=== PATIENT | female | born 1985 | race African-American/Black ===

== ENCOUNTER 2016-12-31 14:55 | Emergency (ER) | payer SELFPAY ==
[~2016-12-31] VITALS: Ht 160 cm; Wt 107.0 kg
[~2016-12-31 14:55] MED LIST: IBUP800T23 PO; LISI-360 PO; PREV30CA36 PO
[2016-12-31 15:00] VITALS: BP 132/95; PULSE 110; RESP 12; TEMP 98; O2SAT 100
[2016-12-31 15:06] VITALS: BP 132/95; PULSE 122; RESP 16; O2SAT 98
[2016-12-31] MEDS ORDERED: SODIUM CHLOR 0.9% 1000 ML INJ 1,000 ML IV ONE ×3 (15:07→17:30)
[2016-12-31] MEDS ORDERED: levETIRAcetam 1000 MG INJ 100 ML IV ONE (15:15)
[2016-12-31] MEDS ORDERED: LORazepam 2 MG/ML VIAL IVS ONE (15:15)
[2016-12-31] MEDS ORDERED: SODIUM CHLORIDE 0.9% FLUSH 5 ML FLUSH IVF PRN (15:15)
[2016-12-31 15:37] LABS: AUTOMATED NEUTROPHIL # 14.3 TH/MM3 (1.8-7.7); BASOPHIL # 0.1 TH/MM3 (0-0.2); BASOPHIL % 0.5 % (0.0-2.0); HEMATOCRIT 41.9 % (35.0-46.0); HEMO FLAGS DIFF FINAL; LYMPH % 8.9 % (9.0-44.0); LYMPHOCYTE # 1.5 TH/MM3 (1.0-4.8); MEAN CELL VOLUME 92.4 FL (80.0-100.0); MEAN CORPUSCULAR HEMOGLOBIN 31.4 PG (27.0-34.0); MONO % 4.7 % (0.0-8.0); NEUT % 85.9 % (16.0-70.0); PLATELET COUNT 320 TH/MM3 (150-450); RED BLOOD COUNT 4.54 MIL/MM3 (4.00-5.30); RED CELL DISTRIBUTION WIDTH 13.2 % (11.6-17.2); WHITE BLOOD COUNT 16.6 TH/MM3 (4.0-11.0)
--- NOTE | 2016-12-31 15:52 | PD ---
HPI Chief Complaint: Seizure Time Seen by Provider: 15:06 Travel History International Travel<30 days: No Contact w/Intl Traveler<30days: No Traveled to known affect area: No History of Present Illness HPI Patient is a 31-year-old female who presents to emergency room with her for evaluation and treatment of seizures. Patient presents to ER with ongoing seizure. As per pt's , patient reports that patient has history of seizures, reports that she is on Keppra for her seizures and has not been able to take her medications for the past 5 days. Reports that she is currently on her menstrual cycle - reports that every time she has her period - she has n/v/d. Patient's reports that for the past 5 days, she has not been able to keep down any foods, fluids, medications. Reports that she had a few seizures yesterday, no trauma to head or neck. Reports that she had a seizure today prior to coming to the emergency room. As per EMS, patient was postictal on route to the emergency room, patient began to have tonic-clonic seizure upon arrival to the emergency room. PFSH Past Medical History Diminished Hearing: No Gastrointestinal Disorders: Yes (GASTRITIS) GERD: Yes Hypertension: Yes Seizures: Yes Influenza Vaccination: No ?: Not LMP: 12/31/2016 Menopausal: No : 2 Para: 1 Miscarriage: 1 Past Surgical History Section: Yes Gynecologic Surgery: Yes ( X1) Other Surgery: Yes (STOMACH BIOPSY) Social History Alcohol Use: No Tobacco Use: No (QUIT SMOKING 2 WEEKS) Substance Use: Yes (MARIJUANA OCCASIONALLY) Allergies-Medications (Allergen,Severity, Reaction): Coded Allergies: No Known Allergies (Unverified , 07/19/14) Reported Meds & Prescriptions Reported Meds & Active Scripts Active Zofran Odt (Ondansetron Odt) 4 Mg Tab 4 Mg SL Q6HR PRN Reported Keppra (Levetiracetam) 500 Mg Tab 500 Mg PO QID Lisinopril 10 Mg Tab 10 Mg PO DAILY Review of Systems ROS Limitations: Altered Mental Status, Unresponsive, Other: (patient actively seizing - unable to provide HPI) Physical Exam Narrative GENERAL: severe distress, pt actively seizing on initial evaluation SKIN: Warm and dry. HEAD: Atraumatic. Normocephalic. EYES: Pupils equal and round. No scleral icterus. No injection or drainage. ENT: No nasal bleeding or discharge. Mucous membranes pink and moist. NECK: Trachea midline. No JVD. CARDIOVASCULAR: tachycardic. No murmur appreciated. RESPIRATORY: No accessory muscle use. Clear to auscultation. Breath sounds equal bilaterally. GASTROINTESTINAL: Abdomen soft, non-tender, nondistended. Hepatic and splenic margins not palpable. MUSCULOSKELETAL: No obvious deformities. No clubbing. No cyanosis. No edema. NEUROLOGICAL patient actively seizing on exam Data Data Last Documented VS Vital Signs Date Time Temp Pulse Resp B/P Pulse Ox O2 Delivery O2 Flow Rate FiO2 12/31/16 16:25 90 12 176/106 100 Nasal Cannula 2 12/31/16 15:00 98.0 Orders Complete Blood Count With Diff (12/31/16 15:07) Electrocardiogram (12/31/16 ) Blood Glucose (12/31/16 15:07) Ecg Monitoring (12/31/16 15:07) Iv Access Insert/Monitor (12/31/16 15:07) Oximetry (12/31/16 15:07) Comprehensive Metabolic Panel (12/31/16 15:07) Sodium Chlor 0.9% 1000 Ml Inj (Ns 1000 M (12/31/16 15:07) Sodium Chloride 0.9% Flush (Ns Flush) (12/31/16 15:15) Lorazepam Inj (Ativan Inj) (12/31/16 15:15) Ua Includes Microscopic (12/31/16 15:07) Levetiracetam 1000 Mg Inj (Keppra 1000 M (12/31/16 15:15) Sodium Chlor 0.9% 1000 Ml Inj (Ns 1000 M (12/31/16 15:15) Bedside Glucose ANETA.AC&HS (12/31/16 15:10) Ondansetron Inj (Zofran Inj) (12/31/16 16:15) Pantoprazole Inj (Protonix Inj) (12/31/16 16:15) Chest, Single Ap (12/31/16 ) Potassium Cl 40 Meq/30 Ml Liq (Kcl 40 Me (01/01/17 09:00) Sodium Chlor 0.9% 1000 Ml Inj (Ns 1000 M (12/31/16 17:30) Labs Laboratory Tests Test 12/31/16 15:18 White Blood Count 16.6 TH/MM3 Red Blood Count 4.54 MIL/MM3 Hemoglobin 14.3 GM/DL Hematocrit 41.9 % Mean Corpuscular Volume 92.4 FL Mean Corpuscular Hemoglobin 31.4 PG Mean Corpuscular Hemoglobin 34.0 % Concent Red Cell Distribution Width 13.2 % Platelet Count 320 TH/MM3 Mean Platelet Volume 8.3 FL Neutrophils (%) (Auto) 85.9 % Lymphocytes (%) (Auto) 8.9 % Monocytes (%) (Auto) 4.7 % Eosinophils (%) (Auto) 0.0 % Basophils (%) (Auto) 0.5 % Neutrophils # (Auto) 14.3 TH/MM3 Lymphocytes # (Auto) 1.5 TH/MM3 Monocytes # (Auto) 0.8 TH/MM3 Eosinophils # (Auto) 0.0 TH/MM3 Basophils # (Auto) 0.1 TH/MM3 CBC Comment DIFF FINAL Differential Comment Sodium Level 136 MEQ/L Potassium Level 3.2 MEQ/L Chloride Level 102 MEQ/L Carbon Dioxide Level 18.5 MEQ/L Anion Gap 16 MEQ/L Blood Urea Nitrogen 14 MG/DL Creatinine 1.11 MG/DL Estimat Glomerular Filtration 68 ML/MIN Rate Random Glucose 112 MG/DL Calcium Level 9.2 MG/DL Total Bilirubin 0.8 MG/DL Aspartate Amino Transf 10 U/L (AST/SGOT) Alanine Aminotransferase 23 U/L (ALT/SGPT) Alkaline Phosphatase 64 U/L Total Protein 8.4 GM/DL Albumin 4.2 GM/DL [facility] Medical Decision Making Medical Screen Exam Complete: Yes Emergency Medical Condition: Yes Interpretation(s) EKG at 1607: NSR at 82bpm, qt/qtc: 394/432, no acute st or t wave changes Vital Signs Date Time Temp Pulse Resp B/P Pulse Ox O2 Delivery O2 Flow Rate FiO2 12/31/16 15:06 122 16 132/95 98 Nasal Cannula 3 12/31/16 15:00 98.0 110 12 132/95 100 CBC & BMP Diagram 12/31/16 15:18 Last Impressions Chest X-Ray 12/31/16 0000 Signed Impressions: Service Date/Time: Saturday, December 31, 2016 17:14 - CONCLUSION: No acute disease. Jeramy Schuster MD Differential Diagnosis electrolyte abnormality, arrhythmia, recurrently seizures secondary to medication noncompliance, gastritis, gastroenteritis Narrative Course Patient is a 31-year-old female who presents to emergency room with her for evaluation of seizure. Patient has history of seizure and is currently on Keppra, reports that for the past 5 days, patient has been unable to take her medication secondary to intractable nausea and vomiting. reports that patient had a few seizures yesterday, patient had a seizure today prior to coming to emergency room. Patient was brought to the emergency room by [facility] - she was postictal during transport. Upon presentation to emergency room, patient began having a tonic-clonic seizure. 2 mg of Ativan was given to patient as well Keppra load. labs ordered , patient placed on monitor - will continue to monitor patient Patient re-evaluated, patient now awake and alert x 3, pt reports pain to epigastrium, reports that she has been feeling nauseous and has been vomiting for the past 5 days and has not been able to keep down any medications or foods or fluid at this time. Patient reevaluated, patient reports that she is feeling much better. Patient is not drinking fluids without any difficulty. Patient's abdomen is soft, nontender, nondistended, no peritoneal signs. CBC WBC 16.6 Hemoglobin 14.3 Hematocrit 41.9 Platelets 320 BMP Sodium 136 Chloride 102 Potassium 3.2 Carbon dioxide 18.5 BUN 14 Creatinine 1.11 AST 10 ALT 23 Alkaline phosphatase 64 Leukocytosis most likely from stress response from intractable nausea and vomiting for the past 5 days. I did offer patient admission to the hospital as she had 2 seizures today, like to be discharged home with her as she can tolerate oral fluids at this time. Signs and symptoms of when to return to the emergency room was reviewed with patient. Patient will follow-up with primary care doctor and return to ER as needed. Patient was able to drink a cup of water prior to discharge. Diagnosis Primary Impression: Seizure Additional Impressions: Hypokalemia Dehydration Patient Instructions: General Instructions Additional Instructions: Please provide patient with a copy of her labs discharge Please return to emergency room if symptoms return or worsen Please return to emergency room immediately if you have another seizure tonight Please drink plenty of fluids Please follow-up with a neurologist as soon as possible Med/Other Pt SpecificInfo: Prescription(s) given Scripts Ondansetron Odt (Zofran Odt)4 Mg Tab4 Mg SL Q6HR PRN (Nausea/Vomiting) #30 TAB Ref 0 Prov:Theresa Starr DO 12/31/16 Disposition: 01 DISCHARGE HOME Condition: Stable Theresa Starr DO Dec 31, 2016 15:52
[2016-12-31 15:56] LABS: ANION GAP 16 MEQ/L (5-15); AST (GOT) 10 U/L (15-37); BICARBONATE 18.5 MEQ/L (21.0-32.0); BLOOD UREA NITROGEN 14 MG/DL (7-18); CHLORIDE 102 MEQ/L (98-107); POTASSIUM 3.2 MEQ/L (3.5-5.1); SODIUM (NA) 136 MEQ/L (136-145)
[2016-12-31 16:01] LABS: ALKALINE PHOSPHATASE 64 U/L (45-117); ALT (GPT) 23 U/L (10-53); GLOMERULAR FILTRATION RATE 68 ML/MIN (>89); TOTAL BILIRUBIN ADULT 0.8 MG/DL (0.2-1.0)
[2016-12-31] MEDS ORDERED: PANTOPRAZOLE SODIUM 40 MG VIAL IVP ONE (16:15)
[2016-12-31] MEDS ORDERED: ONDANSETRON HCL 4 MG/2 ML VIAL IVP ONE (16:15)
[2016-12-31 16:25] VITALS: BP 176/106; PULSE 90; RESP 12; O2SAT 100
[2016-12-31] MEDS ORDERED: LEVE500 PO (16:37)
[2016-12-31] MEDS ORDERED: LISI10TA3 PO (16:37)
--- NOTE | 2016-12-31 17:42 | RADRPT ---
EXAM DATE/TIME: 12/31/2016 17:14 [facility] COMPARISON: No previous studies available for comparison. INDICATIONS : Vomiting MEDICAL HISTORY : Cardiovascular disease. SURGICAL HISTORY : None. ENCOUNTER: Initial ACUITY: 1 week PAIN SCORE: 8/10 LOCATION: Bilateral chest FINDINGS: A single view of the chest demonstrates the lungs to be symmetrically aerated without evidence of mas s, infiltrate or effusion. The cardiomediastinal contours are unremarkable. Osseous structures are intact. There is no evidence of free air in the upper abdomen. CONCLUSION: No acute disease. Jeramy Schuster MD on December 31, 2016 at 17:41 Board Certified Radiologist. This report was verified electronically.
[2016-12-31] MEDS ORDERED: ZOFR4TAB3 SL (17:48)
[2016-12-31 18:07] VITALS: BP 176/111; PULSE 90; RESP 16; O2SAT 100
[2016-12-31 19:02] VITALS: BP 176/99
[2016-12-31] MEDS ORDERED: POTASSIUM CL 40 MEQ/30 ML LIQ UDC PO ONE (19:15)
[2017-01-01] MEDS ORDERED: POTASSIUM CL 40 MEQ/30 ML LIQ UDC NG SCH (09:00)
--- NOTE | 2017-01-01 10:50 | EKG ---
Date Performed: 12/31/2016 Time Performed: 16:07:38 PTAGE: 31 years EKG: Sinus rhythm SLIGHT NONSPECIFIC INTRAVENTRICULAR CONDUCTION DELAY, MAY BE A NORMAL VARIANT. NORMAL ECG NO PREVIOUS TRACING DOCTOR: Jamie Cadet Interpretating Date/Time 01/01/2017 10:48:51
[2017-01-11] MEDS ORDERED: CARV3.12 PO ×2 (14:53→15:09)
[2017-01-11] MEDS ORDERED: AMLO10TA2 PO ×2 (14:53→15:09)
[2017-01-11] MEDS ORDERED: LISI40TA PO ×2 (14:53→15:09)
[2017-01-11] MEDS ORDERED: ZOFR4TAB3 SL (15:09)
[2017-01-11] MEDS ORDERED: KEPP10002 PO (15:09)
[2017-01-11] MEDS ORDERED: DILA100C PO (15:09)
== END 2016-12-31 19:25 | disposition home or self-care (01) ==
LOC: NEPC 14:55
DX: R56.9 Unspecified convulsions (principal); E87.6 Hypokalemia; E86.0 Dehydration; D72.829 Elevated white blood cell count, unspecified; R11.2 Nausea with vomiting, unspecified; I10 Essential (primary) hypertension; K21.9 Gastro-esophageal reflux disease without esophagitis; Z87.891 Personal history of nicotine dependence
CPT/HCPCS: 71010; 80053; 85025; 93005; 96361; 96365; 96374; 96375; 99284; C9113; J1953; J2060; J2405; J7030

== ENCOUNTER 2017-01-02 06:59 | Inpatient (IN) | payer SELFPAY ==
[2017-01-02] VITALS (9 sets, daily range): BP systolic 139–179; BP diastolic 63–115; PULSE 82–102; RESP 16–18; TEMP 96.7–98.8; O2SAT 97–100
[~2017-01-02] VITALS: Ht 172.7 cm; Wt 115.0 kg
[~2017-01-02 06:59] MED LIST changes: -IBUP800T23 PO; +LEVE500 PO; -LISI-360 PO; +LISI10TA3 PO; -PREV30CA36 PO; +ZOFR4TAB3 SL
[2017-01-02] MEDS: SODIUM CHLORIDE 0.9% FLUSH 5 ML FLUSH IVF PRN ×2 (07:00→07:38)
--- NOTE | 2017-01-02 07:26 | PD ---
HPI Chief Complaint: Seizure Time Seen by Provider: 07:24 Travel History International Travel<30 days: No Contact w/Intl Traveler<30days: No Traveled to known affect area: No History of Present Illness HPI 31-year-old female with history of seizures, gastritis, presents to the ER brought in by EMS because she had 10-12 seizures this morning according to family. She was seen in the ER several days ago for seizures, has been having problems with her gastritis so she is vomiting up her seizure medication. She is currently post ictal. They deny any other issues. Modifying Factors: None Associated Signs & Symptoms: Multiple seizures today Risk Factors: History of seizures PFSH Past Medical History Cardiovascular Problems: Yes (HBP) Diminished Hearing: No Gastrointestinal Disorders: Yes (GASTRITIS) GERD: Yes Hypertension: Yes Seizures: Yes Menopausal: No : 2 Para: 1 Miscarriage: 1 Past Surgical History Section: Yes Gynecologic Surgery: Yes ( X1) Other Surgery: Yes (STOMACH BIOPSY) Social History Alcohol Use: No Tobacco Use: No (QUIT SMOKING 2 WEEKS) Substance Use: Yes (MARIJUANA OCCASIONALLY) Allergies-Medications (Allergen,Severity, Reaction): Coded Allergies: No Known Allergies (Unverified , 01/02/17) Reported Meds & Prescriptions Reported Meds & Active Scripts Active Zofran Odt (Ondansetron Odt) 4 Mg Tab 4 Mg SL Q6HR PRN Reported Keppra (Levetiracetam) 500 Mg Tab 500 Mg PO QID Lisinopril 10 Mg Tab 10 Mg PO DAILY Review of Systems ROS Limitations: Altered Mental Status Physical Exam Narrative GENERAL: Well-nourished, well-developed young -[place] female patient who is currently awake, alert, but disoriented and not able to answer questions. SKIN: Warm and dry. HEAD: Normocephalic. EYES: No scleral icterus. No injection or drainage. NECK: Supple, trachea midline. CARDIOVASCULAR: Regular rate and rhythm without murmurs, gallops, or rubs. RESPIRATORY: Breath sounds equal bilaterally. No accessory muscle use. GASTROINTESTINAL: Abdomen soft, non-tender, nondistended. MUSCULOSKELETAL: No cyanosis, or edema. BACK: Nontender without obvious deformity. No CVA tenderness. Data Data Last Documented VS Vital Signs Date Time Temp Pulse Resp B/P Pulse Ox O2 Delivery O2 Flow Rate FiO2 01/02/17 09:00 84 17 175/91 100 Room Air 01/02/17 07:04 98.5 Orders Complete Blood Count With Diff (01/02/17 07:20) Electrocardiogram (01/02/17 ) Blood Glucose (01/02/17 07:20) Ecg Monitoring (01/02/17 07:20) Iv Access Insert/Monitor (01/02/17 07:20) Oximetry (01/02/17 07:20) Comprehensive Metabolic Panel (01/02/17 07:20) Sodium Chloride 0.9% Flush (Ns Flush) (01/02/17 07:30) Ondansetron Inj (Zofran Inj) (01/02/17 07:45) Labs Laboratory Tests Test 01/02/17 07:00 White Blood Count 14.5 TH/MM3 Red Blood Count 4.14 MIL/MM3 Hemoglobin 13.2 GM/DL Hematocrit 38.4 % Mean Corpuscular Volume 92.9 FL Mean Corpuscular Hemoglobin 31.9 PG Mean Corpuscular Hemoglobin 34.4 % Concent Red Cell Distribution Width 13.3 % Platelet Count 302 TH/MM3 Mean Platelet Volume 9.9 FL Neutrophils (%) (Auto) 81.3 % Lymphocytes (%) (Auto) 13.3 % Monocytes (%) (Auto) 4.7 % Eosinophils (%) (Auto) 0.1 % Basophils (%) (Auto) 0.6 % Neutrophils # (Auto) 11.8 TH/MM3 Lymphocytes # (Auto) 1.9 TH/MM3 Monocytes # (Auto) 0.7 TH/MM3 Eosinophils # (Auto) 0.0 TH/MM3 Basophils # (Auto) 0.1 TH/MM3 CBC Comment AUTO DIFF Differential Comment AUTO DIFF CONFIRMED Platelet Estimate NORMAL Platelet Morphology Comment NORMAL Sodium Level 138 MEQ/L Potassium Level 3.9 MEQ/L Chloride Level 104 MEQ/L Carbon Dioxide Level 23.9 MEQ/L Anion Gap 10 MEQ/L Blood Urea Nitrogen 12 MG/DL Creatinine 0.97 MG/DL Estimat Glomerular Filtration 80 ML/MIN Rate Random Glucose 99 MG/DL Calcium Level 8.7 MG/DL Total Bilirubin 0.9 MG/DL Aspartate Amino Transf 25 U/L (AST/SGOT) Alanine Aminotransferase 20 U/L (ALT/SGPT) Alkaline Phosphatase 56 U/L Total Protein 7.5 GM/DL Albumin 3.8 GM/DL MDM Medical Decision Making Medical Screen Exam Complete: Yes Emergency Medical Condition: Yes Medical Record Reviewed: Yes Interpretation(s) EKG shows NSR, no ST elevation or depression, and no arrhythmias. No significant T-wave inversions. Laboratory Tests Test 01/02/17 07:00 White Blood Count 14.5 TH/MM3 (4.0-11.0) Neutrophils (%) (Auto) 81.3 % (16.0-70.0) Neutrophils # (Auto) 11.8 TH/MM3 (1.8-7.7) Estimat Glomerular Filtration 80 ML/MIN (>89) Rate Differential Diagnosis Seizuresbreakthrough seizures versus metabolic issues Narrative Course Patient with known history of seizures, has been vomiting up her Keppra according to family and has had multiple seizures this morning. She arrived post ictal, still postictal in the ER. She has had no further episodes of seizure in the ER. At this point, my plan would be to medically admit her for further evaluation and treatment with neurology. Case was discussed with family practice resident service for admission. Lab work did not indicate any significant metabolic issues. Vital signs are stable. Diagnosis Primary Impression: Seizure Admitting Information Admitting Physician Requests: Admit Mason Olivares MD Jan 02, 2017 07:26
[2017-01-02] MEDS ORDERED: ONDANSETRON HCL 4 MG/2 ML VIAL IV PUSH ONE (07:45)
[2017-01-02 07:53] LABS: AUTOMATED NEUTROPHIL # 11.8 TH/MM3 (1.8-7.7); BASOPHIL # 0.1 TH/MM3 (0-0.2); BASOPHIL % 0.6 % (0.0-2.0); EOSINOPHIL % 0.1 % (0.0-4.0); HEMATOCRIT 38.4 % (35.0-46.0); LYMPH % 13.3 % (9.0-44.0); LYMPHOCYTE # 1.9 TH/MM3 (1.0-4.8); MEAN CELL VOLUME 92.9 FL (80.0-100.0); MEAN CORPUSCULAR HEMOGLOBIN 31.9 PG (27.0-34.0); MEAN CORPUSCULAR HGB CONC 34.4 % (32.0-36.0); MONO % 4.7 % (0.0-8.0); NEUT % 81.3 % (16.0-70.0); PLATELET COUNT 302 TH/MM3 (150-450); RED BLOOD COUNT 4.14 MIL/MM3 (4.00-5.30); RED CELL DISTRIBUTION WIDTH 13.3 % (11.6-17.2); WHITE BLOOD COUNT 14.5 TH/MM3 (4.0-11.0)
[2017-01-02 08:15] LABS: ALKALINE PHOSPHATASE 56 U/L (45-117); ALT (GPT) 20 U/L (10-53); ANION GAP 10 MEQ/L (5-15); AST (GOT) 25 U/L (15-37); BICARBONATE 23.9 MEQ/L (21.0-32.0); BLOOD UREA NITROGEN 12 MG/DL (7-18); CHLORIDE 104 MEQ/L (98-107); GLOMERULAR FILTRATION RATE 80 ML/MIN (>89); SODIUM (NA) 138 MEQ/L (136-145); TOTAL BILIRUBIN ADULT 0.9 MG/DL (0.2-1.0)
[2017-01-02 08:16] LABS: POTASSIUM 3.9 MEQ/L (3.5-5.1)
[2017-01-02 08:37] LABS: HEMO FLAGS AUTO DIFF
[2017-01-02 09:12] LABS: PLATELET ESTIMATE SMEAR NORMAL (NORMAL); PLATELET MORPHOLOGY NORMAL (NORMAL); SCAN/DIFF AUTO DIFF CONFIRMED
--- NOTE | 2017-01-02 09:41 | HHI.HP ---
HPI Service Family Medicine Primary Care Physician No Primary Care Physician Admission Diagnosis multiple seizures Diagnoses: Chief Complaint: seizures International Travel<30 Days: No Contact w/Intl Traveler<30days: No Known Affected Area: No History of Present Illness 31 y/o -[place] female with history of HTN and seizures, presents with multiple seizures at home. History obtained from , who was presents. Pt in post-ictal state. States she was in bathtub this morning and had several seizures. Per spouse, was shaking uncontrollably, foaming at mouth, and was biting on tongue. No loss of bowel/bladder function. Is on Keppra at home. Has history of gastritis and for the last 7 days, has been unable to keep any food down or her medications. She was seen in ED 2 days ago for seizures as well. Has no neurologist, due to no insurance. Has no PCP. Per , states pt has had seizures for at least 8 years, unsure of when she started having them. ( Zach Wynn MD R1) Review of Systems ROS Limitations: Clinical Condition (post-ictal) (Zach Wynn MD R1) Past Family Social History Past Medical History HTN Seizures Gastritis Hypokalemia Past Surgical History Stomach biopsy Reported Medications Reported Meds & Active Scripts Active Zofran Odt (Ondansetron Odt) 4 Mg Tab 4 Mg SL Q6HR PRN Reported Keppra (Levetiracetam) 500 Mg Tab 500 Mg PO QID Lisinopril 10 Mg Tab 10 Mg PO DAILY (Zach Wynn MD R1) Allergies: Coded Allergies: No Known Allergies (Unverified , 01/02/17) Active Ordered Medications Active Medications IV Flush (NS Flush) 2 ml UNSCH PRN IVF Last administered on 01/02/17 07:38; Admin Dose 2 ML; Start 01/02/17 at 07:30 Ondansetron HCl (Zofran Inj) 4 mg ONCE ONCE IV PUSH Last administered on 07:37; Admin Dose 4 MG; Start 01/02/17 at 07:45; Stop 01/02/17 at 07:46; Status DC Family History Dad & mom have hx of epilepsy Social History Trying to go to school Hx of marijuana, quit 3 weeks ago No tobacco use No alcohol use (Zach Wynn MD R1) Physical Exam Vital Signs Vital Signs Date Time Temp Pulse Resp B/P Pulse Ox O2 Delivery O2 Flow Rate FiO2 01/02/17 09:00 84 17 175/91 100 Room Air 01/02/17 07:25 18 100 Room Air 01/02/17 07:05 86 18 100 Room Air 01/02/17 07:04 98.5 83 18 145/97 100 Physical Exam GENERAL: This is a well-nourished, well-developed patient. Awake, alert, unable to answer questions SKIN: Acanthosis nigrans on neck. Cool and dry. HEAD: Atraumatic. Normocephalic. No temporal or scalp tenderness. EYES: Pupils equal round and reactive. Extraocular motions intact. No scleral icterus. No injection or drainage. NECK: Trachea midline. No JVD or lymphadenopathy. Supple, nontender CARDIOVASCULAR: Regular rate and rhythm without murmurs, gallops, or rubs. RESPIRATORY: Clear to auscultation. Breath sounds equal bilaterally. No wheezes , rales, or rhonchi. GASTROINTESTINAL: Abdomen soft, non-tender, nondistended. No hepato-splenomegaly , or palpable masses. No guarding. MUSCULOSKELETAL: Extremities without clubbing, cyanosis, or edema. No joint tenderness, effusion, or edema noted. No calf tenderness. NEUROLOGICAL: Awake and alert. Not oriented, unable to answer questions. Laboratory Laboratory Tests Test 01/02/17 07:00 White Blood Count 14.5 Red Blood Count 4.14 Hemoglobin 13.2 Hematocrit 38.4 Mean Corpuscular Volume 92.9 Mean Corpuscular Hemoglobin 31.9 Mean Corpuscular Hemoglobin 34.4 Concent Red Cell Distribution Width 13.3 Platelet Count 302 Mean Platelet Volume 9.9 Neutrophils (%) (Auto) 81.3 Lymphocytes (%) (Auto) 13.3 Monocytes (%) (Auto) 4.7 Eosinophils (%) (Auto) 0.1 Basophils (%) (Auto) 0.6 Neutrophils # (Auto) 11.8 Lymphocytes # (Auto) 1.9 Monocytes # (Auto) 0.7 Eosinophils # (Auto) 0.0 Basophils # (Auto) 0.1 CBC Comment AUTO DIFF Differential Comment AUTO DIFF CONFIRMED Platelet Estimate NORMAL Platelet Morphology Comment NORMAL Sodium Level 138 Potassium Level 3.9 Chloride Level 104 Carbon Dioxide Level 23.9 Anion Gap 10 Blood Urea Nitrogen 12 Creatinine 0.97 Estimat Glomerular Filtration 80 Rate Random Glucose 99 Calcium Level 8.7 Total Bilirubin 0.9 Aspartate Amino Transf 25 (AST/SGOT) Alanine Aminotransferase 20 (ALT/SGPT) Alkaline Phosphatase 56 Total Protein 7.5 Albumin 3.8 (Zach Wynn MD R1) Result Diagram: 01/02/17 0700 01/02/17 0700 Assessment and Plan Assessment and Plan 31 y/o female with history of seizures and HTN presents with uncontrolled seizures after unable to keep anti-seizure medications down. Will admit for seizure management. Code Status Full Discussed Condition With Dr. Doss (Zach Wynn MD R1) Attending Attestation Patient seen and examined. Case reviewed and discussed with the resident team. Agree with plan of care as discussed with me and documented in the resident note. (Montserrat Villeda MD) Problem List: (1) Seizure Status: Acute Plan: History of seizures, on Keppra at home Witnessed several seizures at home by No neurologist -Consult neurology,appreciate recs -Start Keppra 1000mg IV, followed by Keppra 500mg PO q12H -Dilantin 1000mg IV, then Dilantin 100mg IV q8H -Ativan PRN seizures -Seizure precautions -UDS -Neuro checks q4H -Consult CM (2) HTN (hypertension) Status: Acute Plan: 145/97 on admission. History of HTN Per spouse, on several blood pressure meds, but only lisinopril listed on EMR -Continue lisinopril 10mg daily -Spouse will bring in other BP meds -Hydralazine 10mg PRN SBP>180, DBP>100 (3) Nausea & vomiting Status: Acute Plan: Hx of gastritis -Zofran PRN nausea -Protonix 40mg IV daily (4) FEN Status: Acute Plan: Fluids: none Electrolytes: wnl, continue to monitor Nutrition: NPO DVT ppx: SCDs (Zach Wynn MD R1) Physician Certification 2 Midnight Certification Type: Admission for Inpatient Services Order for Inpatient Services The services are ordered in accordance with Medicare regulations or non- Medicare payer requirements, as applicable. In the case of services not specified as inpatient-only, they are appropriately provided as inpatient services in accordance with the 2-midnight benchmark. Estimated LOS (days): 3 days is the estimated time the patient will need to remain in the hospital, assuming treatment plan goals are met and no additional complications. Post-Hospital Plan: Home (Zach Wynn MD R1) Problem Qualifiers (1) HTN (hypertension): Qualified Code: I10 - Essential hypertension (2) Nausea & vomiting: Qualified Code: R11.2 - Nausea and vomiting, intractability of vomiting not specified, unspecified vomiting type Zach Wynn MD R1 Jan 02, 2017 09:41 Montserrat Villeda MD Jan 02, 2017 14:29
[2017-01-02] MEDS ORDERED: levETIRAcetam 1000 MG INJ 100 ML IV ONE (09:45)
[2017-01-02] MEDS ORDERED: hydrALAZINE HCL 20 MG/ML VIAL IV PRN (09:45)
[2017-01-02] MEDS ORDERED: IBUPROFEN 600 MG TAB PO PRN (09:45)
[2017-01-02] MEDS ORDERED: ACETAMINOPHEN 325 MG TAB PO PRN (09:45)
[2017-01-02] MEDS ORDERED: SODIUM CHLORIDE 0.9% FLUSH 5 ML FLUSH IVF PRN (09:45)
--- NOTE | 2017-01-02 10:03 | HHI.FPPN ---
Subjective Remarks Pt. seen, examined and discussed with Drs. Doss and Tianna. This is a 31 yo AA female with known seizure history who was observed by family this a.m. to have 10-12 seizures at home. apparently has been experiencing nausea and vomiting and has been unable to keep her Keppra down. She arrived in ED in a post-ictal state. Pt. was seen in ED 12-31-16 with history of several days of n/v/d which she often experienced while on her menses. She had had several seizures prior to the ED visit. Information obtained from the spouse; apparently has had seizure disorder as long as they have been together ( 8 years) and ? long before that. PMH: hypertension and seizures and GERD See H&P for this admission for additional past, family and social history. Pt. is post-ictal. Has been hospitalized at [facility] in past for her seizures. Objective Vitals Vital Signs Date Time Temp Pulse Resp B/P Pulse Ox O2 Delivery O2 Flow Rate FiO2 01/02/17 09:00 84 17 175/91 100 Room Air 01/02/17 07:25 18 100 Room Air 01/02/17 07:05 86 18 100 Room Air 01/02/17 07:04 98.5 83 18 145/97 100 Result Diagram: 01/02/17 0700 01/02/17 0700 Objective Remarks O. CONSTITUTIONAL/GEN: normally nourished, somnolent/ post-ictal. EYES: conjunctiva normal ENT: Mouth closed; has been vomiting while in ED NECK: acanthosis nigricans LUNGS: clear A-P, respiratory effort is normal. CARDIOVASCULAR: RR without murmur or gallop. No significant edema. GI/ABD: soft without masses, without organomegaly. BS + NEURO: Pt is post-ictal and nonverbal SKIN: color normal, no rashes noted, acanthosis nigricans HEME/LYMPH: no bruising, petechia or significant adenopathy MUSC: Extremities are normal in appearance. PSYCH/MENTAL STATUS: Barely arousable, opens eyes at times, nonverbal at this time A/P Assessment and Plan 31 yo AA female with known seizure disorder on Keppra with exacerbation of her GERD and n/v/d which she experiences when menstruating. Has been unable to keep her seizure medication down. Admit to inpatient, EEG, monitor for seizures. Attending Attestation Patient seen and examined. Case reviewed and discussed with the resident team. Agree with plan of care as discussed with me and documented in the resident note. Montserrat Villeda MD Jan 02, 2017 10:03
[2017-01-02] MEDS: PANTOPRAZOLE SODIUM 40 MG VIAL IV PUSH SCH (10:07)
[2017-01-02] MEDS ORDERED: LORazepam 2 MG/ML VIAL IV PRN (10:45)
[2017-01-02] MEDS ORDERED: PHENYTOIN INJ 1,000 MG in SODIUM CHLORIDE 0.9% INJ 100 ML IV ONE (11:00)
--- NOTE | 2017-01-02 11:56 | MB ---
cc: ALICIA RUSSO M.D. DATE OF CONSULTATION: 01/02/2017 REASON FOR CONSULTATION A 31-year-old woman seen in consultation because of multiple seizures today. HISTORY OF PRESENT ILLNESS She apparently had multiple seizures at home. She had been vomiting her Keppra. There were no seizures in the emergency room. She has been given Keppra one gram IV and now also receiving one gram of Dilantin at the time of my visit to the patient in the emergency room. The patient reportedly takes Keppra 500 mg four times a day and lisinopril 10 mg daily. It is reported that she does not see doctors outpatient because of no insurance. NEUROLOGICAL EXAMINATION The neurological exam showed the patient to be lethargic but partially aroused. An EEG was in progress. She was following commands, moving all four extremities, but she would not count fingers. She looked lethargic for the exam. Reflexes were 2+ at the knees and ankles, 1+ at the elbows, and plantar response flexor. LABORATORY Blood work includes white count 14.5, hemoglobin 13.2, platelets 302. Chemistry essentially normal. Toxicology: Alcohol less than 3. IMAGING No imaging studies of the brain encountered on the lifetime summary here. ASSESSMENT Status epilepticus, no additional seizures after arriving in the ER. She has been treated with Keppra IV and Dilantin IV. An EEG was in progress showing no overt epileptiform discharges. RECOMMENDATIONS Continue Keppra and dose should be one gram twice a day, and also continue Dilantin 100 mg three times a day. Will request an MRI of the brain as well. Thank you for asking us to assist in her care. MD SAUL Serrano/BT /11:18 AM /11:49 AM
--- NOTE | 2017-01-02 12:48 | MG ---
cc: MARCIO VALENTIN M.D. Lab No: [id number] Date: 01/02/2017 Age: Sex: F Race: TECHNIQUE 17-channel EEG. DESCRIPTION: The background rhythm reveals mild slowing in the theta range at roughly 5-6 Hz. There is occasional muscle artifact present. There is some beta activity as well which is probably medication effect. No lateralizing features are seen. No epileptiform discharges are present. INTERPRETATION Mildly abnormal study on the basis of mild slowing, consistent with either drowsy state or mild encephalopathy. No epileptiform features are seen. MD ROLAND Trevino/KINGS /12:38 PM /12:46 PM
[2017-01-02] MEDS ORDERED: GADODIAMIDE PF 287 MG/ML 5 ML VIAL (for RAD MRI) IV ONE (13:25)
--- NOTE | 2017-01-02 13:46 | RADRPT ---
EXAM DATE/TIME: 01/02/2017 13:03 [facility] COMPARISON: No previous studies available for comparison. INDICATIONS : Seizures. CONTRAST: 23 cc Omniscan (gadodiamide) IV MEDICAL HISTORY : Seizures. Hypertension. SURGICAL HISTORY : section. ENCOUNTER: Initial ACUITY: 1 day PAIN SCORE: Nonresponsive. LOCATION: Head TECHNIQUE: Multiplanar, multisequence MRI of the brain was performed both prior to and following the administrat ion of paramagnetic contrast. FINDINGS: CEREBRUM: The ventricles are normal for age. No evidence of midline shift, mass lesion, hemorrhage or acute in farction. No extraaxial fluid collections are seen. The pituitary gland and suprasellar cistern are normal in configuration. WHITE MATTER: No significant signal abnormalities are seen in the white matter. POSTERIOR FOSSA: The cerebellum and brainstem are intact. The 4th ventricle is midline. The cerebellopontine angle is unremarkable. The cerebellar tonsils are normal in position. DIFFUSION IMAGING: No focal areas of restricted diffusion are seen. No evidence of acute infarction. EXTRACRANIAL: The visualized portions of the orbits and paranasal sinuses are unremarkable. POST-CONTRAST: No abnormal areas of parenchymal or dural enhancement. No evidence of blood-brain barrier breakdown. CONCLUSION: Unremarkable exam. Jeramy Schuster MD on January 02, 2017 at 13:39 Board Certified Radiologist. This report was verified electronically.
[2017-01-02] MEDS: PHENYTOIN INJ 100 MG/2 ML VIAL IVS SCH (17:56)
[2017-01-02] MEDS: levETIRAcetam 500 MG TAB PO SCH ×2 (17:58→20:41)
[2017-01-02] MEDS: ONDANSETRON HCL 4 MG/2 ML VIAL IV PUSH PRN ×2 (17:58→23:30)
[2017-01-02] MEDS: SODIUM CHLORIDE 0.9% FLUSH 5 ML FLUSH IVF SCH (20:41)
[2017-01-02] MEDS: DOCUSATE SODIUM 50 MG/SENNA 8.6 MG TAB PO SCH (20:41)
--- NOTE | 2017-01-02 22:45 | EKG ---
Date Performed: 01/02/2017 Time Performed: 07:42:08 PTAGE: 31 years EKG: Sinus rhythm WITH SHORT SD INTERVAL BORDERLINE ECG PREVIOUS TRACING : 12/31/2016 16.07 DOCTOR: Genia Ramirez Interpretating Date/Time 01/02/2017 22:43:45
[2017-01-03] VITALS (7 sets, daily range): BP systolic 129–170; BP diastolic 78–106; PULSE 79–105; RESP 16–20; TEMP 98.1–99.3; O2SAT 96–99
[2017-01-03] MEDS: PHENYTOIN INJ 100 MG/2 ML VIAL IVS SCH ×2 (01:56→09:28)
[2017-01-03 07:17] LABS: AUTOMATED NEUTROPHIL # 10.4 TH/MM3 (1.8-7.7); BASOPHIL % 0.4 % (0.0-2.0); EOSINOPHIL % 0.1 % (0.0-4.0); HEMO FLAGS DIFF FINAL; LYMPHOCYTE # 1.5 TH/MM3 (1.0-4.8); MEAN CELL VOLUME 93.8 FL (80.0-100.0); MEAN CORPUSCULAR HEMOGLOBIN 32.1 PG (27.0-34.0); MEAN CORPUSCULAR HGB CONC 34.2 % (32.0-36.0); MONO % 6.7 % (0.0-8.0); NEUT % 80.8 % (16.0-70.0); PLATELET COUNT 287 TH/MM3 (150-450); RED BLOOD COUNT 4.27 MIL/MM3 (4.00-5.30); RED CELL DISTRIBUTION WIDTH 13.5 % (11.6-17.2); WHITE BLOOD COUNT 12.9 TH/MM3 (4.0-11.0)
[2017-01-03] MEDS ORDERED: levETIRAcetam 500 MG TAB PO SCH (09:00)
[2017-01-03] MEDS: DOCUSATE SODIUM 50 MG/SENNA 8.6 MG TAB PO SCH ×2 (09:00→21:13)
[2017-01-03] MEDS: levETIRAcetam 500 MG TAB PO SCH (09:26)
[2017-01-03] MEDS: LISINOPRIL 10 MG TAB PO SCH (09:26)
[2017-01-03] MEDS: PANTOPRAZOLE SODIUM 40 MG VIAL IV PUSH SCH (09:29)
[2017-01-03] MEDS: SODIUM CHLORIDE 0.9% FLUSH 5 ML FLUSH IVF SCH ×2 (09:45→23:20)
--- NOTE | 2017-01-03 11:34 | HHI.FPPN ---
Subjective Remarks No acute events overnight. Vital signs remained stable. She has not had any recurrence of seizures. She denies any chest pain, shortness of breath, abdominal pain, nausea, vomiting, or new concerns at this time. She feels as though she is ready to start eating a bowl like to begin on a liquid diet and advance as tolerated. (Casey Lopez MD R3) Objective Vitals Vital Signs Date Time Temp Pulse Resp B/P Pulse Ox O2 Delivery O2 Flow Rate FiO2 01/03/17 08:00 98.1 82 20 136/91 97 01/03/17 04:53 98.7 79 16 157/106 96 01/02/17 23:42 98.8 82 18 179/115 100 01/02/17 19:30 98.8 91 16 165/115 99 01/02/17 17:40 96.7 93 16 156/107 100 01/02/17 14:00 97.8 96 18 158/82 100 Room Air 01/02/17 11:43 98.0 102 18 139/63 100 Room Air (Casey Lopez MD R3) Result Diagram: 01/03/17 0614 01/02/17 0700 Objective Remarks GEN: well nourished, alert, conversive EYES: conjunctiva normal, no icterus or injection NECK: acanthosis nigricans LUNGS: clear A-P, respiratory effort is normal. CARDIOVASCULAR: RR without murmur or gallop. No significant edema. GI/ABD: soft without masses, without organomegaly. BS + NEURO: Alert, oriented, CN II-XII intact SKIN: color normal, no rashes noted, acanthosis nigricans MUSC: MAEWD. No LE swelling or TTP. PSYCH: judgment/insight intact. Normal speech. (Casey Lopez MD R3) A/P Assessment and Plan 31 yo AA female with known seizure disorder on Keppra who presents with seizure following nausea/vomiting and inability to tolerate PO intake. Discharge Planning Pending clearance by neurology and tolerating PO. Anticipate discharge to home as early as tomorrow. (Casey Lopez MD R3) Attending Attestation Patient seen and examined. Case reviewed and discussed with the resident team. Agree with plan of care as discussed with me and documented in the resident note. (Montserrat Villeda MD) Problem List: (1) Seizure Status: Acute Plan: History of seizures, on Keppra at home, initially presented with several witnessed seizures at home by . Does not currently have a neurologist. Currently well controlled without recurrence since admission. -Neurology following, Dr. Beltran-- thank you for recs -Continue Keppra 1000mg PO q12H -Continue Dilantin 100mg PO q8H -Ativan PRN seizures -Seizure precautions -UDS -Neuro checks q4H -Consult CM -MRI brain: no acute findings (2) HTN (hypertension) Status: Acute Plan: Currently 129/78. Per spouse, on several blood pressure meds, but only lisinopril listed on EMR -Continue BARLEY STEEPER lisinopril 10mg daily -Spouse will bring in other BP meds -Clonidine 0.1mg q6hrs prn BP >160/90 (3) Nausea & vomiting Status: Acute Plan: Improving. Hx of gastritis, could also be due to viral gastroenteritis. -Zofran PRN nausea -Protonix 40mg IV daily -Supportive care -ADAT (4) FEN Status: Acute Plan: Fluids: PO Electrolytes: wnl, continue to monitor Nutrition: ADAT DVT ppx: SCDs (Casey Lopze MD R3) Problem Qualifiers (1) HTN (hypertension): Qualified Code: I10 - Essential hypertension (2) Nausea & vomiting: Qualified Code: R11.2 - Nausea and vomiting, intractability of vomiting not specified, unspecified vomiting type Casey Lopez MD R3 Jan 03, 2017 11:34 Montserrat Villeda MD Jan 03, 2017 15:13
[2017-01-03] MEDS: ONDANSETRON HCL 4 MG/2 ML VIAL IV PUSH PRN (14:57)
[2017-01-03] MEDS ORDERED: cloNIDine HCL 0.1 MG TAB PO PRN (15:00)
[2017-01-03] MEDS ORDERED: PHENYTOIN SODIUM 100 MG CAP PO SCH (17:30)
[2017-01-03] MEDS: PHENYTOIN INJ 100 MG/2 ML VIAL IV SCH (18:12)
--- NOTE | 2017-01-03 18:17 | HHI.PR ---
Review/Management Daily Summary 01/03 vomiting eeg not epileptiform dilantin level low at 6.9 but no further seizures change to dilantin and keppra iv Subjective Subjective Comments No acute events reported No seizures today Active Medications Current Medications Medications (Trade) Dose Ordered Sig/Marla Route Start Time Stop Time Status Last Admin (NS Flush) 2 ml UNSCH PRN IVF 01/02/17 09:45 (NS Flush) 2 ml BID IVF 01/02/17 21:00 01/03/17 09:45 (Tylenol) 650 mg Q4H PRN PO 01/02/17 09:45 (Motrin) 600 mg Q8H PRN PO 01/02/17 09:45 (Protonix Inj) 40 mg DAILY IV PUSH 01/02/17 09:45 01/03/17 09:29 (Zofran Inj) 4 mg Q8HR PRN IV PUSH 01/02/17 09:45 01/03/17 14:57 (Roxanne-Colace) 2 tab BID PO 01/02/17 21:00 (Prinivil) 10 mg DAILY PO 01/03/17 09:00 01/03/17 09:26 (Ativan Inj) 2 mg Q10M PRN IV 01/02/17 10:45 01/03/17 16:27 (Norvasc) 10 mg DAILY PO 01/03/17 09:00 01/03/17 09:24 (Catapres) 0.1 mg Q6H PRN PO 01/03/17 15:00 Phenytoin Sodium 100 mg 100 mg Q8H IV 01/03/17 18:00 (Keppra 1000 Mg Inj) 100 ml @ 400 mls/hr Q12HR IV 01/03/17 21:00 Allergies Allergies Coded Allergies No Known Allergies (Unverified01/02/17) Exam I&O / VS Vital Signs Date Time Temp Pulse Resp B/P Pulse Ox O2 Delivery O2 Flow Rate FiO2 01/03/17 16:00 98.1 82 20 157/104 98 01/03/17 12:00 98.7 93 20 129/78 98 01/03/17 08:00 98.1 82 20 136/91 97 01/03/17 04:53 98.7 79 16 157/106 96 01/02/17 23:42 98.8 82 18 179/115 100 01/02/17 19:30 98.8 91 16 165/115 99 Objective Radiology Results Last 48 hours Impressions Brain MRI 01/02/17 0000 Signed Impressions: Service Date/Time: Monday, January 02, 2017 13:03 - CONCLUSION: Unremarkable exam. Jeramy Schuster MD Micro and Labs Laboratory Tests Test 01/03/17 06:14 White Blood Count 12.9 Red Blood Count 4.27 Hemoglobin 13.7 Hematocrit 40.0 Mean Corpuscular Volume 93.8 Mean Corpuscular Hemoglobin 32.1 Mean Corpuscular Hemoglobin 34.2 Concent Red Cell Distribution Width 13.5 Platelet Count 287 Mean Platelet Volume 8.0 Neutrophils (%) (Auto) 80.8 Lymphocytes (%) (Auto) 12.0 Monocytes (%) (Auto) 6.7 Eosinophils (%) (Auto) 0.1 Basophils (%) (Auto) 0.4 Neutrophils # (Auto) 10.4 Lymphocytes # (Auto) 1.5 Monocytes # (Auto) 0.9 Eosinophils # (Auto) 0.0 Basophils # (Auto) 0.0 CBC Comment DIFF FINAL Differential Comment Phenytoin (Dilantin) Level 6.9 Valproic Acid (Depakene) Level 6 Maria G Beltran MD Jan 03, 2017 18:17
--- NOTE | 2017-01-03 22:17 | HHI.PR ---
Addendum to Inpatient Note Addendum Reason: Additional Documentation Additional Information Subjective Responded to call about patient after having seizure at 2119. Per report she had some thrashing of right extremities (upper and lower). Ativan was given at 2124. She then was confused and staring off into space, not really responding to commands. at bedside, states she is typically like this after a seizure. Objective VS: Reviewed and wnl Gen: WDWN obese black female lying in bed drowsy and not verbally responsive but in NAD Resp: Lungs clear anteriorly CV: NRRR, normal S1/S2, no MRG Neuro: Awakens to voice, stares off. Will try to nod or say yes in response to simple questions. Assessment and Plan 31 yo black female with seizure disorder now having repeat seizure while on anti -epileptic medications * Continue neuro checks and VS monitoring * NS @ 125 cc/hr (she had been on clear liquids only; if dehydrated this may have lowered seizure threshold) Fabian Ash Dr., MD R1 Jan 03, 2017 22:17
[2017-01-03] MEDS: SODIUM CHLOR 0.9% 1000 ML INJ 1,000 ML IV SCH (23:15)
[2017-01-03] MEDS: levETIRAcetam 1000 MG INJ 100 ML IV SCH (23:20)
[2017-01-04] VITALS (8 sets, daily range): BP systolic 109–169; BP diastolic 62–107; PULSE 69–100; RESP 17–23; TEMP 96.4–99; O2SAT 96–100
[2017-01-04] MEDS: PHENYTOIN INJ 100 MG/2 ML VIAL IV SCH ×3 (02:00→20:53)
--- NOTE | 2017-01-04 07:29 | HHI.PR ---
Review/Management Daily Summary 01/03 vomiting eeg not epileptiform dilantin level low at 6.9 but no further seizures change to dilantin and keppra iv 01/04 had seizures last night, ativan given seems ok this am, quiet and does not participate much on exam spoke with rn will run dilaantin level and adjust dose keep keppra 1000 bid iv Subjective Active Medications Current Medications Medications (Trade) Dose Ordered Sig/Marla Route Start Time Stop Time Status Last Admin (NS Flush) 2 ml UNSCH PRN IVF 01/02/17 09:45 (NS Flush) 2 ml BID IVF 01/02/17 21:00 01/03/17 23:20 (Tylenol) 650 mg Q4H PRN PO 01/02/17 09:45 (Motrin) 600 mg Q8H PRN PO 01/02/17 09:45 (Protonix Inj) 40 mg DAILY IV PUSH 01/02/17 09:45 01/03/17 09:29 (Zofran Inj) 4 mg Q8HR PRN IV PUSH 01/02/17 09:45 01/03/17 14:57 (Roxanne-Colace) 2 tab BID PO 01/02/17 21:00 01/03/17 21:13 (Prinivil) 10 mg DAILY PO 01/03/17 09:00 01/03/17 09:26 (Ativan Inj) 2 mg Q10M PRN IV 01/02/17 10:45 01/03/17 16:27 (Norvasc) 10 mg DAILY PO 01/03/17 09:00 01/03/17 09:24 (Catapres) 0.1 mg Q6H PRN PO 01/03/17 15:00 Phenytoin Sodium 100 mg 100 mg Q8H IV 01/03/17 18:00 01/04/17 02:00 Levetriacetam 100 ml @ 400 mls/hr Q12HR IV 01/03/17 21:00 01/03/17 23:20 (NS 1000 ml Inj) 1,000 ml @ 125 mls/hr Q8H IV 01/03/17 22:15 01/03/17 23:15 Allergies Allergies Coded Allergies No Known Allergies (Unverified01/02/17) Exam I&O / VS 01/03/17 01/03/17 01/04/17 15:00 23:00 07:00 Intake Total 0 ml 0 ml Balance 0 ml 0 ml Intake Oral 0 ml 0 ml # Voids 2 0 1 # Bowel Movements 0 0 0 Vital Signs Date Time Temp Pulse Resp B/P Pulse Ox O2 Delivery O2 Flow Rate FiO2 01/04/17 04:30 98.9 100 18 138/97 98 01/04/17 00:30 99.0 85 19 142/97 97 01/03/17 21:50 98.1 105 19 138/96 99 01/03/17 21:25 98.1 104 18 130/93 99 01/03/17 20:30 99.3 97 19 170/90 99 01/03/17 16:00 98.1 82 20 157/104 98 01/03/17 12:00 98.7 93 20 129/78 98 01/03/17 08:00 98.1 82 20 136/91 97 Maria G Beltran MD Jan 04, 2017 07:29
[2017-01-04 08:41] LABS: BICARBONATE 22.4 MEQ/L (21.0-32.0); POTASSIUM 3.9 MEQ/L (3.5-5.1)
[2017-01-04] MEDS: PANTOPRAZOLE SODIUM 40 MG VIAL IV PUSH SCH (08:52)
[2017-01-04] MEDS: levETIRAcetam 1000 MG INJ 100 ML IV SCH ×2 (08:52→20:49)
[2017-01-04] MEDS: DOCUSATE SODIUM 50 MG/SENNA 8.6 MG TAB PO SCH ×2 (08:52→20:51)
[2017-01-04] MEDS: LISINOPRIL 10 MG TAB PO SCH (08:53)
[2017-01-04] MEDS: SODIUM CHLORIDE 0.9% FLUSH 5 ML FLUSH IVF SCH ×2 (08:53→20:51)
[2017-01-04] MEDS: SODIUM CHLOR 0.9% 1000 ML INJ 1,000 ML IV SCH ×2 (08:58→20:10)
[2017-01-04 09:17] LABS: AUTOMATED NEUTROPHIL # 9.3 TH/MM3 (1.8-7.7); BASOPHIL # 0.1 TH/MM3 (0-0.2); BASOPHIL % 0.4 % (0.0-2.0); EOSINOPHIL % 0.2 % (0.0-4.0); HEMATOCRIT 38.9 % (35.0-46.0); HEMO FLAGS DIFF FINAL; LYMPH % 15.8 % (9.0-44.0); LYMPHOCYTE # 1.9 TH/MM3 (1.0-4.8); MEAN CELL VOLUME 93.4 FL (80.0-100.0); MEAN CORPUSCULAR HEMOGLOBIN 31.2 PG (27.0-34.0); MEAN CORPUSCULAR HGB CONC 33.3 % (32.0-36.0); MONO % 7.8 % (0.0-8.0); NEUT % 75.8 % (16.0-70.0); PLATELET COUNT 269 TH/MM3 (150-450); RED BLOOD COUNT 4.16 MIL/MM3 (4.00-5.30); RED CELL DISTRIBUTION WIDTH 13.4 % (11.6-17.2); WHITE BLOOD COUNT 12.3 TH/MM3 (4.0-11.0)
[2017-01-04] MEDS ORDERED: BISACODYL 10 MG SUPP RECTAL ONE (10:00)
--- NOTE | 2017-01-04 10:09 | RADRPT ---
EXAM DATE/TIME: 01/04/2017 09:50 [facility] COMPARISON: No previous studies available for comparison. INDICATIONS : Nausea. MEDICAL HISTORY : Gastroesophageal reflux disease. Seizures. Hypertension. SURGICAL HISTORY : section. ENCOUNTER: Initial ACUITY: 4 - 6 days PAIN SCORE: 0/10 LOCATION: Bilateral Abdomen. FINDINGS: 2 AP supine views of the abdomen and pelvis were performed. The abdominal bowel gas pattern is marcela l. No abnormal masses, calcifications, or organomegaly is seen. The osseous structures are unremark able. CONCLUSION: Unremarkable bowel gas pattern. Jeramy Schuster MD on January 04, 2017 at 10:06 Board Certified Radiologist. This report was verified electronically.
--- NOTE | 2017-01-04 12:22 | HHI.FPPN ---
Subjective Remarks Pt seen and examined overnight. Pt did have another seizure episode last night and ativan given. Pt was started on IV fluids and Keppra 1000mg BID IV. Pt drowsy this morning. States she doesn't feel like drinking/eating anything. Says sometimes pills get stuck in her throat when swallowing. No bowel movement since admission. (Zach Wynn MD R1) Objective Vitals Vital Signs Date Time Temp Pulse Resp B/P Pulse Ox O2 Delivery O2 Flow Rate FiO2 01/04/17 08:00 97.6 88 19 169/107 99 01/04/17 04:30 98.9 100 18 138/97 98 01/04/17 00:30 99.0 85 19 142/97 97 01/03/17 21:50 98.1 105 19 138/96 99 01/03/17 21:25 98.1 104 18 130/93 99 01/03/17 20:30 99.3 97 19 170/90 99 01/03/17 16:00 98.1 82 20 157/104 98 I/O 01/03/17 01/03/17 01/03/17 01/04/17 01/04/17 01/04/17 07:00 15:00 23:00 07:00 15:00 23:00 Intake Total 0 ml 0 ml Balance 0 ml 0 ml Intake Oral 0 ml 0 ml # Voids 1 2 0 1 # Bowel Movements 0 0 0 0 (Zach Wynn MD R1) Result Diagram: 01/04/17 0729 01/04/17 0729 Imaging Last Impressions Abdomen X-Ray 01/04/17 0000 Signed Impressions: Service Date/Time: Wednesday, January 04, 2017 09:50 - CONCLUSION: Unremarkable bowel gas pattern. Jeramy Schuster MD Brain MRI 01/02/17 0000 Signed Impressions: Service Date/Time: Monday, January 02, 2017 13:03 - CONCLUSION: Unremarkable exam. Jeramy Schuster MD Objective Remarks GEN: well nourished, alert, conversive EYES: conjunctiva normal, no icterus or injection NECK: acanthosis nigricans LUNGS: clear A-P, respiratory effort is normal. CARDIOVASCULAR: RR without murmur or gallop. No significant edema. GI/ABD: soft without masses, without organomegaly. No bowel sounds present NEURO: Alert, oriented, CN II-XII intact SKIN: color normal, no rashes noted, acanthosis nigricans MUSC: MAEWD. No LE swelling or TTP. PSYCH: judgment/insight intact. Normal speech. (Zach Wynn MD R1) A/P Assessment and Plan 31 yo AA female with known seizure disorder on Keppra who presents with seizure following nausea/vomiting and inability to tolerate PO intake. Discharge Planning Pending clearance by neurology and tolerating PO. Anticipate discharge to home as early as tomorrow. (Zach Wynn MD R1) Attending Attestation Patient seen and examined. Case reviewed and discussed with the resident team. Agree with plan of care as discussed with me and documented in the resident note. (Montserrat Villeda MD) Problem List: (1) Seizure Status: Acute Plan: History of seizures, on Keppra at home, initially presented with several witnessed seizures at home by . Does not currently have a neurologist. Currently well controlled without recurrence since admission. -Neurology following, Dr. Beltran-- thank you for recs -Continue Keppra 1000mg IV q12H -Ativan PRN seizures -Seizure precautions -Neuro checks q4H (2) Nausea & vomiting Status: Acute Plan: Hx of gastritis, could also be due to viral gastroenteritis. No bowel sounds on exam this morning. No bowel movement since admission. KUB negative for obstruction -Duloclax suppository x1 -Zofran PRN nausea -Protonix 40mg IV daily -Supportive care -ADAT (3) HTN (hypertension) Status: Acute Plan: Stable. 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
[2017-01-04] MEDS ORDERED: PHENYTOIN INJ 100 MG/2 ML VIAL IV ONE (14:00)
[2017-01-04] MEDS ORDERED: PHENYTOIN INJ 500 MG in SODIUM CHLORIDE 0.9% INJ 100 ML IV ONE (15:00)
[2017-01-05 00:30] VITALS: BP 118/67; PULSE 66; RESP 18; TEMP 97.9; O2SAT 99
[2017-01-05 01:28] VITALS: O2SAT 98
[2017-01-05 04:45] VITALS: BP 120/68; PULSE 67; RESP 19; TEMP 97.7; O2SAT 100
[2017-01-05] MEDS: SODIUM CHLOR 0.9% 1000 ML INJ 1,000 ML IV SCH (06:15)
[2017-01-05 07:05] LABS: BICARBONATE 22.4 MEQ/L (21.0-32.0); POTASSIUM 3.8 MEQ/L (3.5-5.1)
[2017-01-05 07:24] LABS: AUTOMATED NEUTROPHIL # 6.4 TH/MM3 (1.8-7.7); BASOPHIL % 0.5 % (0.0-2.0); EOSINOPHIL # 0.1 TH/MM3 (0-0.4); EOSINOPHIL % 0.7 % (0.0-4.0); HEMATOCRIT 33.3 % (35.0-46.0); HEMO FLAGS DIFF FINAL; LYMPH % 24.9 % (9.0-44.0); LYMPHOCYTE # 2.4 TH/MM3 (1.0-4.8); MEAN CELL VOLUME 94.4 FL (80.0-100.0); MEAN CORPUSCULAR HEMOGLOBIN 32.2 PG (27.0-34.0); MEAN CORPUSCULAR HGB CONC 34.1 % (32.0-36.0); MONO % 6.5 % (0.0-8.0); NEUT % 67.4 % (16.0-70.0); PLATELET COUNT 235 TH/MM3 (150-450); RED BLOOD COUNT 3.53 MIL/MM3 (4.00-5.30); RED CELL DISTRIBUTION WIDTH 13.4 % (11.6-17.2); WHITE BLOOD COUNT 9.5 TH/MM3 (4.0-11.0)
[2017-01-05 08:00] VITALS: BP 125/88; PULSE 74; RESP 16; TEMP 97.2; O2SAT 100
[2017-01-05] MEDS: DOCUSATE SODIUM 50 MG/SENNA 8.6 MG TAB PO SCH (08:17)
[2017-01-05] MEDS: LISINOPRIL 10 MG TAB PO SCH (08:17)
[2017-01-05] MEDS: levETIRAcetam 1000 MG INJ 100 ML IV SCH (08:17)
[2017-01-05] MEDS: PANTOPRAZOLE SODIUM 40 MG VIAL IV PUSH SCH (08:18)
[2017-01-05] MEDS: PHENYTOIN INJ 100 MG/2 ML VIAL IV SCH (08:18)
[2017-01-05] MEDS: SODIUM CHLORIDE 0.9% FLUSH 5 ML FLUSH IVF SCH (08:20)
[2017-01-05 09:01] VITALS: O2SAT 98
--- NOTE | 2017-01-05 09:07 | HHI.FPPN ---
Subjective Remarks Patient seen and examined this morning. Afebrile vital signs stable. No seizures overnight. Patient reports that she is hungry and would like to try regular diet today. She denies any feelings of nausea or vomiting. Her main question is will she need to antiseizure medications when she goes home, informed her that is likely. She understands the plan is to await further neurology recommendations. Endorses: None Denies: Fever, chills, nausea, vomiting, shortness of breath, chest pain, headache, abdominal pain, calf pain Objective Vitals Vital Signs Date Time Temp Pulse Resp B/P Pulse Ox O2 Delivery O2 Flow Rate FiO2 01/05/17 04:45 97.7 67 19 120/68 100 01/05/17 01:28 98 01/05/17 00:30 97.9 66 18 118/67 99 01/04/17 20:45 97.7 69 17 117/69 99 01/04/17 18:26 82 01/04/17 16:00 96.4 75 22 109/62 100 01/04/17 12:20 97 Nasal Cannula 21 01/04/17 12:00 96.8 88 23 131/70 96 I/O 01/04/17 01/04/17 01/04/17 01/05/17 01/05/17 01/05/17 07:00 15:00 23:00 07:00 15:00 23:00 Intake Total 0 ml 800 ml 975 ml Balance 0 ml 800 ml 975 ml Intake Oral 0 ml 800 ml 975 ml # Voids 1 2 2 4 # Bowel Movements 0 0 3 1 Result Diagram: 01/05/17 0532 01/05/17 0532 Imaging Last Impressions Abdomen X-Ray 01/04/17 0000 Signed Impressions: Service Date/Time: Wednesday, January 04, 2017 09:50 - CONCLUSION: Unremarkable bowel gas pattern. Jeramy Schuster MD Brain MRI 01/02/17 0000 Signed Impressions: Service Date/Time: Monday, January 02, 2017 13:03 - CONCLUSION: Unremarkable exam. Jeramy Schuster MD Objective Remarks GEN: well nourished, alert, conversive EYES: conjunctiva normal, no icterus or injection NECK: acanthosis nigricans LUNGS: clear A-P, respiratory effort is normal. CARDIOVASCULAR: RR without murmur or gallop. No significant edema. GI/ABD: soft without masses, without organomegaly. No bowel sounds present NEURO: Alert, oriented, CN II-XII intact SKIN: color normal, no rashes noted, acanthosis nigricans MUSC: MAEWD. No LE swelling or TTP. PSYCH: judgment/insight intact. Normal speech. Medications and IVs Current Medications Medications (Trade) Dose Ordered Sig/Marla Route Start Time Stop Time Status Last Admin (NS Flush) 2 ml UNSCH PRN IVF 01/02/17 09:45 (NS Flush) 2 ml BID IVF 01/02/17 21:00 01/04/17 20:51 (Tylenol) 650 mg Q4H PRN PO 01/02/17 09:45 (Motrin) 600 mg Q8H PRN PO 01/02/17 09:45 (Protonix Inj) 40 mg DAILY IV PUSH 01/02/17 09:45 01/05/17 08:18 (Zofran Inj) 4 mg Q8HR PRN IV PUSH 01/02/17 09:45 01/03/17 14:57 (Roxanne-Colace) 2 tab BID PO 01/02/17 21:00 01/04/17 08:52 (Prinivil) 10 mg DAILY PO 01/03/17 09:00 01/05/17 08:17 (Ativan Inj) 2 mg Q10M PRN IV 01/02/17 10:45 01/03/17 16:27 (Norvasc) 10 mg DAILY PO 01/03/17 09:00 01/05/17 08:17 Clonidine 0.1 mg 0.1 mg Q6H PRN PO 01/03/17 15:00 01/04/17 10:16 Levetriacetam 100 ml @ 400 mls/hr Q12HR IV 01/03/17 21:00 01/05/17 08:17 (NS 1000 ml Inj) 1,000 ml @ 125 mls/hr Q8H IV 01/03/17 22:15 01/05/17 06:15 (Dilantin Inj) 200 mg Q12HR IV 01/04/17 21:00 01/05/17 08:18 A/P Assessment and Plan 31 yo AA female with known seizure disorder on Keppra who presents with seizure following nausea/vomiting and inability to tolerate PO intake. Discharge Planning Patient is cleared from medicine standpoint for discharge home today. Will follow-up as an outpatient with neurology. Problem List: (1) Seizure Status: Acute Plan: History of seizures, on Keppra at home, initially presented with several witnessed seizures at home by . Does not currently have a neurologist. Currently well controlled without recurrence since admission. -Neurology following, Dr. Beltran-- thank you for recs -Continue Keppra 1000mg IV q12H, will convert to PO for DC -Continue Dilantin 200 mg IV every 12 hours, will convert to PO for DC -Seizure precautions -Neuro checks q4H (2) Nausea & vomiting Status: Acute Plan: Hx of gastritis, could also be due to viral gastroenteritis. No bowel sounds on exam this morning. No bowel movement since admission. KUB negative for obstruction -Duloclax suppository x1 -Zofran PRN nausea -Protonix 40mg IV daily -Supportive care (3) HTN (hypertension) Status: Acute Plan: Stable. 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
--- NOTE | 2017-01-05 10:36 | HHI.DCPOC ---
Discharge Care Plan Diagnosis: (1) Seizure (2) Hypokalemia (3) Dehydration (4) HTN (hypertension) (5) Nausea & vomiting Goals to Promote Your Health * To prevent worsening of your condition and complications * To maintain your health at the optimal level Taking antiseizure medication as prescribed Follow-up with neurologist, and PCP Directions to Meet Your Goals Take your medications as prescribed Follow your dietary instruction Follow activity as directed Keep your appointments as scheduled Take your immunizations and boosters as scheduled If your symptoms worsen call your PCP, if no PCP go to Urgent Care Center or Emergency Room Smoking is Dangerous to Your Health. Avoid second hand smoke Call the 24-hour hour crisis hotline for domestic abuse at Rufino Doss MD R2 Jan 05, 2017 10:36
[2017-01-05] MEDS ORDERED: KEPP10002 PO (11:08)
[2017-01-05] MEDS ORDERED: SENN1TAB PO (11:08)
[2017-01-05] MEDS ORDERED: DILA100C PO (11:08)
--- NOTE | 2017-01-05 17:28 | HHI.DS ---
Discharge Summary Admission Date Jan 02, 2017 at 09:31 Discharge Date: Jan 05, 2017 Admitting Diagnosis multiple seizures (1) Seizure Diagnosis: Principal Plan: History of seizures, on Keppra at home, initially presented with several witnessed seizures at home by . Does not currently have a neurologist. Currently well controlled without recurrence since admission. -Neurology following, Dr. Beltran-- thank you for recs -Continue Keppra 1000mg IV q12H, will convert to PO for DC -Continue Dilantin 200 mg IV every 12 hours, will convert to PO for DC -Seizure precautions -Neuro checks q4H (2) Nausea & vomiting Diagnosis: Principal Plan: Hx of gastritis, could also be due to viral gastroenteritis. No bowel sounds on exam this morning. No bowel movement since admission. KUB negative for obstruction -Duloclax suppository x1 -Zofran PRN nausea -Protonix 40mg IV daily -Supportive care (3) HTN (hypertension) Diagnosis: Secondary Plan: Stable. Per spouse, on several blood pressure meds, but only lisinopril listed on EMR -Continue HAND SPRAYER lisinopril 10mg daily -Amlodipine 10mg daily -Clonidine 0.1mg q6hrs prn BP >160/90 (4) FEN Diagnosis: Secondary Plan: Patient will start a regular diet today monitor for nausea and vomiting Fluids: Hep lock IV, monitor for good oral intake Consultants Neurology Brief History 31 y/o -[place] female with history of HTN and seizures, presents with multiple seizures at home. History obtained from , who was presents. Pt in post-ictal state. States she was in bathtub this morning and had several seizures. Per spouse, was shaking uncontrollably, foaming at mouth, and was biting on tongue. No loss of bowel/bladder function. Is on Keppra at home. Has history of gastritis and for the last 7 days, has been unable to keep any food down or her medications. She was seen in ED 2 days ago for seizures as well. Has no neurologist, due to no insurance. Has no PCP. Per , states pt has had seizures for at least 8 years, unsure of when she started having them. CBC/BMP: 01/05/17 0532 01/05/17 0532 Significant Findings Laboratory Tests Test 01/03/17 01/04/17 01/05/17 06:14 07:29 05:32 White Blood Count 12.9 TH/MM3 12.3 TH/MM3 (4.0-11.0) (4.0-11.0) Neutrophils (%) (Auto) 80.8 % 75.8 % (16.0-70.0) (16.0-70.0) Neutrophils # (Auto) 10.4 TH/MM3 9.3 TH/MM3 (1.8-7.7) (1.8-7.7) Phenytoin (Dilantin) Level 6.9 MCG/ML 7.3 MCG/ML (10.0-20.0) (10.0-20.0) Valproic Acid (Depakene) Level 6 MCG/ML (50-100) Monocytes # (Auto) 1.0 TH/MM3 (0-0.9) Calcium Level 8.4 MG/DL 8.2 MG/DL (8.5-10.1) (8.5-10.1) Red Blood Count 3.53 MIL/MM3 (4.00-5.30) Hemoglobin 11.4 GM/DL (11.6-15.3) Hematocrit 33.3 % (35.0-46.0) Chloride Level 109 MEQ/L (98-107) Random Glucose 72 MG/DL (74-106) Imaging Last Impressions Abdomen X-Ray 01/04/17 0000 Signed Impressions: Service Date/Time: Wednesday, January 04, 2017 09:50 - CONCLUSION: Unremarkable bowel gas pattern. Jeramy Schuster MD Brain MRI 01/02/17 0000 Signed Impressions: Service Date/Time: Monday, January 02, 2017 13:03 - CONCLUSION: Unremarkable exam. Jeramy Schuster MD PE at Discharge GEN: well nourished, alert, conversive EYES: conjunctiva normal, no icterus or injection NECK: acanthosis nigricans LUNGS: clear A-P, respiratory effort is normal. CARDIOVASCULAR: RR without murmur or gallop. No significant edema. GI/ABD: soft without masses, without organomegaly. No bowel sounds present NEURO: Alert, oriented, CN II-XII intact SKIN: color normal, no rashes noted, acanthosis nigricans MUSC: MAEWD. No LE swelling or TTP. PSYCH: judgment/insight intact. Normal speech. Hospital Course 31 y/o female with history of gastritis, HTN and seizures presents with recurrent seizures. Pt had nausea and vomiting for a week and was unable to keep her anti-seizure medications down. Pt was started on IV keppra and dilantin and then transitioned to oral medication. Neurology was consulted and EEG was performed, which did not show any epileptiform activity. Patient slowly progressed diet and had another seizure episode and was switched back to IV keppra. Pt was then able to tolerate PO medication and restarted on keppra and dilantin. She was discharged in stable condition with follow-up with neurology. Pt Condition on Discharge: Stable Discharge Disposition: Discharge Home Discharge Instructions DIET: Follow Instructions for: As Tolerated, No Restrictions Activities you can perform: Regular-No Restrictions Follow up Referrals: Neurology - 1 Week with Maria G Beltran MD Physician - 1 Week with pcp New Medications: Levetiracetam (Keppra) 1,000 Mg Tab 1000 MG PO BID Control Seizures #60 Ref 0 TAB Phenytoin Extended (Dilantin) 100 Mg Cap 200 MG PO BID Control Seizures #120 Ref 0 CAP Sennosides-Docusate Sodium (Senna Plus 8.6-50 mg) 1 Tab Tab 2 TAB PO BID #15 TAB Continued Medications: Lisinopril (Lisinopril) 10 Mg Tab 10 MG PO DAILY #30 Ref 0 TAB Ondansetron Odt (Zofran Odt) 4 Mg Tab 4 MG SL Q6HR PRN Nausea/Vomiting #30 Ref 0 TAB Discontinued Medications: Levetiracetam (Keppra) 500 Mg Tab 500 MG PO QID Control Seizures #60 Ref 0 TAB Zach Wynn MD R1 Jan 05, 2017 17:28
[2017-01-11] MEDS ORDERED: AMLO10TA2 PO ×2 (14:53→15:09)
[2017-01-11] MEDS ORDERED: CARV3.12 PO ×2 (14:53→15:09)
[2017-01-11] MEDS ORDERED: LISI40TA PO ×2 (14:53→15:09)
[2017-01-11] MEDS ORDERED: DILA100C PO (15:09)
[2017-01-11] MEDS ORDERED: KEPP10002 PO (15:09)
[2017-01-11] MEDS ORDERED: ZOFR4TAB3 SL (15:09)
== END 2017-01-05 13:46 | disposition home or self-care (01) | DRG 101 ==
LOC: NEPC 06:59 → NEDA 09:31 → N05B 15:49
PROVIDERS: ADMIT Family Medicine; ATTEND Family Medicine
DX: G40.901 Epilepsy, unspecified, not intractable, with status epilepticus (principal); I10 Essential (primary) hypertension; K21.9 Gastro-esophageal reflux disease without esophagitis; A08.4 Viral intestinal infection, unspecified; K29.70 Gastritis, unspecified, without bleeding; Z87.891 Personal history of nicotine dependence
CPT/HCPCS: 70553; 74000; 80048; 80053; 80164; 80185; 80320; 85025; 93005; 94150; 95819; 96374; A9579; C9113; J0360; J1165; J1953; J2060; J2405; J7030

== ENCOUNTER 2017-03-05 20:29 | Inpatient (IN) | payer OTHER ==
[~2017-03-05] VITALS: Ht 165.1 cm; Wt 100.0 kg
[~2017-03-05 20:29] MED LIST changes: +AMLO10TA2 PO; +CARV3.12 PO; +DILA100C PO; +KEPP10002 PO; -LEVE500 PO; -LISI10TA3 PO; +LISI40TA PO; +SENN1TAB PO
[2017-03-05 20:34] VITALS: PULSE 71; RESP 23; TEMP 98.9; O2SAT 100
[2017-03-05 20:37] VITALS: PULSE 83; RESP 20; TEMP 98.9; O2SAT 100
--- NOTE | 2017-03-05 20:40 | PD ---
HPI Chief Complaint: seizure Time Seen by Provider: 20:31 Travel History International Travel<30 days: No Contact w/Intl Traveler<30days: No Traveled to known affect area: No History of Present Illness HPI 31-year-old female was brought by EMS for seizure. Patient was reportedly having multiple seizure episodes at home today. Patient has history of seizure. Patient was given Ativan 2 mg IV per EMS. Patient was brought into ED for evaluation. Patient postictal state. Patient's Unable to provide information. Patient has intermittent vomiting episodes on the way to the ED. In reviewing the old record, patient was on Keppra 1000 mg twice a day and Dilantin 200 mg twice a day. Patient woke up later on and states that she has not been taking her Keppra and Dilantin for the past 3 days because of nausea vomiting. PFSH Past Medical History Heart Rhythm Problems: Yes Cancer: No Cardiovascular Problems: Yes Diminished Hearing: No Endocrine: No Gastrointestinal Disorders: Yes (GASTRITIS) GERD: Yes Genitourinary: No Hypertension: Yes Immune Disorder: No Musculoskeletal: No Neurologic: Yes Psychiatric: No Reproductive: No Respiratory: No Seizures: Yes Menopausal: No : 2 Para: 1 Miscarriage: 1 Past Surgical History Section: Yes Gynecologic Surgery: Yes ( X1) Other Surgery: Yes (STOMACH BIOPSY) Social History Alcohol Use: No Tobacco Use: No (QUIT SMOKING 2 WEEKS) Substance Use: Yes (marijuaina - quit 3-4 weeks ago) Allergies-Medications (Allergen,Severity, Reaction): Coded Allergies: No Known Allergies (Unverified , 01/11/17) Reported Meds & Prescriptions Reported Meds & Active Scripts Active Carvedilol 3.125 Mg Tab 3.125 Mg PO BID Lisinopril 40 Mg Tab 40 Mg PO DAILY Amlodipine (Amlodipine Besylate) 10 Mg Tab 10 Mg PO DAILY Dilantin (Phenytoin Extended) 100 Mg Cap 200 Mg PO BID Keppra (Levetiracetam) 1,000 Mg Tab 1,000 Mg PO BID Zofran Odt (Ondansetron Odt) 4 Mg Tab 4 Mg SL Q6HR PRN Senna Plus 8.6-50 mg (Sennosides-Docusate Sodium) 1 Tab Tab 2 Tab PO BID Review of Systems ROS Limitations: Altered Mental Status General / Constitutional: No: Fever Eyes: No: Visual changes HENT: No: Headaches Cardiovascular: No: Chest Pain or Discomfort Respiratory: No: Shortness of Breath Gastrointestinal: Positive: Vomiting, No: Abdominal Pain Genitourinary: No: Dysuria Musculoskeletal: No: Pain Skin: No Rash Neurologic: No: Weakness Psychiatric: No: Depression Endocrine: No: Polydipsia Hematologic/Lymphatic: No: Easy Bruising Physical Exam Narrative GENERAL: Well-nourished, well-developed patient. SKIN: Focused skin assessment warm/dry. HEAD: Normocephalic. EYES: No scleral icterus. No injection or drainage. Pupils 3 mm equal reactive. NECK: Supple, trachea midline. No JVD or lymphadenopathy. CARDIOVASCULAR: Regular rate and rhythm without murmurs, gallops, or rubs. RESPIRATORY: Breath sounds equal bilaterally. No accessory muscle use. GASTROINTESTINAL: Abdomen soft, non-tender, nondistended. MUSCULOSKELETAL: No cyanosis, or edema. BACK: Nontender without obvious deformity. No CVA tenderness. Neurologic exam: Patient is in postictal state. Data Data Last Documented VS Vital Signs Date Time Temp Pulse Resp B/P Pulse Ox O2 Delivery O2 Flow Rate FiO2 03/05/17 20:53 80 20 194/117 100 Room Air 03/05/17 20:37 98.9 Orders Complete Blood Count With Diff (03/05/17 20:32) Comprehensive Metabolic Panel (03/05/17 20:32) Prothrombin Time / Inr (Pt) (03/05/17 20:32) Act Partial Throm Time (Ptt) (03/05/17 20:32) Magnesium (Mg) (03/05/17 20:32) Phenytoin (Dilantin) (03/05/17 20:32) Thyroid Stimulating Hormone (03/05/17 20:32) Phosphorus (Po4) (03/05/17 20:32) Iv Access Insert/Monitor (03/05/17 20:32) Ecg Monitoring (03/05/17 20:32) Oximetry (03/05/17 20:32) Ondansetron Inj (Zofran Inj) (03/05/17 20:45) Hydralazine Inj (Apresoline Inj) (03/05/17 20:59) Lorazepam Inj (Ativan Inj) (03/05/17 21:30) Levetiracetam Inj (Keppra Inj) (03/05/17 21:30) Hydralazine Inj (Apresoline Inj) (03/05/17 21:45) Fosphenytoin Inj (Cerebyx Inj) (03/05/17 22:45) Hydralazine Inj (Apresoline Inj) (03/05/17 22:45) Labs Laboratory Tests Test 03/05/17 20:45 White Blood Count 7.9 TH/MM3 Red Blood Count 4.02 MIL/MM3 Hemoglobin 13.0 GM/DL Hematocrit 37.9 % Mean Corpuscular Volume 94.2 FL Mean Corpuscular Hemoglobin 32.2 PG Mean Corpuscular Hemoglobin 34.2 % Concent Red Cell Distribution Width 14.3 % Platelet Count 234 TH/MM3 Mean Platelet Volume 7.7 FL Neutrophils (%) (Auto) 78.4 % Lymphocytes (%) (Auto) 15.8 % Monocytes (%) (Auto) 4.7 % Eosinophils (%) (Auto) 0.5 % Basophils (%) (Auto) 0.6 % Neutrophils # (Auto) 6.2 TH/MM3 Lymphocytes # (Auto) 1.3 TH/MM3 Monocytes # (Auto) 0.4 TH/MM3 Eosinophils # (Auto) 0.0 TH/MM3 Basophils # (Auto) 0.0 TH/MM3 CBC Comment DIFF FINAL Differential Comment Prothrombin Time 11.3 SEC Prothromb Time International 1.0 RATIO Ratio Activated Partial 21.1 SEC Thromboplast Time Sodium Level 144 MEQ/L Potassium Level 5.3 MEQ/L Chloride Level 109 MEQ/L Carbon Dioxide Level 25.8 MEQ/L Anion Gap 9 MEQ/L Blood Urea Nitrogen 7 MG/DL Creatinine 0.86 MG/DL Estimat Glomerular Filtration 92 ML/MIN Rate Random Glucose 113 MG/DL Calcium Level 8.5 MG/DL Phosphorus Level 3.2 MG/DL Magnesium Level 2.1 MG/DL Total Bilirubin 0.3 MG/DL Aspartate Amino Transf 32 U/L (AST/SGOT) Alanine Aminotransferase 49 U/L (ALT/SGPT) Alkaline Phosphatase 73 U/L Total Protein 7.4 GM/DL Albumin 3.7 GM/DL Thyroid Stimulating Hormone 2.650 uIU/ML 3rd Gen Phenytoin (Dilantin) Level 0.8 MCG/ML MDM Medical Decision Making Medical Screen Exam Complete: Yes Emergency Medical Condition: Yes Medical Record Reviewed: Yes Interpretation(s) 22:15 PM. CBC within normal limit. Potassium 5.3. Phenytoin 0.8 Differential Diagnosis Differential diagnosis including breakthrough seizures, electrolyte abnormality , subtherapeutic level of medication. Narrative Course 31-year-old female was brought in by EMS for seizure. History of seizure. Past medical records shows patient was on Dilantin and Keppra. Patient has been noncompliant with medications for the past 3 days. Patient started having seizure in the ED. Ativan to make them IV given. Zofran 4 mg IV given. Normal saline solution 1 25 cc an hour. Cerebyx 500 MG PE given. Keppra 500 mg IV given. Blood pressure elevated. Apresoline 10 mg IV given. Repeated Apresoline 10 mg IV. Diagnosis Primary Impression: Seizure Additional Impressions: Uncontrolled hypertension Noncompliance Admitting Information Admitting Physician Requests: Observation Rl Martins MD Mar 05, 2017 20:40
[2017-03-05] MEDS ORDERED: ONDANSETRON HCL 4 MG/2 ML VIAL IV PUSH ONE (20:45)
[2017-03-05 20:53] VITALS: BP 194/117; PULSE 80; RESP 20; O2SAT 100
[2017-03-05] MEDS ORDERED: hydrALAZINE HCL 20 MG/ML VIAL ONE (20:59)
[2017-03-05 21:10] LABS: AUTOMATED NEUTROPHIL # 6.2 TH/MM3 (1.8-7.7); BASOPHIL % 0.6 % (0.0-2.0); EOSINOPHIL % 0.5 % (0.0-4.0); HEMATOCRIT 37.9 % (35.0-46.0); HEMO FLAGS DIFF FINAL; LYMPH % 15.8 % (9.0-44.0); LYMPHOCYTE # 1.3 TH/MM3 (1.0-4.8); MEAN CELL VOLUME 94.2 FL (80.0-100.0); MEAN CORPUSCULAR HEMOGLOBIN 32.2 PG (27.0-34.0); MEAN CORPUSCULAR HGB CONC 34.2 % (32.0-36.0); MONO % 4.7 % (0.0-8.0); NEUT % 78.4 % (16.0-70.0); PLATELET COUNT 234 TH/MM3 (150-450); RED BLOOD COUNT 4.02 MIL/MM3 (4.00-5.30); RED CELL DISTRIBUTION WIDTH 14.3 % (11.6-17.2); WHITE BLOOD COUNT 7.9 TH/MM3 (4.0-11.0)
[2017-03-05 21:24] LABS: ANION GAP 9 MEQ/L (5-15); AST (GOT) 32 U/L (15-37); BICARBONATE 25.8 MEQ/L (21.0-32.0); BLOOD UREA NITROGEN 7 MG/DL (7-18); CHLORIDE 109 MEQ/L (98-107); GLOMERULAR FILTRATION RATE 92 ML/MIN (>89); MAGNESIUM 2.1 MG/DL (1.5-2.5); POTASSIUM 5.3 MEQ/L (3.5-5.1); SODIUM (NA) 144 MEQ/L (136-145)
[2017-03-05] MEDS ORDERED: LORazepam 2 MG/ML VIAL IV PUSH ONE (21:30)
[2017-03-05] MEDS ORDERED: FOSPHENYTOIN SODIUM 500 MG PE/10 ML VIAL IV ONE (21:30)
[2017-03-05] MEDS ORDERED: levETIRAcetam INJ 500 MG in SODIUM CHLORIDE 0.9% INJ 100 ML IV ONE (21:30)
[2017-03-05 21:33] LABS: ALKALINE PHOSPHATASE 73 U/L (45-117); ALT (GPT) 49 U/L (10-53); TOTAL BILIRUBIN ADULT 0.3 MG/DL (0.2-1.0)
[2017-03-05 21:34] LABS: APTT (PATIENT) 21.1 SEC (24.3-30.1); PROTHROMBIN TIME - PATIENT 11.3 SEC (9.8-11.6)
[2017-03-05] MEDS ORDERED: hydrALAZINE HCL 20 MG/ML VIAL IV PUSH ONE ×2 (21:45→22:45)
[2017-03-05] MEDS ORDERED: FOSPHENYTOIN INJ 500 MGPE in SODIUM CHLORIDE 0.9% INJ 50 ML IV ONE (22:45)
[2017-03-05] MEDS ORDERED: SODIUM CHLORIDE 0.9% FLUSH 10 ML FLUSH IV FLUSH PRN (23:00)
[2017-03-05] MEDS ORDERED: NALOXONE HCL 0.4 MG/ML AMP IV PRN (23:00)
[2017-03-06] VITALS (12 sets, daily range): BP systolic 101–173; BP diastolic 63–114; PULSE 80–99; RESP 18–20; TEMP 97.9–98.4; O2SAT 98–100
[2017-03-06 04:46] LABS: BASOPHIL % 0.3 % (0.0-2.0); HEMATOCRIT 38.7 % (35.0-46.0); HEMO FLAGS DIFF FINAL; LYMPH % 6.3 % (9.0-44.0); MEAN CELL VOLUME 94.2 FL (80.0-100.0); MEAN CORPUSCULAR HEMOGLOBIN 31.5 PG (27.0-34.0); MEAN CORPUSCULAR HGB CONC 33.4 % (32.0-36.0); MONO % 4.6 % (0.0-8.0); NEUT % 88.8 % (16.0-70.0); PLATELET COUNT 287 TH/MM3 (150-450); RED BLOOD COUNT 4.11 MIL/MM3 (4.00-5.30); RED CELL DISTRIBUTION WIDTH 14.3 % (11.6-17.2); WHITE BLOOD COUNT 15.7 TH/MM3 (4.0-11.0)
[2017-03-06] MEDS ORDERED: LORazepam 2 MG/ML VIAL IV PUSH PRN (05:00)
[2017-03-06] MEDS ORDERED: LORazepam 2 MG/ML VIAL IV PUSH ONE (05:00)
[2017-03-06] MEDS ORDERED: hydrALAZINE HCL 20 MG/ML VIAL IV PUSH ONE (05:00)
[2017-03-06 05:07] LABS: POTASSIUM 3.8 MEQ/L (3.5-5.1)
[2017-03-06] MEDS ORDERED: PHENYTOIN INJ 100 MG/2 ML VIAL IV SCH (06:00)
--- NOTE | 2017-03-06 07:38 | HHI.HP ---
[facility] No Primary Care Physician Admission Diagnosis seizure. Uncontrolled hypertension. Noncompliance. Diagnoses: Travel History International Travel<30 Days: No Contact w/Intl Traveler <30 Da: No Traveled to Known Affected Are: No History of Present Illness History of patient, her at the bedside, ER physician to medication, and review of medical records. Patient is somewhat postictal and not able to give proper history. She however would answer yes or no questions. Her at the bedside provided most of the history. Family reported that patient was having multiple episodes of seizures at home. She stated that patient has been off her medications for the past few days. Patient is going to school and was busy with her life and did not like her seizure medications because it really keep her drowsy and sleepy and she was not able to study well. She is also having nausea and vomiting for the past few days. Reports that she did have diarrhea as well. Reports each of them were about 6 times a day. However stated that these were normal whenever the patient has episodes of gastritis. However she likely meant gastroparesis. She takes Zofran sublingual at home. reported that whenever she has these episodes, she usually would have breakthrough seizures as well. However denies fever. Denies any recent chest pain/palpitations/urinary burning/pain on urination. Denies any syncope. Denies any blood in stool or urine. Denies any blood in her emesis as well. The emesis was at the bedside and was pretty clear bilious color. confirms that patient is no longer driving. In the emergency room, patient had 1 episode of witnessed seizure. She was then loaded with Dilantin 500 mg IV and Keppra 500 mg IV in ER. Upon her arrival to medical floors, patient then had another episode of witnessed seizure. She was given Ativan 2 mg IV at that time. Review of Systems Except as stated in HPI: all other systems reviewed are Neg Most of the review of system was given by at the bedside. Patient is only answering yes or no whenever she wakes up. Mostly from Ativan versus postictal state. Past Family Social History Past Medical History Hypertension Seizure disorder Gastritis versus gastroparesis Past Surgical History Reported Medications Medications list on EMRreviewed. This was not updated yet. Allergies: Coded Allergies: No Known Allergies (Unverified , 01/11/17) Family History Reports family history of breast cancer in the mother and colon cancer in the father. Father is also diabetic. Social History Denies smoking/alcohol abuse/drug abuse. Occasional marijuana use. Denies K2. Physical Exam Vital Signs Vital Signs Date Time Temp Pulse Resp B/P Pulse Ox O2 Delivery O2 Flow Rate FiO2 03/06/17 06:00 92 18 160/76 100 03/06/17 05:05 90 18 160/83 100 03/06/17 04:20 98.2 86 18 173/114 100 03/06/17 00:07 98.4 89 20 163/80 100 03/05/17 20:53 80 20 194/117 100 Room Air 03/05/17 20:37 100 Room Air 03/05/17 20:37 98.9 83 20 100 Room Air 03/05/17 20:34 98.9 71 23 100 Physical Exam GENERAL: This is a well-nourished, well-developed patient, in no apparent distress. Somewhat sleepy. Not fully participate in the interview. SKIN: No rashes, ecchymoses or lesions. Cool and dry. HEAD: Atraumatic. Normocephalic. No temporal or scalp tenderness. EYES: No scleral icterus. No injection or drainage. ENT: Nose without bleeding, purulent drainage or septal hematoma Airway patent. NECK: Trachea midline. No JVDSupple, nontender, no meningeal signs. CARDIOVASCULAR: Regular rate and rhythm without murmurs, gallops, or rubs. RESPIRATORY: Clear to auscultation. Breath sounds equal bilaterally. No wheezes , rales, or rhonchi. GASTROINTESTINAL: Abdomen soft, non-tender, nondistended. No guarding. MUSCULOSKELETAL: Extremities without clubbing, cyanosis, or edema. No calf tenderness. NEUROLOGICAL: Mostly sleepy. Not communicative verbally. Moving all 4 extremities. No gross deficits. Laboratory Laboratory Tests Test 03/05/17 03/06/17 20:45 04:26 White Blood Count 7.9 15.7 Red Blood Count 4.02 4.11 Hemoglobin 13.0 12.9 Hematocrit 37.9 38.7 Mean Corpuscular Volume 94.2 94.2 Mean Corpuscular Hemoglobin 32.2 31.5 Mean Corpuscular Hemoglobin 34.2 33.4 Concent Red Cell Distribution Width 14.3 14.3 Platelet Count 234 287 Mean Platelet Volume 7.7 7.3 Neutrophils (%) (Auto) 78.4 88.8 Lymphocytes (%) (Auto) 15.8 6.3 Monocytes (%) (Auto) 4.7 4.6 Eosinophils (%) (Auto) 0.5 0.0 Basophils (%) (Auto) 0.6 0.3 Neutrophils # (Auto) 6.2 14.0 Lymphocytes # (Auto) 1.3 1.0 Monocytes # (Auto) 0.4 0.7 Eosinophils # (Auto) 0.0 0.0 Basophils # (Auto) 0.0 0.0 CBC Comment DIFF FINAL DIFF FINAL Differential Comment Prothrombin Time 11.3 Prothromb Time International 1.0 Ratio Activated Partial 21.1 Thromboplast Time Sodium Level 144 140 Potassium Level 5.3 3.8 Chloride Level 109 108 Carbon Dioxide Level 25.8 22.0 Anion Gap 9 10 Blood Urea Nitrogen 7 6 Creatinine 0.86 0.75 Estimat Glomerular Filtration 92 108 Rate Random Glucose 113 130 Calcium Level 8.5 9.0 Phosphorus Level 3.2 Magnesium Level 2.1 Total Bilirubin 0.3 Aspartate Amino Transf 32 (AST/SGOT) Alanine Aminotransferase 49 (ALT/SGPT) Alkaline Phosphatase 73 Total Protein 7.4 Albumin 3.7 Thyroid Stimulating Hormone 2.650 3rd Gen Phenytoin (Dilantin) Level 0.8 Result Diagram: 03/06/1742503/06/17425 Assessment and Plan Problem List: (1) Seizure ICD Code: R56.9 Status: Acute (2) Uncontrolled hypertension ICD Code: I10 Status: Acute (3) Noncompliance ICD Code: Z91.19 Status: Acute (4) Nausea & vomiting ICD Code: R11.2 Status: Acute Assessment and Plan Impression: Breakthrough seizures Nausea/vomiting/possible gastroparesis. However was complaining of diarrhea. will need to rule out colitis/enteritis Subtherapeutic Dilantin Medications noncompliance Uncontrolled hypertensionalso due to medications noncompliance Plan: Ativan 1 mg IV every 15 minutes when necessary for seizures. Seizure precautions. EEG. For now, would continue Dilantin 100 mg IV every 8 hours. Continue Keppra thousand milligrams IV every 12 hours. Supposedly she is on 1000 mg by mouth every 12 at home. Neurology consult. May need adjustment of her medications as patient is complaining of sleepiness and drowsiness mainly secondary to her seizure meds which leads her to be noncompliance. Abdominal KUB. GI consult. Nausea control. GI prophylaxis with pantoprazole. DVT prophylaxis with Lovenox. Discussed Condition With patient, ER Provider, Patient's Physician Certification 2 Midnight Certification Type: Admission for Inpatient Services Order for Inpatient Services The services are ordered in accordance with Medicare regulations or non- Medicare payer requirements, as applicable. In the case of services not specified as inpatient-only, they are appropriately provided as inpatient services in accordance with the 2-midnight benchmark. Estimated LOS (days): 2 days is the estimated time the patient will need to remain in the hospital, assuming treatment plan goals are met and no additional complications. Post-Hospital Plan: Home Adi Godoy MD Mar 06, 2017 07:38
[2017-03-06] MEDS ORDERED: ENALAPRILAT 2.5 MG/2 ML VIAL IV PUSH PRN (08:30)
[2017-03-06] MEDS ORDERED: SODIUM CHLORIDE 0.9% FLUSH 10 ML FLUSH IV FLUSH SCH (09:00)
[2017-03-06] MEDS ORDERED: ONDANSETRON HCL 4 MG/2 ML VIAL IV PUSH PRN (09:00)
[2017-03-06] MEDS ORDERED: levETIRAcetam 1000 MG INJ 100 ML IV SCH (09:00)
--- NOTE | 2017-03-06 09:11 | MB ---
cc: HARIS NICK DATE OF CONSULTATION 03/06/2017 REASON FOR CONSULTATION A 31-year-old right-handed woman I am asked to see for seizures. Her tells me that she has had seizures, over 100 in the last year, that she was not taking her medicines for the last two days because they make her feel groggy and she was going to school. She had over 20 seizures yesterday. She has a history of recurrent episodes of gastritis but has never been on any medications for gastritis. She was seen by GI before. She goes to school at [employer]. She was seen by Dr. Beltran in December of this year. She was evidently vomiting her Keppra. She has been taken 1000 mg twice a day of Keppra at home. She takes Dilantin level, although her is not sure exactly how much. She was given IV Keppra and Dilantin at that time. The patient's tells me that the patient has been scoped here before for gastritis but I do not see any records from GI and she has had recurring gastritis about three times a year where she vomits. She was at one time seeing a neurologist down in [place]. She was given Protonix IV in the hospital. Her said she was never sent home with any medications for her gastritis. She was sent home on Dilantin 200 mg b.i.d. and Keppra 1000 b.i.d. along with lisinopril and p.r.n. Zofran on her last admission. She is admitted now with intermittent vomiting and multiple seizures. She was given 2 mg of Ativan in the ER. She was vomiting on the way to the ER. MEDICATIONS Her outpatient medications are listed as - 1. Carvedilol. 2. Lisinopril. 3. Amlodipine. 4. Dilantin 200 b.i.d. 5. Keppra 1000 b.i.d. 6. Zofran. 7. Senna. Her EEG in the past was negative. Had some seizures in the hospital. REVIEW OF SYSTEMS There is a history of hypertension. She has had seizures for least four years according to her . No history of diabetes, hypercholesterolemia, heart attack,, stent, angioplasty, A-fib, Coumadin, renal, hepatic, pulmonary disease, thyroid disease lupus, cancer, or stroke. SOCIAL HISTORY Not a smoker or drinker. Lives with her . FAMILY HISTORY Positive for cancer, positive seizures in some cousins. Negative for stroke. PHYSICAL EXAMINATION VITAL SIGNS: On exam afebrile, 92, 18, 160/76 to 194/117. That is a bit higher than what she usually is, although in December she was up to 179/115. NECK: There were no carotid bruits. HEART: Regular rhythm. I do not detect a murmur. ABDOMEN: She is moderately obese. NEUROLOGICAL EXAMINATION: She awakens and tells me her name and follows some commands, holds her arms up but she appears either postictal or somewhat lethargic from the medication she has been given. Her pupils are equal. There were no carotid bruits. HEART: Regular rhythm. I do not detect a murmur. She moves all of her extremities well. Toes are downgoing bilaterally. LABORATORY DATA White count 15,000, otherwise CBC is normal. Dilantin level was 0.8. Coags are normal. Basic metabolic profile was normal. LFTs normal. TSH normal. IMAGING STUDIES She had an MRI of her brain done last admission, was unremarkable with and without contrast. She did have abdominal x-ray, negative. EEG Done in December with some slowing. CURRENT MEDICATIONS 1. She is on Keppra 1000 b.i.d. 2. Dilantin 100 q.8 hour. 3. Ativan p.r.n. She got 2 mg of Ativan last night. She had a loading dose of Dilantin. She also got an extra two so a total of 4 mg of Ativan last night. IMPRESSION 1. Breakthrough seizures. 2. History of gastritis with nausea and vomiting. RECOMMENDATIONS I would recommend having GI see the patient. She needs to be on something chronically for gastritis to prevent these recurrent symptoms and possibly scoped. It is unclear to me if she has ever been scoped. Her says that she has been scoped before, but I do not see any notes in the chart here saying she was ever scoped or that GI has ever seen her. She also needs to take her medication regularly. I discussed with her that they all need to do a better job caring for her and she needs to take her medications regularly as she has had over 100 seizures in the last year, according to her and that we need to make sure she takes them as scheduled, get her some medications so she can afford her meds and also make sure she is on something for GI, that she does not keep having gastritis which makes her throw up her meds and have seizures. MD DEBRA Whitten/SSB /8:18 AM /8:47 AM
[2017-03-06 11:00] LABS: HDL CHOLESTEROL 84.8 MG/DL (40.0-60.0); LDL CHOLESTEROL 88 MG/DL (0-99)
--- NOTE | 2017-03-06 11:06 | RADRPT ---
EXAM DATE/TIME: 03/06/2017 10:26 [facility] COMPARISON: ABDOMEN KUB ONLY, January 04, 2017, 9:50. INDICATIONS : Nausea. Vomiting. MEDICAL HISTORY : Gastroesophageal reflux disease. Hypertension Seizures. SURGICAL HISTORY : section. ENCOUNTER: Subsequent ACUITY: 1 week PAIN SCORE: 0/10 LOCATION: Bilateral abdomen FINDINGS: Supine view of the abdomen was performed with mosaic acquisition. There is large body habitus. The abdominal bowel gas pattern is normal. No abnormal masses, calcifications, or organomegaly is seen. The osseous structures are unremarkable. The visualized lower lungs are clear. CONCLUSION: No acute findings. No dilated loops of small or large bowel. Amauri Yancey MD on March 06, 2017 at 11:03 Board Certified Radiologist. This report was verified electronically.
[2017-03-06] MEDS: SODIUM CHLOR 0.9% 1000 ML INJ 1,000 ML IV SCH ×2 (12:14→20:40)
--- NOTE | 2017-03-06 12:14 | PD.CONS ---
HPI History of Present Illness This is a 31 year old female who is currently hospitalized for seizure activity and nausea/vomiting/abdominal pain. She reports that she has a long hx of intermittent "stomach issues." She states that she started having problems at age 11. She has been told that she has gastritis and gastroparesis in the past , but is not currently on any medications for this. She last had an EGD about 8 months ago and was told that she had gastritis and was given Prevacid, but she no longer takes this. She typically has flares of her nausea/vomiting about every 3 months. Sometimes, her flares seem to be related to her menstrual cycle, but sometimes she will have these out of nowhere. She does have frequent heartburn/reflux, but typically just takes Zofran as needed at home. She also has some epigastric discomfort, described as an ache and cannot identify any aggravating or alleviating factors. When she has her nausea and vomiting, she will vomit yellow bilious material, but no hematemesis. She denies any hematochezia or melena. She will usually having about 4-5 liquid stools when the N/V starts, but states after she has these, she will not move her bowels for another 4-5 days. She takes the zofran at home and when that does not seem to help, she will usually go to the ER for IV hydration. She does have a hx of seizure disorder, but her reports that she has not been taking these as prescribed because they make her drowsy and she had a hard time studying for school. She has been having multiple episodes of seizures at home and therefore she came to the ER for further evaluation. ( Niharika Bowman) [facility] Past Medical History Hypertension Seizure disorder Gastritis (not on meds) Gastroparesis (diagnosed in [place]- takes Zofran prn) Past Surgical History EGD (Niharika Bowman) Coded Allergies: No Known Allergies (Unverified , 01/11/17) Medications Allergies Coded Allergies Type Severity Reaction Last Updated Verified No Known Allergies 01/11/17 No Active Scripts Medications Dose Route/Sig Days Date Category Carvedilol 3.125 Mg Tab 3.125 Mg PO BID 01/11/17 Rx Lisinopril 40 Mg Tab 40 Mg PO DAILY 01/11/17 Rx Amlodipine (Amlodipine Besylate) 10 Mg Tab 10 Mg PO DAILY 01/11/17 Rx Dilantin (Phenytoin Extended) 100 Mg Cap 200 Mg PO BID 01/11/17 Rx Keppra (Levetiracetam) 1,000 Mg Tab 1,000 Mg PO BID 01/11/17 Rx Zofran Odt (Ondansetron Odt) 4 Mg Tab 4 Mg SL Q6HR PRN 01/11/17 Rx Senna Plus 8.6-50 mg (Sennosides-Docusate Sodium) 1 Tab Tab 2 Tab PO BID 01/05/17 Rx Family History Reports family history of breast cancer in the mother and colon cancer in the father Social History Denies smoking/alcohol abuse/drug abuse. Occasional marijuana use. (Niharika Bowman) Review of Systems Constitutional: COMPLAINS OF: Fatigue, DENIES: Fever, Chills, Change in appetite Respiratory: DENIES: Cough Cardiovascular: DENIES: Chest pain Gastrointestinal: COMPLAINS OF: Abdominal pain, Constipation, Diarrhea, Nausea , Vomiting, Heartburn, DENIES: Black stools, Bloody stools, Swelling of Abdomen , Hematemesis Musculoskeletal: COMPLAINS OF: Back pain Psychiatric: DENIES: Confusion ROS seizures (Niharika Bowman) GI Exam Vitals I&O Vital Signs Date Time Temp Pulse Resp B/P Pulse Ox O2 Delivery O2 Flow Rate FiO2 03/06/17 08:00 99 03/06/17 08:00 97.9 87 20 150/86 99 03/06/17 06:00 92 18 160/76 100 03/06/17 05:05 90 18 160/83 100 03/06/17 04:20 98.2 86 18 173/114 100 03/06/17 00:07 98.4 89 20 163/80 100 03/05/17 20:53 80 20 194/117 100 Room Air 03/05/17 20:37 100 Room Air 03/05/17 20:37 98.9 83 20 100 Room Air 03/05/17 20:34 98.9 71 23 100 I/O 03/05/17 03/05/17 03/05/17 03/06/17 03/06/17 03/06/17 07:00 15:00 23:00 07:00 15:00 23:00 Intake Total 0 ml Balance 0 ml Intake Oral 0 ml # Voids 1 Imaging Last Impressions Abdomen X-Ray 03/06/17 0000 Signed Impressions: Service Date/Time: Monday, March 06, 2017 10:26 - CONCLUSION: No acute findings. No dilated loops of small or large bowel. Amauri Yancey MD Laboratory Test 03/05/17 03/06/17 03/06/17 20:45 04:26 09:58 White Blood Count 7.9 TH/MM3 15.7 TH/MM3 Red Blood Count 4.02 MIL/MM3 4.11 MIL/MM3 Hemoglobin 13.0 GM/DL 12.9 GM/DL Hematocrit 37.9 % 38.7 % Mean Corpuscular Volume 94.2 FL 94.2 FL Mean Corpuscular Hemoglobin 32.2 PG 31.5 PG Mean Corpuscular Hemoglobin 34.2 % 33.4 % Concent Red Cell Distribution Width 14.3 % 14.3 % Platelet Count 234 TH/MM3 287 TH/MM3 Mean Platelet Volume 7.7 FL 7.3 FL Neutrophils (%) (Auto) 78.4 % 88.8 % Lymphocytes (%) (Auto) 15.8 % 6.3 % Monocytes (%) (Auto) 4.7 % 4.6 % Eosinophils (%) (Auto) 0.5 % 0.0 % Basophils (%) (Auto) 0.6 % 0.3 % Neutrophils # (Auto) 6.2 TH/MM3 14.0 TH/MM3 Lymphocytes # (Auto) 1.3 TH/MM3 1.0 TH/MM3 Monocytes # (Auto) 0.4 TH/MM3 0.7 TH/MM3 Eosinophils # (Auto) 0.0 TH/MM3 0.0 TH/MM3 Basophils # (Auto) 0.0 TH/MM3 0.0 TH/MM3 CBC Comment DIFF FINAL DIFF FINAL Differential Comment Prothrombin Time 11.3 SEC Prothromb Time International 1.0 RATIO Ratio Activated Partial 21.1 SEC Thromboplast Time Sodium Level 144 MEQ/L 140 MEQ/L Potassium Level 5.3 MEQ/L 3.8 MEQ/L Chloride Level 109 MEQ/L 108 MEQ/L Carbon Dioxide Level 25.8 MEQ/L 22.0 MEQ/L Anion Gap 9 MEQ/L 10 MEQ/L Blood Urea Nitrogen 7 MG/DL 6 MG/DL Creatinine 0.86 MG/DL 0.75 MG/DL Estimat Glomerular Filtration 92 ML/MIN 108 ML/MIN Rate Random Glucose 113 MG/DL 130 MG/DL Calcium Level 8.5 MG/DL 9.0 MG/DL Phosphorus Level 3.2 MG/DL Magnesium Level 2.1 MG/DL Total Bilirubin 0.3 MG/DL Aspartate Amino Transf 32 U/L (AST/SGOT) Alanine Aminotransferase 49 U/L (ALT/SGPT) Alkaline Phosphatase 73 U/L Total Protein 7.4 GM/DL Albumin 3.7 GM/DL Thyroid Stimulating Hormone 2.650 uIU/ML 3rd Gen Phenytoin (Dilantin) Level 0.8 MCG/ML 7.2 MCG/ML Erythrocyte Sedimentation Rate 1 mm/hr Troponin I LESS THAN 0.02 NG/ML Triglycerides Level 62 MG/DL Cholesterol Level 185 MG/DL LDL Cholesterol 88 MG/DL HDL Cholesterol 84.8 MG/DL Cholesterol/HDL Ratio 2.18 RATIO Vitamin B12 Level 475 PG/ML Physical Examination HEENT: Normocephalic; atraumatic; no jaundice. CHEST: CTA CARDIAC: RRR ABDOMEN: Soft, nondistended, nontender; no hepatosplenomegaly; bowel sounds are present in all four quadrants. EXTREMITIES: No clubbing, cyanosis, or edema. SKIN: Normal; no rash; no jaundice. [employer]: No focal deficits; Lethargic and oriented times three. (Niharika Bowman) Assessment and Plan Plan ASSESSMENT: - Nausea/Vomiting/Abdominal pain. Pt has dx of gastritis and gastroparesis and takes Zofran at home. She reports that she had GES that revealed delayed gastric emptying back in [facility] (when she was residing there). She denies ever being given any medication for this other than zofran. She also reports that she has gastritis and last had EGD about 8-9 months ago- given Prevacid, but no longer on. Pt cannot state who did this. It was not done at our facility. She has "flares" about q3 months with n/v (yellow bilious material), 5-6 liquid stools followed by constipation, and abdominal discomfort. Sometimes aggravated by menstrual cycle. Sometimes Zofran helps at home, but sometimes she requires IV hydration in ER. Abdomen X-Ray (03/06/17)---> No acute findings. No dilated loops of small or large bowel. Mild leukocytosis 15.7. LFT normal, Lipase pending. Protonix. - Seizure, pt has been off of medications at home. Dilantin. Neurology following. - Leukocytosis, possibly reactive. Will monitor. - HTN per primary PLAN: - Plan for EGD in am - Obtain consents - NPO after MN - Protonix 40mg IV BID - Consider adding EES - Avoid reglan given her sz hx - Supportive care - Further recommendations to follow based on results of above - PT seen and examined by Dr. Monaco and myself and this note is written on her behalf (Niharika Bowman) Physician Comments seen, examined agree with above being transferred to a different center for visual monitoring of seizures ( Azeb Monaco MD) Niharika Bowman Mar 06, 2017 12:14 Azeb Monaco MD Mar 06, 2017 18:36
[2017-03-06] MEDS: PANTOPRAZOLE SODIUM 40 MG VIAL IV PUSH SCH ×2 (12:15→20:40)
[2017-03-06] MEDS ORDERED: FOSPHENYTOIN INJ 400 MGPE in SODIUM CHLORIDE 0.9% INJ 50 ML IV ONE (15:30)
[2017-03-06] MEDS ORDERED: levETIRAcetam 500 MG/NS 100 ML IV ONE ×2 (15:30)
[2017-03-06] MEDS ORDERED: GADODIAMIDE PF 287 MG/ML 20 ML VIAL (for RAD MRI) IV ONE (17:23)
--- NOTE | 2017-03-06 17:37 | MG ---
cc: ALICIA BELTRAN M.D., TWETHIDA MD Lab No: Date: 03/06/17 Age: 31 Sex: F Race: REQUESTING PHYSICIAN Dr. Godoy. HISTORY An EEG was obtained on this 31-year-old patient being evaluated for seizures and postictal state. The patient is very sleepy during the EEG. MEDICATIONS 1. Keppra. 2. Ativan. 3. Hydralazine. DESCRIPTION The EEG shows predominantly sleep features. Noted at last there is awake type of recording as well. There are low amplitude alpha rhythms, low amplitude beta activity. There is some artifact. During sleep there is sleepy spindles and extensive beta rhythms diffusely. Photic stimulation disclosed no significant change. The patient awakens briefly. Hyperventilation was not performed. INTERPRETATION Normal predominantly asleep EEG. Alicia Beltran MD OFC/BJF /5:13 PM /5:16 PM
--- NOTE | 2017-03-06 18:06 | RADRPT ---
EXAM DATE/TIME: 03/06/2017 17:04 [facility] COMPARISON: MRI BRAIN W & W/O CONTRAST, January 02, 2017, 13:03. INDICATIONS : Seizures. CONTRAST: 20 cc Omniscan (gadodiamide) IV MEDICAL HISTORY : Hypertension. SURGICAL HISTORY : None. ENCOUNTER: Subsequent ACUITY: 1 day PAIN SCORE: 0/10 LOCATION: head. TECHNIQUE: Multiplanar, multisequence MRI of the brain was performed both prior to and following the administrat ion of paramagnetic contrast. FINDINGS: There is a prominent field distortion artifact obscuring portions of the temporal regions due to bila teral metallic earrings which could not be removed. CEREBRUM: The ventricles are normal for age. No evidence of midline shift, mass lesion, hemorrhage or acute in farction. No extraaxial fluid collections are seen. The pituitary gland and suprasellar cistern are normal in configuration. The temporal lobes are symmetric in appearance. WHITE MATTER: No significant signal abnormalities are seen in the white matter. POSTERIOR FOSSA: The cerebellum and brainstem are intact. The 4th ventricle is midline. The cerebellopontine angle is unremarkable. The cerebellar tonsils are normal in position. DIFFUSION IMAGING: No focal areas of restricted diffusion are seen. No evidence of acute infarction. EXTRACRANIAL: The visualized portions of the orbits and paranasal sinuses are unremarkable. POST-CONTRAST: No abnormal areas of parenchymal or dural enhancement. No evidence of blood-brain barrier breakdown. CONCLUSION: Negative MRI of the brain with and without contrast. Amauri Yancey MD on March 06, 2017 at 18:00 Board Certified Radiologist. This report was verified electronically.
--- NOTE | 2017-03-06 19:24 | HHI.PR ---
Subjective Remarks 2 gtc or appeared to be today got 1 mg ativan each did not seem to help acc to nurse tongue out but no bite no incont nurse last pm saw gen shaking and urinary incontinence she is awake now and says when sz comes on feels mm tightening i reviewed [facility] records from 07/03 and 08/[address] easton and artemio suspected pseudosz the former of which observed actual spell eeg neg in past and two neg here so far mri nl dil this am 7 so i gave 400 more and inc keppra to 1500 bid iv and will recheck level now shands and bob will take her when next bed opens up for video eeg call me if any new sz stomach soft now but a lot of hiccup and co stomach pain egd mild erythema curve of stomach 08/03 and small hiatal hernia Objective Vital Signs Date Time Temp Pulse Resp B/P Pulse Ox O2 Delivery O2 Flow Rate FiO2 03/06/17 14:20 99 21 03/06/17 12:00 80 18 109/63 98 03/06/17 08:00 99 03/06/17 08:00 97.9 87 20 150/86 99 03/06/17 06:00 92 18 160/76 100 03/06/17 05:05 90 18 160/83 100 03/06/17 04:20 98.2 86 18 173/114 100 03/06/17 00:07 98.4 89 20 163/80 100 03/05/17 20:53 80 20 194/117 100 Room Air 03/05/17 20:37 100 Room Air 03/05/17 20:37 98.9 83 20 100 Room Air 03/05/17 20:34 98.9 71 23 100 I/O 03/05/17 03/05/17 03/05/17 03/06/17 03/06/17 03/06/17 07:00 15:00 23:00 07:00 15:00 23:00 Intake Total 0 ml Balance 0 ml Intake Oral 0 ml # Voids 1 Result Diagram: 03/06/17 0426 03/06/17 0426 Objective Remarks awake follows commands knows in hospital Shailesh Workman MD Mar 06, 2017 19:24
[2017-03-06] MEDS ORDERED: levETIRAcetam INJ 1,500 MG in SODIUM CHLORIDE 0.9% INJ 100 ML IV SCH (21:00)
[2017-03-06] MEDS ORDERED: FOSPHENYTOIN SODIUM 100 MG PE/2 ML VIAL IV ONE (22:00)
[2017-03-06] MEDS ORDERED: FOSPHENYTOIN SODIUM 100 MG PE/2 ML VIAL IV SCH (22:00)
[2017-03-07] MEDS ORDERED: FOSPHENYTOIN SODIUM 100 MG PE/2 ML VIAL IV SCH (06:00)
--- NOTE | 2017-03-07 17:39 | MG ---
cc: ALICIA RUSSO M.D. Lab No: Date: 03/07/2017 Age: 31 Sex: F Race: HISTORY: This is a continuous EEG on this patient being evaluated for possible seizures. The patient is 31-year-old. DESCRIPTION OF THE RECORDING: The EEG today represents several hours of recording, approximately 6 hours and 37 minutes of time had elapsed between the beginning and the end of the recording. The recording shows low amplitude beta activity diffusely continuously. The F7 electrode is artifactual. The findings suggest a sleep type of background. There are some intermixed theta rhythms. There is no epileptiform activity. INTERPRETATION: Continuous EEG monitoring for several hours throughout the day today suggesting no epileptiform activity. The study is of low amplitude suggesting continuous sleep activity. MD SAUL Serrano/FRANCISCO /4:55 PM /5:34 PM
== END 2017-03-06 23:30 | disposition short-term general hospital (02) | DRG 101 ==
LOC: NEPC 20:29 → NEDA 22:59 → HCIS 03-06 04:13
PROVIDERS: ADMIT Internal Medicine; ATTEND Internal Medicine
DX: G40.909 Epilepsy, unspecified, not intractable, without status epilepticus (principal); I10 Essential (primary) hypertension; F12.90 Cannabis use, unspecified, uncomplicated; Z91.14 Patient's other noncompliance with medication regimen; Z87.891 Personal history of nicotine dependence; E66.9 Obesity, unspecified; Z68.36 Body mass index [BMI] 36.0-36.9, adult; K29.70 Gastritis, unspecified, without bleeding
CPT/HCPCS: 70553; 74000; 76937; 80048; 80053; 80061; 80185; 82607; 83735; 83921; 84100; 84207; 84425; 84443; 84484; 85025; 85610; 85652; 85730; 86038; 95819; 96374; 96375; 96376; A9579; C9113; J0360; J1165; J1953; J2060; J2405; J7030; Q2009

== ENCOUNTER 2017-06-10 18:08 | Emergency (ER) | payer OTHER ==
[~2017-06-10] VITALS: Ht 162.6 cm; Wt 97.0 kg
[2017-06-10 18:12] VITALS: BP 153/98; PULSE 107; RESP 20; TEMP 99.4; O2SAT 97
[2017-06-10] MEDS ORDERED: LIDOCAINE HCL 1% 50 ML VIAL INFIL ONE (18:45)
[2017-06-10] MEDS ORDERED: TETANUS/DIPHTHERIA TOXOID ADULT 0.5 ML VIAL IM ONE (18:45)
--- NOTE | 2017-06-10 19:07 | RADRPT ---
EXAM DATE/TIME: 06/10/2017 18:57 [facility] COMPARISON: No previous studies available for comparison. INDICATIONS : Right hand and wrist laceration. MEDICAL HISTORY : Hypertension. SURGICAL HISTORY : section. ENCOUNTER: Initial ACUITY: 1 day PAIN SCORE: 4/10 LOCATION: Right hand FINDINGS: Three view examination of the right hand demonstrates no soft tissue swelling, dislocation, or fractu re. The carpal bones appear intact. The interphalangeal and metacarpophalangeal joints are intact. Bony mineralization is normal. CONCLUSION: No fracture or foreign body. Papa Brambila MD on June 10, 2017 at 19:05 Board Certified Radiologist. This report was verified electronically.
[2017-06-10] MEDS ORDERED: DICL75TA PO (19:11)
[2017-06-10] MEDS ORDERED: BACT800T5 PO (19:11)
--- NOTE | 2017-06-10 19:21 | PD ---
HPI Chief Complaint: Laceration/Skin Injury Time Seen by Provider: 19:13 Travel History International Travel<30 days: No Contact w/Intl Traveler<30days: No Traveled to known affect area: No History of Present Illness HPI 32-year-old female that presents to the ED for evaluation of laceration to her right hand. Per patient is happened an hour before coming. Per patient she was helping a friend move a glass TV station and she lost her rn testing and he caught her. Per patient some of cough that she denies any foreign body sensation. Per patient is able to move all fingers but she has some difficulty with the first digit secondary to pain. She denies any numbness, tilling, weakness. Laceration is to the palmar aspect of the right hand. Less than 2 cm in length. Tender to touch. She denies any other injury. No allergies to medication. Pain per patient is 8 out of 10 especially with movement. PFSH Past Medical History Asthma: Yes Heart Rhythm Problems: Yes Cancer: No Cardiovascular Problems: Yes Diminished Hearing: No Endocrine: No Gastrointestinal Disorders: Yes (GASTRITIS) GERD: Yes Genitourinary: No Hypertension: Yes Immune Disorder: No Musculoskeletal: No Neurologic: Yes Psychiatric: No Reproductive: No Respiratory: Yes (ASTHMA) Seizures: Yes Tetanus Vaccination: Unknown Influenza Vaccination: No ?: Not LMP: on it now Menopausal: No : 2 Para: 1 Miscarriage: 1 Past Surgical History Section: Yes Gynecologic Surgery: Yes ( X1) Other Surgery: Yes (STOMACH BIOPSY) Social History Alcohol Use: No Tobacco Use: No Substance Use: No Allergies-Medications (Allergen,Severity, Reaction): Coded Allergies: No Known Allergies (Unverified , 06/10/17) Reported Meds & Prescriptions Reported Meds & Active Scripts Active Bactrim DS (Sulfamethoxazole-Trimethoprim) 800-160 Mg Tab 1 Tab PO BID [address] (Diclofenac Sodium) 75 Mg Tabdr 75 Mg PO BID PRN Carvedilol 3.125 Mg Tab 3.125 Mg PO BID Lisinopril 40 Mg Tab 40 Mg PO DAILY Amlodipine (Amlodipine Besylate) 10 Mg Tab 10 Mg PO DAILY Keppra (Levetiracetam) 1,000 Mg Tab 1,000 Mg PO BID Zofran Odt (Ondansetron Odt) 4 Mg Tab 4 Mg SL Q6HR PRN Review of Systems Except as stated in HPI: all other systems reviewed are Neg Physical Exam Narrative GENERAL: SKIN: Warm and dry. HEAD: Atraumatic. Normocephalic. EYES: Pupils equal and round. No scleral icterus. No injection or drainage. ENT: No nasal bleeding or discharge. Mucous membranes pink and moist. Tongue is midline. No uvula deviation. NECK: Trachea midline. No JVD. CARDIOVASCULAR: Regular rate and rhythm. No murmurs, S3, S4. RESPIRATORY: No accessory muscle use. Clear to auscultation. Breath sounds equal bilaterally. GASTROINTESTINAL: Abdomen soft, non-tender, nondistended. Hepatic and splenic margins not palpable. MUSCULOSKELETAL: Extremities without clubbing, cyanosis, or edema. No obvious deformities. Full range of motion of all fingers of the right hand. Patient does have some difficulty with abduction of the right first digit secondary to pain. Good capillary of all fingers. 2+ pulses on the radial and ulnar artery. Patient does have a superficial 2 cm laceration on the thenar aspect of the right hand. No obvious foreign body noted. No obvious tendon, vessel, nerve damage noted. NEUROLOGICAL: Awake and alert. No obvious cranial nerve deficits. Motor grossly within normal limits. Five out of 5 muscle strength in the arms and legs. Normal speech. PSYCHIATRIC: Appropriate mood and affect; insight and judgment normal. Data Data Last Documented VS Vital Signs Date Time Temp Pulse Resp B/P Pulse Ox O2 Delivery O2 Flow Rate FiO2 06/10/17 18:12 99.4 107 20 153/98 97 Room Air Orders Wound Care (06/10/17 18:32) Tetanus/Diphtheria Tox Adult (Tetanus/Di (06/10/17 18:45) Lidocaine 1% Inj (50 Ml) (Xylocaine 1% I (06/10/17 18:45) Hand, Complete ([id number]) (06/10/17 ) [facility] Medical Decision Making Medical Screen Exam Complete: Yes Emergency Medical Condition: Yes Medical Record Reviewed: Yes Interpretation(s) Last Impressions Hand X-Ray 06/10/17 0000 Signed Impressions: Service Date/Time: Saturday, June 10, 2017 18:57 - CONCLUSION: No fracture or foreign body. Papa Brambila MD Differential Diagnosis Laceration versus abrasion versus skin tear Narrative Course 32-year-old female that presents to the ED for evaluation of a laceration to the right hand. Patient was properly examined and was found to have signs and symptoms consistent with superficial laceration to the right hand. No sign of tendon, vessel, nerve damage noted. After explained procedure to the patient and she agreed to it laceration was repaired as stated in procedure note. After anesthetizing the wound patient was unable to fully abduct the right first digit with good strength. Patient was told to get sutures removed in 10 days. Follow with PCP. See ED worsening symptoms. Patient will be given a prescription for Bactrim and diclofenac sodium. Told to apply ice or warm compresses. Wound care was endorsed. Procedures Procedure Narrative LACERATION LOCATION: right hand LENGTH: 2 cm NUMBER OF STITCHES/MANDA: 2 sutures REPAIR: The area of the laceration was prepped with Betadine and sterilely draped. The laceration was infiltrated with 1% Xylocaine. The wound was copiously irrigated and explored without evidence of foreign body, tendon injury or neurovascular injury. The wound was closed using 4-0 Ethilone. This was a 1 layer repair. A sterile dressing was applied. The patient was advised to keep the dressing clean and dry. Patient tolerated the procedure well. Diagnosis Primary Impression: Laceration of hand Qualified Code: S61.411A - Laceration of right hand without foreign body, initial encounter Patient Instructions: General Instructions Additional Instructions: Wound care daily with soap and water. You can apply bandaid if needed. Neosporyn or OTC antibiotic ointment to area as needed twice a day for at least 2 weeks to help with scarring and prevent infection. Meoderma OTC for scarring if needed. Avoid sun exposure for 2 months as the sun could make scar darker and more noticeable. Get sutures removed in 10-14 days. See ED if worst. Med/Other Pt SpecificInfo: Prescription(s) given, Wound Care Scripts Sulfamethoxazole-Trimethoprim (Bactrim DS)800-160 Mg Tab1 Tab PO BID 7 Days Ref 0 Prov:Rl Martins MD 06/10/[address] 75 Mg Tabdr75 Mg PO BID PRN (PAIN SCALE 1 TO 10) #20 TAB Prov:Rl Martins MD 06/10/17 Disposition: 01 DISCHARGE HOME Condition: Stable Reji Morrell Jun 10, 2017 19:21
== END 2017-06-10 19:33 | disposition home or self-care (01) ==
LOC: NEPD 18:08
DX: S61.411A Laceration without foreign body of right hand, initial encounter (principal); R05 Cough; J45.909 Unspecified asthma, uncomplicated; K21.9 Gastro-esophageal reflux disease without esophagitis; I10 Essential (primary) hypertension; R56.9 Unspecified convulsions; W22.8XXA Striking against or struck by other objects, initial encounter; Z23 Encounter for immunization; Z79.899 Other long term (current) drug therapy
CPT/HCPCS: 12001; 73130; 90471; 90714

== ENCOUNTER 2017-11-03 10:16 | Emergency (ER) | payer OTHER ==
[~2017-11-03] VITALS: Ht 160 cm; Wt 97.5 kg
[~2017-11-03 10:16] MED LIST changes: +BACT800T5 PO; +DICL75TA PO; -DILA100C PO; -SENN1TAB PO
[2017-11-03 10:17] VITALS: BP 129/98; PULSE 85; RESP 16; TEMP 98.7; O2SAT 100
--- NOTE | 2017-11-03 11:02 | PD ---
HPI Chief Complaint: Injury Time Seen by Provider: 10:58 Travel History International Travel<30 days: No Contact w/Intl Traveler<30days: No Traveled to known affect area: No History of Present Illness HPI 32-year-old hand dominant female presents to the ED for evaluation of 3 day history of left third and fourth finger pain. Onset after she jammed the fingers all playing basketball. Patient dorsal is limited range of motion secondary to pain and swelling. She denies numbness, tingling of the extremity. She's never injured it before. No treatment attempted at home. She denies risk of . PFSH Past Medical History Asthma: Yes Heart Rhythm Problems: Yes Cancer: No Cardiovascular Problems: Yes Diminished Hearing: No Endocrine: No Gastrointestinal Disorders: Yes (GASTRITIS) GERD: Yes Genitourinary: No Hypertension: Yes Immune Disorder: No Musculoskeletal: No Neurologic: Yes Psychiatric: No Reproductive: No Respiratory: Yes (ASTHMA) Seizures: Yes ?: Not LMP: 10/23/17 Menopausal: No : 2 Para: 1 Miscarriage: 1 Past Surgical History Section: Yes Gynecologic Surgery: Yes ( X1) Other Surgery: Yes (STOMACH BIOPSY) Social History Alcohol Use: No Tobacco Use: No Substance Use: No Allergies-Medications (Allergen,Severity, Reaction): Coded Allergies: No Known Allergies (Unverified Adverse Reaction, Unknown, 11/03/17) Reported Meds & Prescriptions Reported Meds & Active Scripts Active Ibuprofen 800 Mg Tab 800 Mg PO Q8H PRN Carvedilol 3.125 Mg Tab 3.125 Mg PO BID Lisinopril 40 Mg Tab 40 Mg PO DAILY Amlodipine (Amlodipine Besylate) 10 Mg Tab 10 Mg PO DAILY Keppra (Levetiracetam) 1,000 Mg Tab 1,000 Mg PO BID Zofran Odt (Ondansetron Odt) 4 Mg Tab 4 Mg SL Q6HR PRN Review of Systems Except as stated in HPI: all other systems reviewed are Neg Physical Exam Narrative GENERAL: Well-nourished, well-developed female in no acute distress SKIN: Focused skin assessment warm/dry. HEAD: Normocephalic. EYES: No scleral icterus. No injection or drainage. NECK: Supple, trachea midline. No JVD or lymphadenopathy. CARDIOVASCULAR: Regular rate and rhythm without murmurs, gallops, or rubs. RESPIRATORY: Breath sounds equal bilaterally. No accessory muscle use. GASTROINTESTINAL: Abdomen soft, non-tender, nondistended. MUSCULOSKELETAL: No cyanosis, or edema. FOCUSED LEFT UPPER EXTREMITY EXAM: 2+ radial pulse. The fourth digit are edematous, ecchymotic and tender. She is able to flex at the MP joints. Patient is resistant to further range of motion testing secondary to pain. Cap refill less than 2 seconds. Sensation intact to light touch distally. BACK: Nontender without obvious deformity. No CVA tenderness. Data Data Last Documented VS Vital Signs Date Time Temp Pulse Resp B/P (MAP) Pulse Ox O2 Delivery O2 Flow Rate FiO2 11/03/17 10:17 98.7 85 16 129/98 (108) 100 Orders Orders Hand, Complete ([id number]) (11/03/17 10:49) Ibuprofen (Motrin) (11/03/17 11:15) Support Splint (11/03/17 11:30) Ed Discharge Order (11/03/17 11:35) MDM Medical Decision Making Medical Screen Exam Complete: Yes Emergency Medical Condition: Yes Differential Diagnosis Jammed finger versus fracture versus dislocation versus other Narrative Course 32-year-old right-hand dominant female since the ED for left third and fourth finger pain after jamming her hand with a basketball a few days ago. X-rays reveal fracture of the distal phalanx of the middle finger. He was splinted in full extension. Patient's prescribed ibuprofen 800 mg 3 times a day when necessary pain, first dose administered in the ED. She is instructed to keep the splint on until evaluated by the hand surgeon. She is provided with Dr. Whitley's information. She is stable and discharged home. Diagnosis Primary Impression: Phalanx, distal fracture of finger Qualified Codes: S62.663A - Nondisplaced fracture of distal phalanx of left middle finger, initial encounter for closed fracture Referrals: Ariel Serra MD Patient Instructions: Finger Fracture (ED), General Instructions Additional Instructions: Rest, ice, elevate the extremity. Elevation of the extremity will help reduce throbbing pain. Apply ice no longer than 10-15 minutes per hour a few times a day. 800 mg ibuprofen up to 3 times a day as needed for pain. Keep the splint on until evaluated by the hand surgeon. Follow-up with Dr. Soliz as discussed. Return to the ED for any urgent or emergent medical condition. Med/Other Pt SpecificInfo: Prescription(s) given Scripts Ibuprofen (Ibuprofen) 800 Mg Tab 800 MG PO Q8H Y for Pain/Inflammation, #15 TAB 0 Refills Prov: Rl Martins MD 11/03/17 Disposition: 01 DISCHARGE HOME Condition: Stable Shanel Mims Nov 03, 2017 11:02
[2017-11-03] MEDS ORDERED: IBUPROFEN 800 MG TAB PO ONE (11:15)
--- NOTE | 2017-11-03 11:17 | RADRPT ---
EXAM DATE/TIME: 11/03/2017 11:02 [facility] COMPARISON: No previous studies available for comparison. INDICATIONS : Left hand 3rd and 4th finger pain, jammed playing basketball MEDICAL HISTORY : None. SURGICAL HISTORY : None. ENCOUNTER: Initial ACUITY: 2 days PAIN SCORE: 8/10 LOCATION: Left Hand FINDINGS: There is a nondisplaced oblique fracture involving the midshaft of the left third middle phalanx. CONCLUSION: Nondisplaced oblique fracture involving the midshaft of the left third middle phalanx. Asad Marcelo MD on November 03, 2017 at 11:14 Board Certified Radiologist. This report was verified electronically.
[2017-11-03] MEDS ORDERED: IBUP1TAB7 PO (11:36)
== END 2017-11-03 11:48 | disposition home or self-care (01) ==
LOC: NEPD 10:16
DX: S62.653A Nondisplaced fracture of middle phalanx of left middle finger, initial encounter for closed fracture (principal); J45.909 Unspecified asthma, uncomplicated; K21.9 Gastro-esophageal reflux disease without esophagitis; I10 Essential (primary) hypertension; R56.9 Unspecified convulsions; W21.05XA Struck by basketball, initial encounter; Y93.67 Activity, basketball; Z79.899 Other long term (current) drug therapy
CPT/HCPCS: 73130; 99283

== ENCOUNTER 2017-12-16 19:51 | Emergency (ER) | payer OTHER ==
[~2017-12-16] VITALS: Ht 165.1 cm; Wt 98.0 kg
[~2017-12-16 19:51] MED LIST changes: -BACT800T5 PO; -DICL75TA PO; +IBUP1TAB7 PO
[2017-12-16 19:59] VITALS: BP 170/120; PULSE 100; RESP 20; TEMP 98; O2SAT 98
[2017-12-16 20:02] VITALS: BP 156/94; PULSE 97; RESP 20; TEMP 98; O2SAT 100
[2017-12-16 20:18] VITALS: RESP 20
[2017-12-16 20:19] VITALS: BP 152/99; PULSE 99; RESP 20; O2SAT 100
--- NOTE | 2017-12-16 20:28 | PD ---
HPI Chief Complaint: Seizure Time Seen by Provider: 20:13 Travel History International Travel<30 days: No Contact w/Intl Traveler<30days: No Traveled to known affect area: No History of Present Illness HPI The patient is a 32 year old female who presents to the [facility] emergency department with a history of seizure activity that reportedly occurred prior to arrival. The seizure activity was reportedly witnessed by her significant other. The seizure activity lasted for approximately 30 seconds. The patient reports that she's had a recent recurrence of midepigastric abdominal pain associated with nausea and has not been tolerating taking her blood pressure medication and seizure medication as prescribed. The patient reports that she has been taking Zofran for nausea without relief. Otherwise on review of systems, the patient denies having any known recent fevers, cough, congestion, neck pain, chest pain, shortness of breath, diarrhea , urinary symptoms, or other neurologic symptoms. [facility] Past Medical History Narrative Medical the patient's past medical history is significant for seizure disorder, hypertension, gastritis Asthma: Yes Heart Rhythm Problems: Yes Cancer: No Cardiovascular Problems: Yes Diminished Hearing: No Endocrine: No Gastrointestinal Disorders: Yes (GASTRITIS) GERD: Yes Genitourinary: No Hypertension: Yes Immune Disorder: No Musculoskeletal: No Neurologic: Yes Psychiatric: No Reproductive: No Respiratory: Yes (ASTHMA) Immunizations Current: Yes Seizures: Yes Tetanus Vaccination: < 5 Years Influenza Vaccination: No ?: Not LMP: 12/09/17 Menopausal: No : 2 Para: 1 Miscarriage: 1 Past Surgical History Narrative Surgical The patient's past surgical history is significant for . Section: Yes Gynecologic Surgery: Yes ( X1) Other Surgery: Yes (STOMACH BIOPSY) Social History Alcohol Use: No Tobacco Use: No Substance Use: No Allergies-Medications (Allergen,Severity, Reaction): Coded Allergies: No Known Allergies (Unverified Adverse Reaction, Unknown, 12/16/17) Reported Meds & Prescriptions Reported Meds & Active Scripts Active Phenergan Supp (Promethazine HCl) 25 Mg Supp 25 Mg RECTAL Q8HR PRN Famotidine 20 Mg Tab 20 Mg PO BID Carvedilol 3.125 Mg Tab 3.125 Mg PO BID Lisinopril 40 Mg Tab 40 Mg PO DAILY Amlodipine (Amlodipine Besylate) 10 Mg Tab 10 Mg PO DAILY Keppra (Levetiracetam) 1,000 Mg Tab 1,000 Mg PO BID Reported Zofran (Ondansetron HCl) 4 Mg Tab 4 Mg PO Q6HR PRN Review of Systems Except as stated in HPI: all other systems reviewed are Neg General / Constitutional: No: Fever Eyes: No: Visual changes HENT: No: Headaches Cardiovascular: No: Chest Pain or Discomfort Respiratory: No: Shortness of Breath Gastrointestinal: Positive: Nausea, Vomiting, Abdominal Pain, Indigestion, Loss of Appetite Genitourinary: No: Dysuria Musculoskeletal: No: Pain Skin: No Rash Neurologic: Positive: Change in Mentation, Seizures, No: Weakness, Focal Abnormalities, Slurred Speech, Sensory Disturbance Psychiatric: No: Depression Endocrine: No: Polydipsia Hematologic/Lymphatic: No: Easy Bruising Physical Exam Narrative General: The patient is a well-developed well-nourished female in no acute distress. Head and Neck exam: Head is normocephalic atraumatic. Eyes: EOMI, pupils are equal round and reactive to light. Nose: Midline septum with pink mucous membranes Mouth: Dentition unremarkable. Moist mucus membranes. Posterior oropharynx is not erythematous. No tonsillar hypertrophy. Uvula midline. Airway patent. No evidence of trauma to her tongue. Neck: No palpable lymphadenopathy. No nuchal rigidity. No thyromegaly. Cardiovascular: Sinus tachycardia in the low 100 without murmurs, gallops, or rubs. No pulse deficit to the extremities on simultaneous auscultation and palpation of her radial artery. Lungs: Clear to auscultation bilaterally. No wheezes, rhonchi, or rales. Abdomen: Soft, without tenderness to palpation in all 4 quadrants of the abdomen. No guarding, rebound, or rigidity. Normal bowel sounds are audible. No tenderness on palpation of McBurney's point. Negative Richard's sign. Extremities: No clubbing, cyanosis, or edema. 2+ pulses in all 4 extremities. No calf tenderness on palpation. Back: No costovertebral angle tenderness to palpation. Neurologic Exam: Grossly nonfocal. Skin Exam: No rash noted. Intact skin that is warm and dry. Data Data Last Documented VS Vital Signs Date Time Temp Pulse Resp B/P (MAP) Pulse Ox O2 Delivery O2 Flow Rate FiO2 12/16/17 22:59 95 20 166/82 (110) 100 Nasal Cannula 2.00 12/16/17 20:02 98.0 Orders Orders Electrocardiogram (12/16/17 20:15) Complete Blood Count With Diff (12/16/17 20:15) Comprehensive Metabolic Panel (12/16/17 20:15) Lipase (12/16/17 20:15) Urinalysis - C+S If Indicated (12/16/17 20:15) Phenytoin (Dilantin) (12/16/17 20:15) Iv Access Insert/Monitor (12/16/17 20:15) Ecg Monitoring (12/16/17 20:15) Oximetry (12/16/17 20:15) Ed Urine Pregnancytest Poc (12/16/17 20:15) Drug Screen, Random Urine (12/16/17 20:15) Alcohol (Ethanol) (12/16/17 20:15) Levetiracetam (12/16/17 20:25) Fosphenytoin Inj (Cerebyx Inj) (12/16/17 22:00) Sodium Chlor 0.9% 1000 Ml Inj (Ns 1000 M (12/16/17 22:00) Ondansetron Inj (Zofran Inj) (12/16/17 22:00) Potassium Chloride (Kcl) (12/16/17 23:15) Labs Laboratory Tests Test 12/16/17 20:40 White Blood Count 10.2 TH/MM3 Red Blood Count 4.53 MIL/MM3 Hemoglobin 14.5 GM/DL Hematocrit 41.2 % Mean Corpuscular Volume 90.9 FL Mean Corpuscular Hemoglobin 32.1 PG Mean Corpuscular Hemoglobin Concent 35.3 % Red Cell Distribution Width 13.4 % Platelet Count 295 TH/MM3 Mean Platelet Volume 8.0 FL Neutrophils (%) (Auto) 74.5 % Lymphocytes (%) (Auto) 16.7 % Monocytes (%) (Auto) 8.1 % Eosinophils (%) (Auto) 0.1 % Basophils (%) (Auto) 0.6 % Neutrophils # (Auto) 7.6 TH/MM3 Lymphocytes # (Auto) 1.7 TH/MM3 Monocytes # (Auto) 0.8 TH/MM3 Eosinophils # (Auto) 0.0 TH/MM3 Basophils # (Auto) 0.1 TH/MM3 CBC Comment DIFF FINAL Differential Comment Blood Urea Nitrogen 10 MG/DL Creatinine 0.81 MG/DL Random Glucose 82 MG/DL Total Protein 8.1 GM/DL Albumin 4.3 GM/DL Calcium Level 9.9 MG/DL Alkaline Phosphatase 57 U/L Aspartate Amino Transf (AST/SGOT) 16 U/L Alanine Aminotransferase (ALT/SGPT) 20 U/L Total Bilirubin 1.0 MG/DL Sodium Level 130 MEQ/L Potassium Level 3.4 MEQ/L Chloride Level 94 MEQ/L Carbon Dioxide Level 26.8 MEQ/L Anion Gap 9 MEQ/L Estimat Glomerular Filtration Rate 98 ML/MIN Lipase 87 U/L Phenytoin (Dilantin) Level LESS THAN 0.4 MCG/ML Ethyl Alcohol Level LESS THAN 3 MG/DL MDM Medical Decision Making Medical Screen Exam Complete: Yes Emergency Medical Condition: Yes Medical Record Reviewed: Yes Differential Diagnosis Subtherapeutic antiepileptic medication levels, versus electrolyte abnormality precipitating seizures, versus hypoglycemia Narrative Course During the course of the patients emergency department visit, the patients history, examination, and differential diagnosis were reviewed with the patient. The patient was placed on a campus monitor with oximetry and frequent blood pressure monitoring. The patient had IV access obtained and blood work sent for analysis. The patient had an EKG done on arrival that shows a sinus tachycardia rate of 104, nonspecific ST-T wave abnormalities, QRS duration is 100 ms, QTC [address] segment elevation, T waves are inverted in lead 3, aVF. The patient was initially provided normal saline 1 L IV fluid bolus, Zofran 4 mg IV. The patients laboratory studies were reviewed and remarkable for a white count of 10.2, hemoglobin 14.5, platelets 295 with neutrophils 74.5, monocytes 8.1, CMP is remarkable for potassium of 3.4 which was supplemented orally, lipase 87 , sodium 130, Dilantin level less than 0.4, alcohol level less than 3, Keppra level is pending. The patient was loaded with fosphenytoin 1 g IV. The patient will be discharged home with the prescription for famotidine and Phenergan suppositories for nausea when Zofran oral dissolving tablet is not improving her nausea. The patient is also given the name of the hot mill supervisor on- call for follow-up, Dr. Gloria, due to the chronic nature of this patient's midepigastric abdominal discomfort and nausea. Diagnosis Primary Impression: Seizure Additional Impressions: Noncompliance with medication regimen Nausea & vomiting Qualified Codes: R11.2 - Nausea with vomiting, unspecified Referrals: Tayo Gloria MD call for appointment Neurologist Primary Care Physician Patient Instructions: Acute Nausea and Vomiting (ED), Epilepsy (ED), General Instructions Med/Other Pt SpecificInfo: Prescription(s) given Scripts Promethazine Supp (Phenergan Supp) 25 Mg Supp 25 MG RECTAL Q8HR Y for NAUSEA OR VOMITING, #3 SUPP 0 Refills Prov: Rubia Cadet MD 12/16/17 Famotidine (Famotidine) 20 Mg Tab 20 MG PO BID, #60 TAB 0 Refills Prov: Rubia Cadet MD 12/16/17 Disposition: 01 DISCHARGE HOME Condition: Stable Rubia Cadet MD Dec 16, 2017 20:28
[2017-12-16] MEDS ORDERED: ZOFR4TAB PO (20:33)
[2017-12-16 21:24] LABS: AUTOMATED NEUTROPHIL # 7.6 TH/MM3 (1.8-7.7); BASOPHIL # 0.1 TH/MM3 (0-0.2); BASOPHIL % 0.6 % (0.0-2.0); EOSINOPHIL % 0.1 % (0.0-4.0); HEMATOCRIT 41.2 % (35.0-46.0); HEMOGLOBIN 14.5 GM/DL (11.6-15.3); LYMPH % 16.7 % (9.0-44.0); LYMPHOCYTE # 1.7 TH/MM3 (1.0-4.8); MEAN CELL VOLUME 90.9 FL (80.0-100.0); MEAN CORPUSCULAR HEMOGLOBIN 32.1 PG (27.0-34.0); MEAN CORPUSCULAR HGB CONC 35.3 % (32.0-36.0); MONO % 8.1 % (0.0-8.0); MONOCYTE # 0.8 TH/MM3 (0-0.9); NEUT % 74.5 % (16.0-70.0); PLATELET COUNT 295 TH/MM3 (150-450); RED BLOOD COUNT 4.53 MIL/MM3 (4.00-5.30); RED CELL DISTRIBUTION WIDTH 13.4 % (11.6-17.2); WHITE BLOOD COUNT 10.2 TH/MM3 (4.0-11.0)
[2017-12-16 21:52] LABS: ALT (GPT) 20 U/L (10-53)
[2017-12-16 21:54] LABS: ALKALINE PHOSPHATASE 57 U/L (45-117); PHENYTOIN (DILANTIN) LESS THAN 0.4 MCG/ML (10.0-20.0); TOTAL PROTEIN 8.1 GM/DL (6.4-8.2)
[2017-12-16 21:57] LABS: ALBUMIN 4.3 GM/DL (3.4-5.0); AST (GOT) 16 U/L (15-37); BICARBONATE 26.8 MEQ/L (21.0-32.0); BLOOD UREA NITROGEN 10 MG/DL (7-18); CALCIUM 9.9 MG/DL (8.5-10.1); CHLORIDE 94 MEQ/L (98-107); CREATININE 0.81 MG/DL (0.50-1.00); GLOMERULAR FILTRATION RATE 98 ML/MIN (>89); GLUCOSE,RANDOM 82 MG/DL (74-106); LIPASE 87 U/L (73-393); SODIUM (NA) 130 MEQ/L (136-145)
[2017-12-16] MEDS ORDERED: FOSPHENYTOIN INJ 1,000 MGPE in SODIUM CHLORIDE 0.9% INJ 50 ML IV ONE (22:00)
[2017-12-16] MEDS ORDERED: SODIUM CHLOR 0.9% 1000 ML INJ 1,000 ML IV ONE (22:00)
[2017-12-16] MEDS ORDERED: ONDANSETRON HCL 4 MG/2 ML VIAL IV ONE (22:00)
[2017-12-16 22:59] VITALS: BP 166/82; PULSE 95; RESP 20; O2SAT 100
[2017-12-16] MEDS ORDERED: PROM1SUP7 RECTAL (23:12)
[2017-12-16] MEDS ORDERED: FAMO20TA2 PO (23:12)
[2017-12-16] MEDS ORDERED: POTASSIUM CHLORIDE 20 MEQ CONTROLLED RELEASE TAB PO ONE (23:15)
--- NOTE | 2017-12-18 00:46 | EKG ---
Date Performed: 12/16/2017 Time Performed: 20:29:05 PTAGE: 32 years EKG: SINUS TACHYCARDIA NONSPECIFIC ST & T-WAVE ABNORMALITY ABNORMAL RHYTHM ECG PREVIOUS TRACING : 01/02/2017 07.42 Compared to prior tracing, rate has increased DOCTOR: Thanh Enriquez Interpretating Date/Time 12/18/2017 00:45:17
== END 2017-12-17 00:31 | disposition home or self-care (01) ==
LOC: NEPE 19:51
DX: G40.909 Epilepsy, unspecified, not intractable, without status epilepticus (principal); R11.2 Nausea with vomiting, unspecified; I10 Essential (primary) hypertension; J45.909 Unspecified asthma, uncomplicated; K21.9 Gastro-esophageal reflux disease without esophagitis; R94.31 Abnormal electrocardiogram [ECG] [EKG]; Z91.14 Patient's other noncompliance with medication regimen; Z79.899 Other long term (current) drug therapy
CPT/HCPCS: 80053; 80177; 80185; 80307; 83690; 84703; 85025; 93005; 96361; 96365; 96375; 99284; J2405; J7030; Q2009

== ENCOUNTER 2017-12-19 15:01 | Emergency (ER) | payer OTHER ==
[~2017-12-19 15:01] MED LIST changes: +FAMO20TA2 PO; -IBUP1TAB7 PO; +PROM1SUP7 RECTAL; +ZOFR4TAB PO; -ZOFR4TAB3 SL
[2017-12-19 15:08] VITALS: BP 121/63; PULSE 90; RESP 15; TEMP 98.2; O2SAT 98
== END 2017-12-19 16:58 | disposition left against medical advice (07) ==
LOC: NED 15:01
DX: R07.9 Chest pain, unspecified (principal); Z53.21 Procedure and treatment not carried out due to patient leaving prior to being seen by health care provider
CPT/HCPCS: 99281

== ENCOUNTER 2018-03-09 12:21 | Emergency (ER) | payer OTHER ==
[~2018-03-09] VITALS: Ht 162.6 cm; Wt 102.0 kg
[2018-03-09 12:28] VITALS: BP 129/90; PULSE 76; RESP 22; TEMP 98.6; O2SAT 99
--- NOTE | 2018-03-09 12:38 | PD ---
HPI Chief Complaint: Fall Time Seen by Provider: 12:34 Travel History International Travel<30 days: No Contact w/Intl Traveler<30days: No Traveled to known affect area: No History of Present Illness HPI 32-year-old -[place] female presents emergency department status post slip and fall in her own home. Patient states she was mopping the floor when she slipped and slipped forward landing on her mop bucket with her left anterior lateral thoracic region and upper abdomen. She is here complaining of rib pain and difficulty taking a deep breath secondary to pain. She states she did not lose consciousness. Pain is 9 out of 10, and worse with deep breath and movement. She denies nausea, vomiting, neck pain, headache, or other constitutional symptoms. She has no known drug allergies. O2 sat is 99% on room air in triage. PFSH Past Medical History Asthma: Yes Heart Rhythm Problems: Yes Cancer: No Cardiovascular Problems: Yes Diminished Hearing: No Endocrine: No Gastrointestinal Disorders: Yes (GASTRITIS) GERD: Yes Genitourinary: No Hypertension: Yes Immune Disorder: No Musculoskeletal: No Neurologic: Yes Psychiatric: No Reproductive: No Respiratory: Yes (ASTHMA) Immunizations Current: Yes Seizures: Yes ?: Not Menopausal: No : 2 Para: 1 Miscarriage: 1 Past Surgical History Section: Yes Gynecologic Surgery: Yes ( X1) Other Surgery: Yes (STOMACH BIOPSY) Social History Alcohol Use: No Tobacco Use: No Substance Use: No Allergies-Medications (Allergen,Severity, Reaction): Coded Allergies: No Known Allergies (Unverified Adverse Reaction, Unknown, 12/16/17) Reported Meds & Prescriptions Reported Meds & Active Scripts Active Phenergan Supp (Promethazine HCl) 25 Mg Supp 25 Mg RECTAL Q8HR PRN Famotidine 20 Mg Tab 20 Mg PO BID Carvedilol 3.125 Mg Tab 3.125 Mg PO BID Lisinopril 40 Mg Tab 40 Mg PO DAILY Amlodipine (Amlodipine Besylate) 10 Mg Tab 10 Mg PO DAILY Keppra (Levetiracetam) 1,000 Mg Tab 1,000 Mg PO BID Reported Zofran (Ondansetron HCl) 4 Mg Tab 4 Mg PO Q6HR PRN Review of Systems Except as stated in HPI: all other systems reviewed are Neg General / Constitutional: No: Fever Eyes: No: Visual changes HENT: No: Headaches Cardiovascular: Positive: Chest Pain or Discomfort (See history of present illness per) Respiratory: Positive: Shortness of Breath (Due to pain.), Pleuritic Pain (See history of present illness per), No: Cough, Wheezing, Sneezing, Orthopnea, Hemoptysis, Stridor Gastrointestinal: No: Nausea, Vomiting, Diarrhea, Abdominal Pain Genitourinary: No: Dysuria Musculoskeletal: No: Pain Skin: No Rash Neurologic: No: Weakness Psychiatric: No: Depression Endocrine: No: Polydipsia Hematologic/Lymphatic: No: Easy Bruising Physical Exam Narrative GENERAL: Patient appears in moderate distress. She is ambulatory to the room however SKIN: Warm and dry. Normal color. Normal turgor. There is no sign of ecchymosis or abrasion to the anterior thoracic region on the left. No subcutaneous air. HEAD: Atraumatic. Normocephalic. EYES: Pupils equal and round. No scleral icterus. No injection or drainage. ENT: No nasal bleeding or discharge. Mucous membranes pink and moist. Pharynx is clear. Airways patent NECK: Trachea midline. Supple and nontender. CARDIOVASCULAR: Regular rate and rhythm. RESPIRATORY: No accessory muscle use. Clear to auscultation. Breath sounds equal bilaterally. Patient complains of pain with palpation along the anterior lateral lower thoracic region without specific point tenderness or crepitus. GASTROINTESTINAL: Abdomen soft, non-tender, nondistended. Hepatic and splenic margins not palpable. MUSCULOSKELETAL: Extremities without clubbing, cyanosis, or edema. No obvious deformities. NEUROLOGICAL: Awake and alert. No obvious cranial nerve deficits. Motor grossly within normal limits. Five out of 5 muscle strength in the arms and legs. Normal speech. PSYCHIATRIC: Appropriate mood and affect; insight and judgment normal. Data Data Last Documented VS Vital Signs Date Time Temp Pulse Resp B/P (MAP) Pulse Ox O2 Delivery O2 Flow Rate FiO2 03/09/18 12:28 98.6 76 22 129/90 (103) 99 Orders Orders Ribs, Uni (W/Exp Cxr-Min 3vw) (03/09/18 12:37) Ketorolac Inj (Toradol Inj) (03/09/18 12:45) Oxycodone-Acetamin 7.5-325 Mg (Percocet (03/09/18 12:45) Acetamin-Hydrocod 325-5 Mg ([place] 5-325 (03/09/18 13:30) MDM Medical Decision Making Medical Screen Exam Complete: Yes Emergency Medical Condition: Yes Differential Diagnosis Slip and fall. Thoracic wall contusion. Rib fracture. Pneumothorax Narrative Course Patient is medically stable time exam. X-rays of the left ribs and chest were ordered. Patient is given Toradol 60 mg IM as well as hydrocodone 5/325 p.o. now. X-rays show no acute fracture or pneumothorax. Per radiologist. Patient will be treated with ibuprofen 600 mg 4 times daily #40. Patient also given Lortab 5/325 one every 6 hours as needed #12 Patient is to rest, use frequent ice to the area, and follow-up as needed Diagnosis Primary Impression: Contusion of left front wall of thorax, initial encounter Patient Instructions: General Instructions, Rib Contusion (ED), Thoracic Pain ( ED) Additional Instructions: Patient is given Toradol 60 mg IM as well as hydrocodone 5/325 p.o. now. X-rays show no acute fracture or pneumothorax. Per radiologist. Patient will be treated with ibuprofen 600 mg 4 times daily #40. Patient also given Lortab 5/325 one every 6 hours as needed #12 Patient is to rest, use frequent ice to the area, and follow-up as needed Med/Other Pt SpecificInfo: Prescription(s) given Disposition: 01 DISCHARGE HOME Condition: Stable Amado Mcfarland Mar 09, 2018 12:38
[2018-03-09] MEDS ORDERED: oxyCODONE/ACETAMINOPHEN 7.5 MG/325 MG TAB PO ONE (12:45)
[2018-03-09] MEDS ORDERED: KETOROLAC TROMETHAMINE 60 MG/2 ML (IM) VIAL IM ONE (12:45)
--- NOTE | 2018-03-09 13:20 | RADRPT ---
EXAM DATE/TIME: 03/09/2018 12:49 [facility] COMPARISON: No previous studies available for comparison. INDICATIONS : left lateral rib pain, fell MEDICAL HISTORY : Seizures. Hypertension. SURGICAL HISTORY : None. ENCOUNTER: Initial ACUITY: 1 day PAIN SCORE: 10/10 LOCATION: Left Ribs FINDINGS: Multiple views of the left ribs were performed. There is no evidence of displaced fracture. No dest ructive lesions or areas of periosteal thickening are seen. Expiratory view of the chest is negative for pneumothorax. The mediastinal structures are midline. CONCLUSION: Negative study with no evidence of rib fracture or pneumothorax. Jeramy Schuster MD on March 09, 2018 at 13:17 Board Certified Radiologist. This report was verified electronically.
[2018-03-09] MEDS ORDERED: IBUP-232 PO (13:28)
[2018-03-09] MEDS ORDERED: HYDR-3516 PO (13:28)
[2018-03-09] MEDS ORDERED: ACETAMINOPHEN/HYDROcodone 325 MG/5 MG TAB PO ONE (13:30)
== END 2018-03-09 13:51 | disposition home or self-care (01) ==
LOC: NEPD 12:21
DX: S20.212A Contusion of left front wall of thorax, initial encounter (principal); J45.909 Unspecified asthma, uncomplicated; I10 Essential (primary) hypertension; W01.198A Fall on same level from slipping, tripping and stumbling with subsequent striking against other object, initial encounter; Y93.E5 Activity, floor mopping and cleaning; Y92.000 Kitchen of unspecified non-institutional (private) residence as the place of occurrence of the external cause
CPT/HCPCS: 71101; 96372; 99283; J1885

== ENCOUNTER 2018-06-14 13:49 | Inpatient (IN) ==
[2018-06-14 14:21] LABS: Baso # (Auto) 0.1 th/mm3 (0.0-0.2); Baso % (Auto) 0.6 % (0.0-2.0); Eos % (Auto) 0.1 % (0.0-4.0); Hematocrit 42.6 % (35.0-46.0); Hemoglobin 14.8 gm/dL (11.6-15.3); Lymph # (Auto) 1.6 th/mm3 (1.0-4.8); Lymph % (Auto) 10.9 % (9.0-44.0); Mean Corpuscular HGB Conc 34.6 % (32.0-36.0); Mean Corpuscular Hemoglobin 31.6 pg (27.0-34.0); Mean Corpuscular Volume 91.3 fL (80.0-100.0); Mean Platelet Volume 8.2 fL (7.0-11.0); Mono # (Auto) 0.9 th/mm3 (0.0-0.9); Mono % (Auto) 6.1 % (0.0-8.0); Neut # (Auto) 11.8 th/mm3 (1.8-7.7); Neut % (Auto) 82.3 % (16.0-70.0); Platelet Count 326 th/mm3 (150-450); Red Blood Count 4.67 mil/mm3 (4.00-5.30); White Blood Count 14.4 th/mm3 (4.0-11.0)
[2018-06-14] MEDS ORDERED: Sod Chloride 0.9% Inj 1,000 ML IV.SIG ONE ×2 (14:26→16:48)
[2018-06-14] MEDS ORDERED: Famotidine PF Inj 20 MG/2 ML Vial IV.PUSH ONE (14:32)
[2018-06-14] MEDS ORDERED: Morphine Inj 4 MG/ML Vial IV.PUSH ONE (14:32)
[2018-06-14] MEDS ORDERED: Aluminum/Magnesium/Simethacone Susp 30 ML UDC PO ONE (14:32)
[2018-06-14] MEDS ORDERED: Pantoprazole Inj 40 MG Vial IV.PUSH ONE (14:32)
[2018-06-14 15:10] LABS: Alanine Aminotransferase 20 U/L (10-53); Albumin 4.5 g/dL (3.4-5.0); Alkaline Phosphatase 60 U/L (45-117); Anion Gap 12 meq/L (5-15); Aspartate Aminotransferase 4 U/L (15-37); Blood Urea Nitrogen 17 mg/dL (7-18); Carbon Dioxide 30.4 meq/L (21.0-32.0); Chloride 91 meq/L (98-107); Glomerular Filtration Rate 81 mL/min (>89); Glucose,Random 111 mg/dL (74-106); Sodium 133 meq/L (136-145); Total Protein 8.6 g/dL (6.4-8.2)
[2018-06-14 15:13] LABS: Potassium 2.8 meq/L (3.5-5.1)
--- NOTE | 2018-06-14 15:32 | ED ---
HPI General Chief complaint: Seizure Stated complaint: Abd pain Time Seen by Provider: 06/14/18 13:54 Source: patient and EMS Mode of arrival: EMS Limitations: no limitations History of Present Illness HPI narrative: 33-year-old female that presents to the ED for evaluation of seizure. Patient had allegedly a seizure today lasted less than 10 seconds. Patient reports that she has not been able to keep any of her medications down for almost a week now. Per patient is been having nausea vomiting and epigastric pain as well as diarrhea. She takes Keppra for her seizures but has not been able to keep anything down per patient for about a week. She has a history of chronic gastric issues and takes multiple medications. She per patient takes Zofran outpatient. She states that her pain currently is 4 out of 10 but basically she is more concerned about the nausea and vomit. She does report vomiting today. Per patient she denies hitting her head. Denies any urinary or bowel movement issues other than diarrhea. Denies any recent surgeries. No blood thinner use. Denies any numbness, tingling, weakness. Per patient she has not had a seizure in almost 3 months. She does not know which she follows with neurology. Related Data Home Medications Medication Instructions Recorded Confirmed amlodipine mg PO DAILY 06/14/18 carvedilol [Coreg] 3.125 mg PO BID 06/14/18 06/14/18 levetiracetam [Keppra] 1,000 mg PO Q12H 06/14/18 06/14/18 lisinopril 40 mg PO DAILY 06/14/18 06/14/18 Allergies Allergy/AdvReac Type Severity Reaction Status Date / Time No Known Allergies Allergy Unverified 06/14/18 14:56 Review of Systems ROS Unobtainable All other systems reviewed negative except as stated in HPI [facility] Medical History Medical History Anxiety (Acute) GERD (gastroesophageal reflux disease) (Acute) Hypertension (Acute) Seizures (Acute) Surgical History Surgical History Previous section (Acute) Social History Social History Substance History: No History of Abuse Smoking Status: Former smoker How Often Do You Have a Drink Containing Alcohol: Never Recent Travel in [facility] within the Last 8 Weeks: No Recent Out of Country Travel within the Last 8 Weeks: No Immunization History Tetanus Immunization: Unsure Hx Influenza Vaccine This Season: No Exam Narrative Exam Narrative: GENERAL: Well-appearing SKIN: Focused skin assessment warm/dry. HEAD: Atraumatic. Normocephalic. EYES: Pupils equal and round 4 mms reactive to light and accommodation. No scleral icterus. No injection or drainage. ENT: No nasal bleeding or discharge. Mucous membranes pink and moist. Tongue is midline. No uvula deviation. NECK: Trachea midline. No JVD. CARDIOVASCULAR: Regular rate and rhythm. No murmur appreciated. RESPIRATORY: No accessory muscle use. Clear to auscultation. Breath sounds equal bilaterally. GASTROINTESTINAL: Abdomen soft, non-tender, nondistended. Hepatic and splenic margins not palpable. MUSCULOSKELETAL: No obvious deformities. No clubbing. No cyanosis. No edema. Full range of motion of the upper and lower extremities bilaterally. 2+ pulses bilaterally. NEUROLOGICAL: Awake and alert. No obvious cranial nerve deficits. Motor grossly within normal limits. Normal speech. PSYCHIATRIC: Appropriate mood and affect; insight and judgment normal. Course Initial Documented Vital Signs Temperature 98.6 F 06/14/18 13:56 Pulse Rate 99 H 06/14/18 13:56 Respiratory Rate 18 06/14/18 13:56 Blood Pressure 141/84 H 06/14/18 13:56 Pulse Oximetry 100 06/14/18 13:56 Last Documented Vital Signs Temperature 98.6 F 06/14/18 13:56 Pulse Rate 95 H 06/14/18 17:45 Respiratory Rate 19 06/14/18 17:45 Blood Pressure 155/103 H 06/14/18 17:45 Pulse Oximetry 96 06/14/18 17:45 Medical Decision Making EMILIA Attestation EMILIA supervised visit: Yes Attestation: The history, exam, and medical decision-making in the associated midlevel provider note were completed with my assistance. I reviewed and agree with the findings presented. I attest that I had a [id number] encounter with the patient on the same day, and personally performed and documented my assessment and findings in the medical record. *My assessment and Findings: This is a 33-year-old female who has a history of seizure disorder who presents to the emergency department with nausea vomiting and diarrhea for several days unable to keep her Keppra down. The patient had a seizure prior to arrival and here in the emergency department. She was placed on a monitor and an IV was established. Labs demonstrate hypokalemia. She was given IV hydration and Ativan as well as loaded with Keppra. She will be placed in observation for hydration and symptomatic management. MDM Narrative Medical decision making narrative: 33-year-old female that presents to the ED for evaluation of possible seizure. Patient was properly examined and was found to have signs and symptoms consistent appears to be nausea vomiting diarrhea as well as seizure. Labs and fluids were ordered. Patient was given antiemetics. Before patient was medicated for anything for pain or nausea I was called into the room by 1 of the ED techs that just happened to be by the room. Patient had a full clonic tonic seizure that lasted less than a minute. Patient was given Ativan 2 mg. Patient did not follow his ahead. She was already on the bed with seizure precautions. My attending was made aware of this. Labs and imaging were ordered. Labs and imaging showed elevated lactic acid. Patient back to normal but very lethargic. My attending Dr bey recommends admission. Differential Diagnosis Differential Diagnosis: Seizure disorder versus epilepsy versus nausea and vomiting versus intractable nausea and vomiting versus hypokalemia versus recurrent seizures Medical Records Medical records reviewed: Yes I reviewed the patient's medical records. Lab Data Lab results reviewed: Yes I reviewed the patient's lab results. Lab results narrative: Alcohol negative. Result diagrams: 06/14/18 14:10 06/14/18 14:10 Lab Results 06/14/18 06/14/18 06/14/18 Range/Units 14:10 14:10 14:10 WBC 14.4 H (4.0-11.0) th/mm3 RBC 4.67 (4.00-5.30) mil/mm3 Hgb 14.8 (11.6-15.3) gm/dL Hct 42.6 (35.0-46.0) % MCV 91.3 (80.0-100.0) fL MCH 31.6 (27.0-34.0) pg MCHC 34.6 (32.0-36.0) % RDW 13.0 (11.6-17.2) % Plt Count 326 (150-450) th/mm3 MPV 8.2 (7.0-11.0) fL Neut % (Auto) 82.3 H (16.0-70.0) % Lymph % (Auto) 10.9 (9.0-44.0) % [place] % (Auto) 6.1 (0.0-8.0) % Eos % (Auto) 0.1 (0.0-4.0) % Baso % (Auto) 0.6 (0.0-2.0) % Neut # (Auto) 11.8 H (1.8-7.7) th/mm3 Lymph # (Auto) 1.6 (1.0-4.8) th/mm3 Greenlee # (Auto) 0.9 (0.0-0.9) th/mm3 Eos # (Auto) 0.0 (0.0-0.4) th/mm3 Baso # (Auto) 0.1 (0.0-0.2) th/mm3 WBC Differential . Differential Comment Auto diff final Sodium 133 L (136-145) meq/L Potassium 2.8 L* (3.5-5.1) meq/L Chloride 91 L (98-107) meq/L Carbon Dioxide 30.4 (21.0-32.0) meq/L Anion Gap 12 (5-15) meq/L BUN 17 (7-18) mg/dL Creatinine 0.95 (0.50-1.00) mg/dL Estimated GFR 81 L (>89) mL/min Random Glucose 111 H (74-106) mg/dL Lactic Acid (0.4-2.0) mmol/L Calcium 9.0 (8.5-10.1) mg/dL Total Bilirubin 1.2 H (0.2-1.0) mg/dL AST 4 L (15-37) U/L ALT 20 (10-53) U/L Alkaline Phosphatase 60 (45-117) U/L Total Protein 8.6 H (6.4-8.2) g/dL Albumin 4.5 (3.4-5.0) g/dL Lipase 100 (73-393) U/L TSH 1.130 (0.358-3.740) uIU/mL Urine Color (Yellw/Straw) Urine Clarity (Clear) Urine pH (5.0-8.5) Ur Specific [place] (1.002-1.035) Urine Protein (Neg-Trace) mg/dL Urine Glucose (UA) (Negative) mg/dL Urine Ketones (Negative) mg/dL Urine Occult Blood (Negative) Urine Nitrate (Negative) Urine Bilirubin (Negative) Urine Urobilinogen (Less than 2) mg/dL Ur Leukocyte Esterase (Negative) Urine RBC (0-3) /hpf Urine WBC (0-5) /hpf Ur Squamous Epith Cells (0-5) /hpf Hyaline Casts (0-3) /lpf Urine Mucus (Occasional) /lpf Micro UA Comment Urine Culture Comments Urine Opiates Screen (Neg) Ur Barbiturates Screen (Neg) Ur Amphetamines Screen (Neg) U Benzodiazepines Scrn (Neg) Urine Cocaine Screen (Neg) U Cannabinoids Screen (Neg) Serum Alcohol Less than 3 (0-5) mg/dL 06/14/18 06/14/18 06/14/18 Range/Units 15:29 15:29 15:44 WBC (4.0-11.0) th/mm3 RBC (4.00-5.30) mil/mm3 Hgb (11.6-15.3) gm/dL Hct (35.0-46.0) % MCV (80.0-100.0) fL MCH (27.0-34.0) pg MCHC (32.0-36.0) % RDW (11.6-17.2) % Plt Count (150-450) th/mm3 MPV (7.0-11.0) fL Neut % (Auto) (16.0-70.0) % Lymph % (Auto) (9.0-44.0) % [place] % (Auto) (0.0-8.0) % Eos % (Auto) (0.0-4.0) % Baso % (Auto) (0.0-2.0) % Neut # (Auto) (1.8-7.7) th/mm3 Lymph # (Auto) (1.0-4.8) th/mm3 [place] # (Auto) (0.0-0.9) th/mm3 Eos # (Auto) (0.0-0.4) th/mm3 Baso # (Auto) (0.0-0.2) th/mm3 WBC Differential Differential Comment Sodium (136-145) meq/L Potassium (3.5-5.1) meq/L Chloride (98-107) meq/L Carbon Dioxide (21.0-32.0) meq/L Anion Gap (5-15) meq/L BUN (7-18) mg/dL Creatinine (0.50-1.00) mg/dL Estimated GFR (>89) mL/min Random Glucose (74-106) mg/dL Lactic Acid 2.1 H (0.4-2.0) mmol/L Calcium (8.5-10.1) mg/dL Total Bilirubin (0.2-1.0) mg/dL AST (15-37) U/L ALT (10-53) U/L Alkaline Phosphatase (45-117) U/L Total Protein (6.4-8.2) g/dL Albumin (3.4-5.0) g/dL Lipase (73-393) U/L TSH (0.358-3.740) uIU/mL Urine Color Isa (Yellw/Straw) Urine Clarity Cloudy H (Clear) Urine pH 5.0 (5.0-8.5) Ur Specific [place] 1.024 (1.002-1.035) Urine Protein 100 H (Neg-Trace) mg/dL Urine Glucose (UA) 50 (Negative) mg/dL Urine Ketones 20 (Negative) mg/dL Urine Occult Blood Moderate H (Negative) Urine Nitrate Negative (Negative) Urine Bilirubin Negative (Negative) Urine Urobilinogen 2.0 H (Less than 2) mg/dL Ur Leukocyte Esterase Negative (Negative) Urine RBC 6 H (0-3) /hpf Urine WBC 5 (0-5) /hpf Ur Squamous Epith Cells 1 (0-5) /hpf Hyaline Casts 12 (0-3) /lpf Urine Mucus Many H (Occasional) /lpf Micro UA Comment Culture not ind Urine Culture Comments Culture not ind Urine Opiates Screen Neg (Neg) Ur Barbiturates Screen Neg (Neg) Ur Amphetamines Screen Neg (Neg) U Benzodiazepines Scrn Neg (Neg) Urine Cocaine Screen Neg (Neg) U Cannabinoids Screen Pos H (Neg) Serum Alcohol (0-5) mg/dL Imaging Data Attestation: I personally reviewed and interpreted this imaging study as follows : Radiologist's impression: Abdomen/Pelvis CT 06/14/18 14:32 CONCLUSION: Essentially unremarkable study. Discharge Plan Discharge Disposition Patient Disposition: 30 Still Patient Discharge Details Diagnosis: Epileptic seizure, Acute hypokalemia, Nausea & vomiting Physicians Team ED Provider: Carolina Bey ED Midlevel Provider: Reji Morrell Primary Care Provider: Johann Velasquez Attending Provider: Asad Flood Other Providers: Shailesh Sims Discharge Interventions Interventions: ED Discharge Assessment Last Done: 06/14/18 19:15 Status ED Status: Left Department Discharge Information Discharge Date/Time: 06/14/18 19:15
[2018-06-14] MEDS ORDERED: levETIRAcetam 1000mg/100mL Inj 100 ML IV.SIG ONE (15:56)
[2018-06-14 16:09] LABS: Bilirubin,Urine Negative (Negative); Clarity,Urine Cloudy (Clear); Color,Urine Amber (Yellw/Straw); Glucose,Urine (UA) 50 mg/dL (Negative); Hyaline Casts,Urine 12 /lpf (0-3); Leukocyte Esterase,Urine Negative (Negative); Mucus,Urine Many /lpf (Occasional); Nitrite,Urine Negative (Negative); Specific Gravity,Urine 1.024 (1.002-1.035); Squamous Epithelial Cell,Urine 1 /hpf (0-5)
--- NOTE | 2018-06-14 16:21 | CT ---
EXAM DATE: 06/14/2018 4:16 PM EDT AGE/SEX: 33 years / Female INDICATIONS: Abdomen pain. CLINICAL DATA: This is the patient's initial encounter. Patient reports that signs and symptoms have been present for 1 day and indicates a pain score of 5/10. MEDICAL/SURGICAL HISTORY: Hypertension. Gastroesophageal reflux disease. Seizures. None. ORAL CONTRAST: No oral contrast ingested. RADIATION DOSE: 13.42 CTDI (mGy) COMPARISON: No prior exams available for comparison. TECHNIQUE: Multiple contiguous axial images were obtained through the abdomen and pelvis following b olus infusion of 75 ml Omnipaque 350 (iohexol) nonionic water-soluble contrast as a single exam dos e. No oral contrast ingested. Using automated exposure control and adjustment of the mA and/or kV ac cording to patient size, radiation dose was kept as low as reasonably achievable to obtain optimal di agnostic quality images. DICOM format image data is available electronically for review and comparis on. FINDINGS: Abdomen CT: The liver, spleen, pancreas, kidneys, adrenals are unremarkable. There is no evidence for any appreci able pathological adenopathy, free fluid, or bowel obstruction. Pelvic CT: There is no evidence for mass, abscess formation, or any significant adenopathy within the pelvis. CONCLUSION: Essentially unremarkable study. Electronically signed by: Abram Torre MD 06/14/2018 4:20 PM EDT
[2018-06-14] MEDS ORDERED: Bisacodyl 10 MG Supp RECTAL PRN (17:04)
[2018-06-14 17:52] LABS: Amphetamine Screen,Urine Neg (Neg); Barbiturate Screen,Urine Neg (Neg); Cannabinoid Screen,Urine Pos (Neg); Cocaine Screen,Urine Neg (Neg)
[2018-06-14 18:03] LABS: Opiate Screen,Urine Neg (Neg)
[2018-06-14] MEDS: Sod Chloride 0.9% Inj 1,000 ML IV.CONT SCH (19:39)
--- NOTE | 2018-06-14 19:57 | P.HPIM ---
History of Present Illness Primary Care Physician: Johann Velasquez MD History of Present Illness: This is a 33-year-old female with a PMH of Seizure Disorder who was brought to the ER after episode of seizure. Patient states that she has been having ongoing nausea and vomiting for the last 3-4 days, which is usual for her when she has her menstruation, however she's been unable to take PO, including her medications. Reports she is otherwise compliant w/ meds, reports last seizure approx 3 months, follows regularly w/ her Neurologist in [place]. Denies abdominal pain, diarrhea, fever or chills. On arrival, BP 141/84, HR 99, O2 sat 100% on RA, Afebrile. WBC 14.4. K+ 2.8. GFR 81. Lactic Acid 2.1. UA negative for UTI. Urine Drug Screen positive for Marijuana. Alcohol negative. CT Abdomen/Pelvis with no acute findings. Pt currently AA&O. - Diagnosis (1) Seizure (2) Intractable nausea and vomiting (3) Hypokalemia Inpatient Certification: I certify that the inpatient services were ordered in accordance with Medicare regulations governing the order. This includes certification that hospital inpatient services are reasonable and necessary and in the case of services not specified as inpatient-only under 42 CFR 419.22(n), that they are appropriately provided as inpatient services in accordance to with the 2-midnight benchmark under 43 CFR 412.3(e) Estimated Total Length of Stay (Days): 2 Plans for Post Hospital Care: Not yet determined Review of Systems All other systems reviewed negative except as stated in HPI [facility] - History History Provided By: Patient - Medical History Medical History: Medical History (Last Reviewed 06/14/18 @ 15:30 by SAVAGE Tellez) Anxiety GERD (gastroesophageal reflux disease) Hypertension Seizures - Surgical History Surgical History: Surgical History (Last Reviewed 06/14/18 @ 15:30 by SAVAGE Tellez) Previous section - Tobacco History Second Hand Smoke Exposure: No Smoking Status: Former smoker - Alcohol History How Often Do You Have a Drink Containing Alcohol: Never - Substance Use History Substance History: No History of Abuse - Travel History Recent Travel in the [place] Within the Last 8 Weeks: No Recent Travel Out of the Country Within the Last 8 Weeks: No - Immunization History Tetanus Immunization: <5 Years Hx Influenza Vaccine This Season: No Medications and Allergies Active Medications: Active Medications Al Hydroxide/Mg Hydroxide (Milk Of Magnesia Liq) 30 ml PO Q12H PRN PRN Reason: Mild Constipation Bisacodyl (Dulcolax Supp) 10 mg RECTAL DAILY PRN PRN Reason: SEVERE CONSITIPATION Carvedilol (Coreg) 3.125 mg PO BID BINDU Sodium Chloride (Ns Inj) 1,000 mls @ 100 mls/hr IV.CONT .Q10H BINDU Last Admin: 06/14/18 19:39 Dose: 100 mls/hr Lactulose (Lactulose Liq) 30 ml PO DAILY PRN PRN Reason: SEVERE CONSITIPATION Levetiracetam (Keppra) 1,500 mg PO BID BINDU Lisinopril (Prinivil) 40 mg PO DAILY BINDU Prochlorperazine Edisylate (Compazine Inj) 10 mg IV.PUSH Q6H PRN PRN Reason: NAUSEA/VOMITING Sennosides (Senokot) 17.2 mg PO Q12H PRN PRN Reason: Moderate Constipation Allergies Allergy/AdvReac Type Severity Reaction Status Date / Time No Known Allergies Allergy Unverified 06/14/18 14:56 Home Medications Medication Instructions Recorded Confirmed Type amlodipine mg PO DAILY 06/14/18 History carvedilol [Coreg] 3.125 mg PO BID 06/14/18 06/14/18 History levetiracetam [Keppra] 1,000 mg PO Q12H 06/14/18 06/14/18 History lisinopril 40 mg PO DAILY 06/14/18 06/14/18 History Exam Vital signs: Vital Signs 06/14/18 13:56 06/14/18 17:45 06/14/18 19:15 Temperature 98.6 F Pulse Rate 99 H 95 H Respiratory Rate 18 19 16 Blood Pressure 141/84 H 155/103 H Pulse Oximetry 100 96 Intake & Output 06/14/18 06/14/18 06/15/18 06:59 18:59 06:59 Intake Total 1000 / 1000 30 / 30 Balance 1000 / 1000 30 / 30 Weight 94.801 kg Intake: IV 1000 / 1000 NS Inj 1,000 ML @ Wide Open IV. 1000 / 1000 SIG BOLUS ONE Rx#:[id number] Oral Other: # Voids 0 Narrative: PE: GENERAL: Very pleasant young black female in no acute distress. HEENT: PERRLA, EOMI. No scleral icterus or conjunctival pallor. No lid lag or facial droop. CARDIOVASCULAR: Regular rate and rhythm. No obvious murmurs to auscultation. No chest tenderness to palpation. RESPIRATORY: No obvious rhonchi or wheezing. Clear to auscultation. Breath sounds equal bilaterally. GASTROINTESTINAL: Abdomen soft, non-tender, nondistended. BS normal. MUSCULOSKELETAL: Extremities without clubbing, cyanosis, or edema. No obvious deformities. NEUROLOGICAL: Awake, alert and oriented x4. No focal neurologic deficits. Moving both upper and lower extremities spontaneously. Results - Labs CBC & Chem 7: 06/14/18 14:10 06/14/18 14:10 Labs: Short CBC 06/14/18 Range/Units 14:10 WBC 14.4 H (4.0-11.0) th/mm3 Hgb 14.8 (11.6-15.3) gm/dL Hct 42.6 (35.0-46.0) % Plt Count 326 (150-450) th/mm3 BMP 06/14/18 14:10 Sodium 133 L Potassium 2.8 L* Chloride 91 L Carbon Dioxide 30.4 BUN 17 Creatinine 0.95 Calcium 9.0 Liver Function 06/14/18 Range/Units 14:10 Total Bilirubin 1.2 H (0.2-1.0) mg/dL AST 4 L (15-37) U/L ALT 20 (10-53) U/L Alkaline Phosphatase 60 (45-117) U/L Albumin 4.5 (3.4-5.0) g/dL Urine 06/14/18 Range/Units 15:29 Urine Color Isa (Yellw/Straw) Urine Clarity Cloudy H (Clear) Urine pH 5.0 (5.0-8.5) Ur Specific [place] 1.024 (1.002-1.035) Urine Protein 100 H (Neg-Trace) mg/dL Urine Glucose (UA) 50 (Negative) mg/dL - Imaging Impressions Abdomen/Pelvis CT 06/14/18 14:32 CONCLUSION: Essentially unremarkable study. Caprini VTE Risk Assessment Caprini VTE Risk Assessment: No/Low Risk (score <= 1) Caprini Risk Assessment Model: Point Value = 1 Point Value = 2 Point Value = 3 Point Value = 5 Age 41-60 Minor surgery BMI > 25 kg/m2 Swollen legs Varicose veins or History of unexplained or recurrent spontaneous Oral contraceptives or hormone replacement Sepsis (< 1 month) Serious lung disease, including pneumonia (< 1 month) Abnormal pulmonary function Acute myocardial infarction Congestive heart failure (< 1 month) History of inflammatory bowel disease Medical patient at bed rest Age 61-74 Arthroscopic surgery Major open surgery (> 45 min) Laparoscopic surgery (> 45 min) Malignancy Confined to bed (> 72 hours) Immobilizing plaster cast Central venous access Age >= 75 History of VTE Family history of VTE Factor V Leiden Prothrombin [id number] Lupus anticoagulant Anticardiolipin antibodies Elevated serum homocysteine Heparin-induced thrombocytopenia Other congenital or acquired thrombophilia Stroke (< 1 month) Elective arthroplasty Hip, pelvis, or leg fracture Acute spinal cord injury (< 1 month) Prophylaxis Regimen: Total Risk Factor Score Risk Level Prophylaxis Regimen 0-1 Low Early ambulation 2 Moderate Order ONE of the following: *Sequential Compression Device (SCD) *Heparin 5000 units SQ BID 3-4 Higher Order ONE of the following medications: *Heparin 5000 units SQ TID *Enoxaparin/Lovenox 40 mg SQ daily (WT < 150 kg, CrCl > 30 mL/min) *Enoxaparin/Lovenox 30 mg SQ daily (WT < 150 kg, CrCl > 10-29 mL/min) *Enoxaparin/Lovenox 30 mg SQ BID (WT < 150 kg, CrCl > 30 mL/min) AND/OR *Sequential Compression Device (SCD) 5 or more Highest Order ONE of the following medications: *Heparin 5000 units SQ TID (Preferred with Epidurals) *Enoxaparin/Lovenox 40 mg SQ daily (WT < 150 kg, CrCl > 30 mL/min) *Enoxaparin/Lovenox 30 mg SQ daily (WT < 150 kg, CrCl > 10-29 mL/min) *Enoxaparin/Lovenox 30 mg SQ BID (WT < 150 kg, CrCl > 30 mL/min) AND *Sequential Compression Device (SCD) Assessment and Plan - Assessment (1) Seizure Code(s): R56.9 - Unspecified convulsions Status: Acute (2) Intractable nausea and vomiting Code(s): R11.2 - Nausea with vomiting, unspecified Status: Acute (3) Hypokalemia Code(s): E87.6 - Hypokalemia Status: Acute - Plan A/P: 1. Seizure: h/o Seizure Disorder, unable to take PO including Keppra due to ongoing nausea/vomiting for 3-4 days, otherwise compliant w/ meds and follow up w/ Neurologist in [place]. No further seizure activity, s/p Keppra 1gm IV in ER , will continue w/ Keppra IV bid until able to take PO. Consult Neurology for further recommendations/intervention. 2. Intractable NV: states symptoms typical for her when she has her menstruation, CT Abd/Pelvis w/ no acute findings, images reviewed. Analgesics/ antiemetics as needed. IVF for hydration. 3. Hypokalemia: K+ 2.8, will replace and recheck in am 4. DVT Prophylaxis: SCD/Teds 5. Social work for d/c planning as needed 6. Case discussed w/ ER physician at length, labs/records/imaging reviewed by me. H&P: Quality - VTE Deep Vein Thrombosis/Pulmonary Embolism Present on Admission: No
[2018-06-14] MEDS: levETIRAcetam 500 MG Tablet PO SCH (20:16)
[2018-06-15 07:16] LABS: Baso # (Auto) 0.1 th/mm3 (0.0-0.2); Baso % (Auto) 0.5 % (0.0-2.0); Eos % (Auto) 0.2 % (0.0-4.0); Hematocrit 35.8 % (35.0-46.0); Hemoglobin 12.1 gm/dL (11.6-15.3); Lymph % (Auto) 17.1 % (9.0-44.0); Mean Corpuscular HGB Conc 33.8 % (32.0-36.0); Mean Corpuscular Hemoglobin 31.5 pg (27.0-34.0); Mean Platelet Volume 8.3 fL (7.0-11.0); Mono # (Auto) 0.9 th/mm3 (0.0-0.9); Mono % (Auto) 7.6 % (0.0-8.0); Neut # (Auto) 8.5 th/mm3 (1.8-7.7); Neut % (Auto) 74.6 % (16.0-70.0); Platelet Count 262 th/mm3 (150-450); Red Blood Count 3.85 mil/mm3 (4.00-5.30); Red Cell Distribution Width 12.7 % (11.6-17.2); White Blood Count 11.5 th/mm3 (4.0-11.0)
[2018-06-15 07:50] LABS: Alanine Aminotransferase 17 U/L (10-53); Albumin 3.4 g/dL (3.4-5.0); Alkaline Phosphatase 47 U/L (45-117); Anion Gap 8 meq/L (5-15); Aspartate Aminotransferase 14 U/L (15-37); Blood Urea Nitrogen 13 mg/dL (7-18); Calcium 8.3 mg/dL (8.5-10.1); Chloride 103 meq/L (98-107); Glomerular Filtration Rate 88 mL/min (>89); Glucose,Random 97 mg/dL (74-106); Potassium 3.3 meq/L (3.5-5.1); Sodium 140 meq/L (136-145); Total Protein 6.5 g/dL (6.4-8.2)
[2018-06-15] MEDS: Sod Chloride 0.9% Inj 1,000 ML IV.CONT SCH (08:10)
[2018-06-15] MEDS: levETIRAcetam 500 MG Tablet PO SCH (08:10)
--- NOTE | 2018-06-15 08:13 | P.PN ---
Subjective Interval history: 33 years old feamle ambidexterous- but predominantly left handed female history of SZ last sz episode was about 3-4 years ago admitted for nausea and vomiting, dniees any fever she is currently on her 5th day of menstrual cycle and gets severe lower abdominal cramps and N/V with each cycle and was unable to hold down her Keppra also history of reflux -on PPI - and sounds like unable to tolerate NSAiD with her history of GERD admitted for acute seizure episode now feeling better, and feels hungry her significant other is in the room Physical Exam Vital signs: Vital Signs 06/14/18 13:56 06/14/18 17:45 06/14/18 19:15 Temperature 98.6 F Pulse Rate 99 H 95 H Respiratory Rate 18 19 16 Blood Pressure 141/84 H 155/103 H Pulse Oximetry 100 96 06/14/18 20:00 06/15/18 00:00 06/15/18 04:00 Temperature 99.6 F 98.4 F 98.2 F Pulse Rate 84 92 H 84 Respiratory Rate 18 18 18 Blood Pressure 145/90 H 134/74 124/73 Pulse Oximetry 100 98 99 Intake & Output 06/14/18 06/15/18 06/15/18 18:59 06:59 18:59 Intake Total 1000 / 1000 1130 / 1130 Balance 1000 / 1000 1130 / 1130 Weight 94.801 kg 94.3 kg Intake: IV 1000 / 1000 1100 / 1100 NS Inj 1,000 ML @ 100 mls/hr IV 1000 / 1000 .CONT .Q10H BINDU Rx#:[id number] NS Inj 1,000 ML @ Wide Open IV. 1000 / 1000 SIG BOLUS ONE Rx#:[id number] Keppra 1000 mg/100 mL Premix 100 / 100 100 ML @ 400 mls/hr IV.SIG ONCE ONE Rx#:[id number] Oral Other: # Voids 2 Date of Last Bowel Movement 06/14/18 Narrative: awake and alert, no acute distress anicteric, pupils reactive to light neck supple no nuchal rigidity'lungs- no rales regular rhythm abdomensoft, nontender extremities no edema neuro exam- a x o x 3, speech clear CN grossly intact 5/5 motor grossly no sensory deficits gait steady - Urinary Catheter Management Straight Cath placed during this visit: yes Reason for continuing: Not indwelling catheter Insertion date: 06/14/18 Insertion time: 15:26 Results - Labs CBC & Chem 7: 06/15/18 06:49 06/15/18 06:49 Laboratory Results - last 24 hr 06/14/18 06/14/18 06/14/18 14:10 14:10 14:10 WBC 14.4 H RBC 4.67 Hgb 14.8 Hct 42.6 MCV 91.3 MCH 31.6 MCHC 34.6 RDW 13.0 Plt Count 326 MPV 8.2 Neut % (Auto) 82.3 H Lymph % (Auto) 10.9 [place] % (Auto) 6.1 Eos % (Auto) 0.1 Baso % (Auto) 0.6 Neut # (Auto) 11.8 H Lymph # (Auto) 1.6 [place] # (Auto) 0.9 Eos # (Auto) 0.0 Baso # (Auto) 0.1 WBC Differential . Differential Comment Auto diff final Sodium 133 L Potassium 2.8 L* Chloride 91 L Carbon Dioxide 30.4 Anion Gap 12 BUN 17 Creatinine 0.95 Estimated GFR 81 L Random Glucose 111 H Lactic Acid Calcium 9.0 Total Bilirubin 1.2 H AST 4 L ALT 20 Alkaline Phosphatase 60 Total Protein 8.6 H Albumin 4.5 Lipase 100 TSH 1.130 Urine Color Urine Clarity Urine pH Ur Specific [place] Urine Protein Urine Glucose (UA) Urine Ketones Urine Occult Blood Urine Nitrate Urine Bilirubin Urine Urobilinogen Ur Leukocyte Esterase Urine RBC Urine WBC Ur Squamous Epith Cells Hyaline Casts Urine Mucus Micro UA Comment Urine Culture Comments Urine Opiates Screen Ur Barbiturates Screen Ur Amphetamines Screen U Benzodiazepines Scrn Urine Cocaine Screen U Cannabinoids Screen Serum Alcohol Less than 3 06/14/18 06/14/18 06/14/18 15:29 15:29 15:44 WBC RBC Hgb Hct MCV MCH MCHC RDW Plt Count MPV Neut % (Auto) Lymph % (Auto) [place] % (Auto) Eos % (Auto) Baso % (Auto) Neut # (Auto) Lymph # (Auto) [place] # (Auto) Eos # (Auto) Baso # (Auto) WBC Differential Differential Comment Sodium Potassium Chloride Carbon Dioxide Anion Gap BUN Creatinine Estimated GFR Random Glucose Lactic Acid 2.1 H Calcium Total Bilirubin AST ALT Alkaline Phosphatase Total Protein Albumin Lipase TSH Urine Color Isa Urine Clarity Cloudy H Urine pH 5.0 Ur Specific [place] 1.024 Urine Protein 100 H Urine Glucose (UA) 50 Urine Ketones 20 Urine Occult Blood Moderate H Urine Nitrate Negative Urine Bilirubin Negative Urine Urobilinogen 2.0 H Ur Leukocyte Esterase Negative Urine RBC 6 H Urine WBC 5 Ur Squamous Epith Cells 1 Hyaline Casts 12 Urine Mucus Many H Micro UA Comment Culture not ind Urine Culture Comments Culture not ind Urine Opiates Screen Neg Ur Barbiturates Screen Neg Ur Amphetamines Screen Neg U Benzodiazepines Scrn Neg Urine Cocaine Screen Neg U Cannabinoids Screen Pos H Serum Alcohol 06/15/18 06/15/18 06:49 06:49 WBC 11.5 H RBC 3.85 L Hgb 12.1 D Hct 35.8 MCV 93.0 MCH 31.5 MCHC 33.8 RDW 12.7 Plt Count 262 MPV 8.3 Neut % (Auto) 74.6 H Lymph % (Auto) 17.1 [place] % (Auto) 7.6 Eos % (Auto) 0.2 Baso % (Auto) 0.5 Neut # (Auto) 8.5 H Lymph # (Auto) 2.0 [place] # (Auto) 0.9 Eos # (Auto) 0.0 Baso # (Auto) 0.1 WBC Differential . Differential Comment Auto diff final Sodium 140 Potassium 3.3 L Chloride 103 D Carbon Dioxide 29.0 Anion Gap 8 BUN 13 Creatinine 0.88 Estimated GFR 88 L Random Glucose 97 Lactic Acid Calcium 8.3 L Total Bilirubin 1.0 AST 14 L ALT 17 Alkaline Phosphatase 47 Total Protein 6.5 D Albumin 3.4 D Lipase TSH Urine Color Urine Clarity Urine pH Ur Specific [place] Urine Protein Urine Glucose (UA) Urine Ketones Urine Occult Blood Urine Nitrate Urine Bilirubin Urine Urobilinogen Ur Leukocyte Esterase Urine RBC Urine WBC Ur Squamous Epith Cells Hyaline Casts Urine Mucus Micro UA Comment Urine Culture Comments Urine Opiates Screen Ur Barbiturates Screen Ur Amphetamines Screen U Benzodiazepines Scrn Urine Cocaine Screen U Cannabinoids Screen Serum Alcohol - Imaging Impressions Abdomen/Pelvis CT 06/14/18 14:32 CONCLUSION: Essentially unremarkable study. Assessment and Plan - Assessment (1) Seizure Code(s): R56.9 - Unspecified convulsions Status: Acute (2) Intractable nausea and vomiting Code(s): R11.2 - Nausea with vomiting, unspecified Status: Acute (3) Hypokalemia Code(s): E87.6 - Hypokalemia Status: Acute - Plan 33 years old ambidexterous, predominantly left handed 1. Acute Seizure- Grand mal type: h/o Seizure Disorder, unable to take PO including Keppra due to ongoing nausea/vomiting for 3-4 days, otherwise compliant w/ meds and follow up w/ Neurologist in [place]. No further seizure activity s/p Keppra 1gm IV in ER will continue w/ Keppra start po keppra bid Consulted Neurology for further recommendations/intervention. 2. Intractable NV: states symptoms typical for her when she has her menstruation- feeling better advance diet- start diet CT Abd/Pelvis w/ no acute findings,IVF for hydration. 3. Hypokalemia: K+ 3.3, will replace and recheck in am 4. History of GERD-continue on PPI bid. advise on reflux measures 5. History of HTN. continue on Coreg and ELIOT Increase activity DC planning- cleared by neuroology states her PCP- is Dr. Samir Velasquez DVT Prophylaxis: SCD/Teds- patient up and ambulating-- increae activity Social work for d/c planning as needed d/w her =- no driving, avoid heigts, avoid marijuana- patient denies use- states last use 3 months ago
[2018-06-15] MEDS ORDERED: Lisinopril 20 MG Tablet PO SCH (09:00)
[2018-06-15 09:35] VITALS: O2SAT 100
--- NOTE | 2018-06-15 11:58 | MB ---
cc: Shailesh Workman MD DATE: 06/15/2018 HISTORY OF PRESENT ILLNESS: She is a 33-year-old right-handed woman with hypertension, who has had seizures that seem to have started about 6 years ago, she had about 3-4 a year, because she has GE reflux and then around her period, she vomits, she does see GI for that, and also follows with, I believe Dr. Adrianne steven in [place]. She last saw him 6 months ago, which was her last seizure. What happens is, she has vomiting with some of her periods and GE reflux and then cannot keep her medication down, which is Keppra 1000 b.i.d. and then she has a seizure and that is what occurred now. PAST MEDICAL HISTORY: She was seen here, I had seen her also in 2017. She was on Dilantin at that time. There was some question about pseudoseizure by Dr. Howe and Dr. Berry in the past. REVIEW OF SYSTEMS: She denied any history of diabetes, hypercholesterolemia, ID, stent, angioplasty, AFib, Coumadin, CABG, renal, hepatic or pulmonary disease, thyroid disease, lupus, ulcer, cancer or stroke. She had a little bit of tingling in her fingertips and toes at times. SOCIAL HISTORY: Not a smoker, not a drinker. MEDICATIONS AT HOME: Lisinopril, Keppra 1000 b.i.d., Coreg, amlodipine, although I do not see any GI medications. CURRENT MEDICATIONS: Still on the Keppra, has been increased to 1500 b.i.d., Prinivil, Protonix, p.r.n. Compazine. PHYSICAL EXAMINATION: VITAL SIGNS: Afebrile, 81, 18, 117/56. NECK: There were no carotid bruits. HEART: Regular rate and rhythm. I did not detect a murmur. She is a little bit obese. NEUROLOGIC: Pupils are equal. Visual lozoya are full. Extraocular movements intact without nystagmus. Face is symmetric with normal sensation. Tongue was midline. There is no drift. She has normal strength in upper and lower extremities bilaterally. DTRs are slightly hyperreflexive on the left knee jerk compared to the right, but generally 2+ and symmetric throughout. Toes downgoing bilaterally. Pinprick intact, including the toes, hands and face. Proprioception was intact in the toes. Not ataxic on [id number]. Speech is fluent. She is not aphasic. There was no ankle clonus. Tone was normal throughout. LABORATORY DATA: CBC: White count was 14,000, has come down to 11.5 today. Urine drug screen positive for marijuana only. UA is negative. BMP: Potassium 2.8, sodium was 133, it is up to 140. GFR is normal. LFTs normal. TSH normal. She had an EEG done in 2016, was read as normal. She had a brain MRI done in 02/2017 that was normal with and without contrast. IMPRESSION/PLAN: History of seizures and some GI upset. When she vomits in these spells, which might last a week or two, she cannot keep her medications down, has a breakthrough seizure. I would recommend if the med team can try to find some way to prevent her from having these vomiting spells, it would be ideal, maybe have GI see her. Otherwise, neuro shahid, she will be discharged. She should not drive and she tells me she has not been driving. She should followup with Dr. Silver in [place], but she could be discharged neurologically. I defer to the med team on the GI situation. MD DEBRA Hilario/ZHAO , 11:27 AM , 11:37 AM
[2018-06-15 12:48] VITALS: BP 95/54; PULSE 98; RESP 16; TEMP 98.1
--- NOTE | 2018-06-15 14:48 | ECG ---
Date Performed: 06/14/2018 Time Performed: 15:52:12 PTAGE: 33 years EKG: Sinus rhythm WITH SHORT VT INTERVAL MODERATE ST DEPRESSION ABNORMAL ECG Since PREVIOUS TRACING , no significant change noted PREVIOUS TRACIN12/16/2017 20.29 DOCTOR: Miguel Angel Kinsey Interpretating Date/Time 06/15/2018 14:46:20
== END 2018-06-15 19:16 | disposition home or self-care (01) ==
LOC: NEDA 13:49 → NEPE 13:49 → NEDA 19:15 → NEPGCP 19:27 → N05 21:18
PROVIDERS: ADMIT Internal Medicine; ATTEND Internal Medicine

== ENCOUNTER 2018-07-05 11:51 | Inpatient (IN) ==
[2018-07-05] MEDS ORDERED: Sod Chloride 0.9% Inj 1,000 ML IV.SIG ONE (11:58)
[2018-07-05] MEDS ORDERED: levETIRAcetam 1000mg/100mL Inj 100 ML IV.SIG ONE (11:58)
--- NOTE | 2018-07-05 12:25 | ED ---
HPI General Chief Complaint: Seizure Stated Complaint: Poss Seizures Time Seen by Provider: 07/05/18 11:56 Source: patient Mode of arrival: EMS Limitations: other History of Present Illness HPI Narrative: The patient is a 33-year-old -[place] female who presents to the emergency department for seizure. According to EMS the patient has had multiple seizures at home, also had nausea and vomiting at home since 1 AM. EMS states when they arrived the patient was actively having a seizure and was administered Versed 2 mg intramuscularly. EMS states the patient had another seizure in route to the hospital. Upon arrival the patient was postictal, heart rate in the 80s, was slow to respond to questions. Patient was able to tell me she takes Keppra twice a day, however, was unable to tell me the dose. The patient did not take her Keppra this morning secondary to persistent nausea and vomiting since last night. The patient denies any chest pain, shortness of breath, or abdominal pain. MD complaint: seizure Onset (ago): minute(s) Description of Episode: tonic-clonic movement and post-event confusion -: second(s) Witnessed: yes - by EMS Trauma: No Seizure History: known seizure disorder Place: home Possible Precipitating Event: none Treatments prior to arrival: benzodiazepines Related Data Home Medications Medication Instructions Recorded Confirmed amlodipine mg PO DAILY 06/14/18 carvedilol [Coreg] 3.125 mg PO BID 06/14/18 06/14/18 levetiracetam [Keppra] 1,000 mg PO Q12H 06/14/18 06/14/18 lisinopril 40 mg PO DAILY 06/14/18 06/14/18 Allergies Allergy/AdvReac Type Severity Reaction Status Date / Time No Known Allergies Allergy Unverified 06/14/18 14:56 Review of Systems ROS: all other systems reviewed are negative [facility] Social History Social History Substance History: No History of Abuse and Unable to Obtain Second Hand Smoke Exposure: No Smoking Status: Unknown if ever smoked How Often Do You Have a Drink Containing Alcohol: Unable to Obtain Recent Travel in [place] within the Last 8 Weeks: No Recent Out of Country Travel within the Last 8 Weeks: No Exam Narrative Exam Narrative: GENERAL: Awake, lethargic, postictal 33-year-old female who appears her stated age and is in no acute respiratory distress. SKIN: Focused skin assessment warm/dry. HEAD: Atraumatic. Normocephalic. EYES: Pupils equal and round. 4 mm bilateral and reactive. EOMs are intact. ENT: No nasal bleeding or discharge. Mucous membranes pink and moist. Positive gag reflex. NECK: Trachea midline. No JVD. CARDIOVASCULAR: Regular rate and rhythm. No murmur appreciated. Heart rate in the 70s. RESPIRATORY: No accessory muscle use. Clear to auscultation. Breath sounds equal bilaterally. GASTROINTESTINAL: Abdomen soft, non-tender, nondistended. MUSCULOSKELETAL: No obvious deformities. No clubbing. No cyanosis. No edema. NEUROLOGICAL: Awake, lethargic, postictal. Moves all 4 extremities. PSYCHIATRIC: Unable to assess. Course Initial Documented Vital Signs Temperature 98.4 F 07/05/18 12:30 Pulse Rate 77 07/05/18 12:30 Respiratory Rate 18 07/05/18 12:30 Blood Pressure 144/105 H 07/05/18 12:30 Pulse Oximetry 98 07/05/18 12:30 Last Documented Vital Signs Temperature 98.4 F 07/05/18 12:30 Pulse Rate 76 07/05/18 14:08 Respiratory Rate 18 07/05/18 14:08 Blood Pressure 167/72 H 07/05/18 14:08 Pulse Oximetry 100 07/05/18 14:28 Medical Decision Making [facility] Narrative Medical decision making narrative: IV was established, labs are drawn and sent, and the patient was placed on cardiac telemetry monitoring and continuous pulse oximetry monitoring. EKG was ordered and interpreted. The patient was initially administered Versed by EMS in the field and then Ativan by nursing staff upon arrival as the patient appear to be having a seizure. The patient then appeared postictal, was administered Keppra 1000 mg intravenously. Electrolytes were sent to lab. The patient's laboratory evaluation is essentially unremarkable. The patient was reassessed at 1:45 PM, she was now awake and alert. The patient complained of nausea and abdominal cramping. Therefore, the patient was administered Zofran and Bentyl p.o. The patient was reevaluated at 1:58 PM, she had nausea and vomiting after Zofran and Bentyl were administered. Therefore, the patient was administered Zofran intravenously and Bentyl IM. The patient was reassessed 40 minutes later , still had nausea. The patient was given a p.o. challenge, once again had vomiting. The patient was then administered Reglan. The patient had intractable nausea and vomiting after 3 doses of antiemetics, is unable to keep her seizure medications down. Therefore, the patient will be 23 hour observation for IV fluids and antiemetics. The on-call medical service was paged for 23 hour observation. Medical Screen Exam Complete: Yes Emergency Medical Condition: Yes Differential Diagnosis Differential Diagnosis: Differential diagnosis includes status epilepticus, seizure disorder, noncompliance, hypocalcemia, hyponatremia, electrolyte abnormality, rhabdomyolysis. Lab Data Result diagrams: 07/05/18 12:33 07/05/18 12:33 Lab Results 07/05/18 07/05/18 07/05/18 Range/Units 12:33 12:33 12:33 WBC 8.7 (4.0-11.0) th/mm3 RBC 4.19 (4.00-5.30) mil/mm3 Hgb 13.6 (11.6-15.3) gm/dL Hct 40.4 (35.0-46.0) % MCV 96.4 (80.0-100.0) fL MCH 32.4 (27.0-34.0) pg MCHC 33.6 (32.0-36.0) % RDW 14.2 (11.6-17.2) % Plt Count 271 (150-450) th/mm3 MPV 7.9 (7.0-11.0) fL Neut % (Auto) 91.7 H (16.0-70.0) % Lymph % (Auto) 5.6 L (9.0-44.0) % [place] % (Auto) 2.2 (0.0-8.0) % Eos % (Auto) 0.0 (0.0-4.0) % Baso % (Auto) 0.5 (0.0-2.0) % Neut # (Auto) 8.0 H (1.8-7.7) th/mm3 Lymph # (Auto) 0.5 L (1.0-4.8) th/mm3 [place] # (Auto) 0.2 (0.0-0.9) th/mm3 Eos # (Auto) 0.0 (0.0-0.4) th/mm3 Baso # (Auto) 0.0 (0.0-0.2) th/mm3 WBC Differential . Differential Comment Auto diff final Sodium 141 (136-145) meq/L Potassium 3.8 (3.5-5.1) meq/L Chloride 109 H (98-107) meq/L Carbon Dioxide 21.0 (21.0-32.0) meq/L Anion Gap 11 (5-15) meq/L BUN 10 (7-18) mg/dL Creatinine 0.65 (0.50-1.00) mg/dL Estimated GFR Greater than 89 (>89) mL/min Random Glucose 135 H (74-106) mg/dL Lactic Acid 1.6 (0.4-2.0) mmol/L Calcium 9.0 (8.5-10.1) mg/dL Magnesium 1.9 (1.5-2.5) mg/dL Total Bilirubin 0.4 (0.2-1.0) mg/dL AST 16 (15-37) U/L ALT 28 (10-53) U/L Alkaline Phosphatase 64 (45-117) U/L Total Protein 8.3 H (6.4-8.2) g/dL Albumin 4.1 (3.4-5.0) g/dL Lipase (73-393) U/L 07/05/18 Range/Units 12:33 WBC (4.0-11.0) th/mm3 RBC (4.00-5.30) mil/mm3 Hgb (11.6-15.3) gm/dL Hct (35.0-46.0) % MCV (80.0-100.0) fL MCH (27.0-34.0) pg MCHC (32.0-36.0) % RDW (11.6-17.2) % Plt Count (150-450) th/mm3 MPV (7.0-11.0) fL Neut % (Auto) (16.0-70.0) % Lymph % (Auto) (9.0-44.0) % [place] % (Auto) (0.0-8.0) % Eos % (Auto) (0.0-4.0) % Baso % (Auto) (0.0-2.0) % Neut # (Auto) (1.8-7.7) th/mm3 Lymph # (Auto) (1.0-4.8) th/mm3 [place] # (Auto) (0.0-0.9) th/mm3 Eos # (Auto) (0.0-0.4) th/mm3 Baso # (Auto) (0.0-0.2) th/mm3 WBC Differential Differential Comment Sodium (136-145) meq/L Potassium (3.5-5.1) meq/L Chloride (98-107) meq/L Carbon Dioxide (21.0-32.0) meq/L Anion Gap (5-15) meq/L BUN (7-18) mg/dL Creatinine (0.50-1.00) mg/dL Estimated GFR (>89) mL/min Random Glucose (74-106) mg/dL Lactic Acid (0.4-2.0) mmol/L Calcium (8.5-10.1) mg/dL Magnesium (1.5-2.5) mg/dL Total Bilirubin (0.2-1.0) mg/dL AST (15-37) U/L ALT (10-53) U/L Alkaline Phosphatase (45-117) U/L Total Protein (6.4-8.2) g/dL Albumin (3.4-5.0) g/dL Lipase 69 L (73-393) U/L ECG Data EKG Prior to Arrival: No Attestation: I personally reviewed and interpreted this ECG as follows: Interpretation: EKG reveals sinus rhythm with sinus arrhythmia. No ischemic changes noted. Discharge Plan Discharge Disposition Patient Disposition: 30 Still Patient Discharge Condition Condition: Stable Discharge Details Diagnosis: Seizure, Nausea & vomiting Physicians Team ED Provider: Luca Parikh Primary Care Provider: Johann Velasquez Rxs /Orders / Referrals /Forms Prescriptions: No Action amlodipine 5 mg Tablet PO DAILY RF: 0 carvedilol [Coreg] 3.125 mg Tablet 3.125 mg PO BID RF: 0 lisinopril 40 mg Tablet 40 mg PO DAILY RF: 0 levetiracetam [Keppra] 1,000 mg Tablet 1,000 mg PO Q12H RF: 0 Discharge Interventions Interventions: Vital Signs Last Done: 07/05/18 14:08 Status ED Status: Pending Admission
[2018-07-05 12:45] LABS: Baso % (Auto) 0.5 % (0.0-2.0); Hematocrit 40.4 % (35.0-46.0); Hemoglobin 13.6 gm/dL (11.6-15.3); Lymph # (Auto) 0.5 th/mm3 (1.0-4.8); Lymph % (Auto) 5.6 % (9.0-44.0); Mean Corpuscular HGB Conc 33.6 % (32.0-36.0); Mean Corpuscular Hemoglobin 32.4 pg (27.0-34.0); Mean Corpuscular Volume 96.4 fL (80.0-100.0); Mean Platelet Volume 7.9 fL (7.0-11.0); Mono # (Auto) 0.2 th/mm3 (0.0-0.9); Mono % (Auto) 2.2 % (0.0-8.0); Neut % (Auto) 91.7 % (16.0-70.0); Platelet Count 271 th/mm3 (150-450); Red Blood Count 4.19 mil/mm3 (4.00-5.30); Red Cell Distribution Width 14.2 % (11.6-17.2); White Blood Count 8.7 th/mm3 (4.0-11.0)
[2018-07-05 13:06] LABS: Alanine Aminotransferase 28 U/L (10-53); Albumin 4.1 g/dL (3.4-5.0); Anion Gap 11 meq/L (5-15); Aspartate Aminotransferase 16 U/L (15-37); Blood Urea Nitrogen 10 mg/dL (7-18); Chloride 109 meq/L (98-107); Glomerular Filtration Rate Greater Than 89 mL/min (>89); Glucose,Random 135 mg/dL (74-106); Magnesium 1.9 mg/dL (1.5-2.5); Potassium 3.8 meq/L (3.5-5.1); Sodium 141 meq/L (136-145)
[2018-07-05 13:08] LABS: Alkaline Phosphatase 64 U/L (45-117); Total Protein 8.3 g/dL (6.4-8.2)
[2018-07-05] MEDS ORDERED: Dicyclomine Inj 20 MG/2 ML Ampul IM ONE (13:58)
[2018-07-05] MEDS ORDERED: Acetaminophen 325 MG Tablet PO PRN (17:10)
--- NOTE | 2018-07-05 17:19 | P.HPIM ---
History of Present Illness Primary Care Physician: Johann Velasquez MD Chief Complaint: Seizure, N/V History of Present Illness: The patient is a 33-year-old female with a past medical history significant for seizure disorder as well as cyclical episodes of nausea and vomiting who is presenting to the hospital following a seizure. The patient states that at 3 AM she woke up and started vomiting. The patient does not remember much else. She states the next thing she knows the ambulance was at her house. She says she has had episodes of vomiting and seizures in the past. She was in the hospital recently for this. The patient is complaining of significant abdominal pain. She rates the pain as a 10 out of 10 in severity. She says it is located in her upper stomach. She feels like she has acid reflux. She is very nauseous and has been vomiting recently. She states the nausea medications have not worked. She says she generally gets hiccups with this which she is currently experiencing. She endorses weakness. She denies any recent fevers. She states that these cyclical episodes of nausea and vomiting and abdominal pain come with her period. She has seen an [facility] for this but they have not found a reason for her symptoms. She said she was supposed to follow-up with her advertising copy writer who is located in the [place]. Inpatient Certification: I certify that the inpatient services were ordered in accordance with Medicare regulations governing the order. This includes certification that hospital inpatient services are reasonable and necessary and in the case of services not specified as inpatient-only under 42 CFR 419.22(n), that they are appropriately provided as inpatient services in accordance to with the 2-midnight benchmark under 43 CFR 412.3(e) Estimated Total Length of Stay (Days): 2 Plans for Post Hospital Care: Home Review of Systems All other systems reviewed negative except as stated in HPI PMFSH - History History Provided By: Patient - Medical History Medical History: Medical History (Last Reviewed 06/14/18 @ 15:30 by SAVAGE Tellez) Anxiety GERD (gastroesophageal reflux disease) Hypertension Seizures - Surgical History Surgical History: Surgical History (Last Reviewed 06/14/18 @ 15:30 by SAVAGE Tellez) Previous section - Tobacco History Second Hand Smoke Exposure: No Tobacco Use In Past 30 Days: No Smoking Status: Never smoker - Alcohol History How Often Do You Have a Drink Containing Alcohol: Never - Substance Use History Substance History: Active Abuse - Substance Use Type Marijuana Status: Active - Travel History Recent Travel in the USA Within the Last 8 Weeks: No Recent Travel Out of the Country Within the Last 8 Weeks: No - Immunization History Tetanus Immunization: Unsure Hx Influenza Vaccine This Season: No Medications and Allergies Active Medications: Active Medications Acetaminophen (Tylenol) 650 mg PO Q4H PRN PRN Reason: Temp > 100.4 Amlodipine Besylate (Norvasc) 5 mg PO DAILY [facility] Carvedilol (Coreg) 3.125 mg PO BID [facility] Potassium Chloride/Dextrose/Sod Cl (D5w/1/2ns + Kcl 20 Meq Inj) 1,000 mls @ 100 mls/hr IV.CONT .Q10H [facility] Morphine Sulfate (Morphine Inj) 4 mg IV.PUSH Q4H PRN PRN Reason: pain 3-10 Non-Formulary Medication (Levetiracetam [Keppra]) 1,000 mg PO Q12H [facility] Non-Formulary Medication (Lisinopril [Lisinopril]) 40 mg PO DAILY [facility] Pantoprazole Sodium (Protonix Inj) 40 mg IV.PUSH Q24H [facility] Prochlorperazine Edisylate (Compazine Inj) 10 mg IV.PUSH Q6H PRN PRN Reason: NAUSEA Senna/Docusate Sodium (Roxanne-Colace) 1 tab PO BID [facility] Sodium Chloride (Ns Flush) 2 ml IV.FLUSH PRN PRN PRN Reason: FLUSH AFTER USING IV ACCESS Allergies Allergy/AdvReac Type Severity Reaction Status Date / Time No Known Allergies Allergy Unverified 06/14/18 14:56 Home Medications Medication Instructions Recorded Confirmed Type amlodipine mg PO DAILY 06/14/18 History carvedilol [Coreg] 3.125 mg PO BID 06/14/18 06/14/18 History levetiracetam [Keppra] 1,000 mg PO Q12H 06/14/18 06/14/18 History lisinopril 40 mg PO DAILY 06/14/18 06/14/18 History Exam Vital signs: Vital Signs 07/05/18 12:30 07/05/18 12:33 07/05/18 14:08 Temperature 98.4 F Pulse Rate 77 79 76 Respiratory Rate 18 18 18 Blood Pressure 144/105 H 188/98 H 167/72 H Pulse Oximetry 98 100 100 07/05/18 14:28 Temperature Pulse Rate Respiratory Rate Blood Pressure Pulse Oximetry 100 Intake & Output 07/04/18 07/05/18 07/05/18 18:59 06:59 18:59 Weight 99.79 kg Narrative: GENERAL: Actively vomiting. SKIN: Focused skin assessment warm/dry. HEAD: Atraumatic. Normocephalic. EYES: Pupils equal and round. 4 mm bilateral and reactive. EOMs are intact. ENT: No nasal bleeding or discharge. Mucous membranes pink and moist. NECK: Trachea midline. No JVD. CARDIOVASCULAR: Regular rate and rhythm. No murmur appreciated. RESPIRATORY: No accessory muscle use. Clear to auscultation. Breath sounds equal bilaterally. GASTROINTESTINAL: Abdomen soft, tender in the epigastric area, nondistended. MUSCULOSKELETAL: No obvious deformities. No clubbing. No cyanosis. No edema. NEUROLOGICAL: Awake, lethargic. Moves all 4 extremities. Results - Labs CBC & Chem 7: 07/05/18 12:33 07/05/18 12:33 Labs: Short CBC 07/05/18 Range/Units 12:33 WBC 8.7 (4.0-11.0) th/mm3 Hgb 13.6 (11.6-15.3) gm/dL Hct 40.4 (35.0-46.0) % Plt Count 271 (150-450) th/mm3 BMP 07/05/18 12:33 Sodium 141 Potassium 3.8 Chloride 109 H Carbon Dioxide 21.0 BUN 10 Creatinine 0.65 Calcium 9.0 Liver Function 07/05/18 Range/Units 12:33 Total Bilirubin 0.4 (0.2-1.0) mg/dL AST 16 (15-37) U/L ALT 28 (10-53) U/L Alkaline Phosphatase 64 (45-117) U/L Albumin 4.1 (3.4-5.0) g/dL Caprini VTE Risk Assessment Caprini VTE Risk Assessment: Moderate/High Risk (score >= 2) Caprini Risk Assessment Model: Point Value = 1 Point Value = 2 Point Value = 3 Point Value = 5 Age 41-60 Minor surgery BMI > 25 kg/m2 Swollen legs Varicose veins or History of unexplained or recurrent spontaneous Oral contraceptives or hormone replacement Sepsis (< 1 month) Serious lung disease, including pneumonia (< 1 month) Abnormal pulmonary function Acute myocardial infarction Congestive heart failure (< 1 month) History of inflammatory bowel disease Medical patient at bed rest Age 61-74 Arthroscopic surgery Major open surgery (> 45 min) Laparoscopic surgery (> 45 min) Malignancy Confined to bed (> 72 hours) Immobilizing plaster cast Central venous access Age >= 75 History of VTE Family history of VTE Factor V Leiden Prothrombin [id number] Lupus anticoagulant Anticardiolipin antibodies Elevated serum homocysteine Heparin-induced thrombocytopenia Other congenital or acquired thrombophilia Stroke (< 1 month) Elective arthroplasty Hip, pelvis, or leg fracture Acute spinal cord injury (< 1 month) Prophylaxis Regimen: Total Risk Factor Score Risk Level Prophylaxis Regimen 0-1 Low Early ambulation 2 Moderate Order ONE of the following: *Sequential Compression Device (SCD) *Heparin 5000 units SQ BID 3-4 Higher Order ONE of the following medications: *Heparin 5000 units SQ TID *Enoxaparin/Lovenox 40 mg SQ daily (WT < 150 kg, CrCl > 30 mL/min) *Enoxaparin/Lovenox 30 mg SQ daily (WT < 150 kg, CrCl > 10-29 mL/min) *Enoxaparin/Lovenox 30 mg SQ BID (WT < 150 kg, CrCl > 30 mL/min) AND/OR *Sequential Compression Device (SCD) 5 or more Highest Order ONE of the following medications: *Heparin 5000 units SQ TID (Preferred with Epidurals) *Enoxaparin/Lovenox 40 mg SQ daily (WT < 150 kg, CrCl > 30 mL/min) *Enoxaparin/Lovenox 30 mg SQ daily (WT < 150 kg, CrCl > 10-29 mL/min) *Enoxaparin/Lovenox 30 mg SQ BID (WT < 150 kg, CrCl > 30 mL/min) AND *Sequential Compression Device (SCD) Assessment and Plan - Plan Seizure disorder Pt has history of seizures during episodes of nausea and vomiting. Recently evaluated by neurology. She received IV Keppra in the ED. -continue home seizure regimen. -neuro checks, seizure precautions. -EEG. -Ativan IV as needed. Nausea/ Abdominal pain The pt states these occur with her periods, which she says she is having now. -GI consult. -pain control and antiemetics as needed. -clear liquid diet. -MJ cessation instruction as may have cyclical vomiting syndrome. HTN Blood pressure has been elevated. -resume home meds. -Vasotec as needed. PPx: SCDs
[2018-07-05] MEDS ORDERED: levETIRAcetam 500 MG Tablet PO SCH (17:30)
[2018-07-05] MEDS: KCL 20 mEq/D5W/NaCl 0.45% Inj 1,000 ML IV.CONT SCH (17:32)
[2018-07-05] MEDS ORDERED: Pantoprazole Inj 40 MG Vial IV.PUSH SCH (18:00)
[2018-07-05] MEDS ORDERED: levETIRAcetam 1000mg/100mL Inj 100 ML IV.SIG SCH (19:00)
[2018-07-05] MEDS: Senna/Docusate Sodium 8.6/50 MG Tablet PO SCH (23:31)
[2018-07-06] MEDS: levETIRAcetam 1000mg/100mL Inj 100 ML IV.SIG SCH ×2 (00:54→12:44)
[2018-07-06] MEDS: KCL 20 mEq/D5W/NaCl 0.45% Inj 1,000 ML IV.CONT SCH ×2 (03:56→12:44)
[2018-07-06] MEDS: Morphine Inj 4 MG/ML Vial IV.PUSH PRN ×2 (03:57→11:12)
[2018-07-06 05:16] LABS: Baso % (Auto) 0.3 % (0.0-2.0); Hemoglobin 11.8 gm/dL (11.6-15.3); Lymph # (Auto) 1.4 th/mm3 (1.0-4.8); Lymph % (Auto) 11.3 % (9.0-44.0); Mean Corpuscular HGB Conc 33.8 % (32.0-36.0); Mean Corpuscular Hemoglobin 32.5 pg (27.0-34.0); Mean Platelet Volume 7.9 fL (7.0-11.0); Mono # (Auto) 0.9 th/mm3 (0.0-0.9); Mono % (Auto) 6.8 % (0.0-8.0); Neut # (Auto) 10.5 th/mm3 (1.8-7.7); Neut % (Auto) 81.6 % (16.0-70.0); Platelet Count 296 th/mm3 (150-450); Red Blood Count 3.64 mil/mm3 (4.00-5.30); Red Cell Distribution Width 14.2 % (11.6-17.2); White Blood Count 12.9 th/mm3 (4.0-11.0)
[2018-07-06 05:39] LABS: Albumin 3.5 g/dL (3.4-5.0); Anion Gap 9 meq/L (5-15); Aspartate Aminotransferase 15 U/L (15-37); Blood Urea Nitrogen 6 mg/dL (7-18); Calcium 8.3 mg/dL (8.5-10.1); Carbon Dioxide 23.8 meq/L (21.0-32.0); Chloride 107 meq/L (98-107); Glomerular Filtration Rate Greater Than 89 mL/min (>89); Glucose,Random 131 mg/dL (74-106); Potassium 3.3 meq/L (3.5-5.1); Sodium 140 meq/L (136-145)
[2018-07-06 05:42] LABS: Alanine Aminotransferase 21 U/L (10-53); Alkaline Phosphatase 49 U/L (45-117)
[2018-07-06] MEDS: amLODIPine 5 MG Tablet PO SCH (08:13)
[2018-07-06] MEDS: Senna/Docusate Sodium 8.6/50 MG Tablet PO SCH ×2 (08:13→21:24)
[2018-07-06] MEDS: Lisinopril 20 MG Tablet PO SCH (08:14)
--- NOTE | 2018-07-06 12:16 | P.CONGI ---
History of Present Illness Consult date: 07/05/18 Consult reason: Uncontrolled nausea, vomiting, abdominal pain Chief complaint: intractable Nausea/Vomiting,status epilepyicus History of Present Illness: This is an obese 33-year-old female who came to the ER on 07/05/2018 with chronic nausea vomiting and according to the record and patient after his seizure. Patient notes that some of her nausea and vomiting, chronic for the past 10 years seems to be related to her menstrual cycle and she does note some lower abdominal menstrual cramping. Patient notes that her nausea and vomiting symptoms have worsened over the past 4 years. patient states she has a history of seizures and thought that she had a seizure around 3:00 in the morning before brought to the hospital. Patient also notes symptoms of dyspepsia and burning at the 3 AM a minute before her admission. Patient states she has a history of GERD and usually takes omeprazole and Carafate without dyspepsia symptoms. Patient does note some epigastric tenderness to light palpation, mild bloating and belching noted and notes EGD approximately 3 years ago when the [facility]. Patient states history of constipation off and on last instance was November 2017 when she was sick for a few days and was unable to get up and move around. Gastroenterology has been consulted to assist with these current symptoms and plan of care. Patient notes that she was going to a GI physician somewhere in the [place] area but had not been able to get an appointment yet. Patient notes family history of colon cancer father diagnosed in his 50s. Patient states no previous colonoscopy performed. Currently patient denies any rectal bleeding or any hematemesis and no diarrhea or current constipation. Patient's history of seizures have been followed per neuro in the past but she states she has not seen anyone in a long time and was told last time she saw someone to stay on her meds. Labs show current hemoglobin 11.8, bilirubin and LFTs are normal, WBC count 12.9. Review of Systems All other systems reviewed negative except as stated in HPI PMFSH - History History Provided By: Patient - Medical History Medical History: Medical History (Last Reviewed 07/06/18 @ 06:38 by Ac Jones) Anxiety GERD (gastroesophageal reflux disease) Hypertension Seizures - Surgical History Surgical History: Surgical History (Last Reviewed 07/06/18 @ 06:38 by Ac Jones) Previous section - Tobacco History Second Hand Smoke Exposure: No Tobacco Use In Past 30 Days: No Smoking Status: Former smoker Tobacco Type: Cigarettes - Alcohol History How Often Do You Have a Drink Containing Alcohol: Never - Substance Use History Substance History: Active Abuse - Substance Use Type Marijuana Type: BAHMANJUANNA Status: Active Reason for Use: Calm Down - Travel History Recent Travel in the [place] Within the Last 8 Weeks: No Recent Travel Out of the Country Within the Last 8 Weeks: No - Immunization History Tetanus Immunization: Unsure Hx Influenza Vaccine This Season: No Medications and Allergies Active Medications: Active Medications Acetaminophen (Tylenol) 650 mg PO Q4H PRN PRN Reason: Temp > 100.4 Amlodipine Besylate (Norvasc) 5 mg PO DAILY [facility] Last Admin: 07/06/18 08:13 Dose: 5 mg Carvedilol (Coreg) 3.125 mg PO BID [facility] Last Admin: 07/06/18 08:13 Dose: 3.125 mg Enalaprilat (Vasotec Inj) 1.25 mg IV.PUSH Q6H PRN PRN Reason: SBP> OR = 180, DBP> OR = 100 Potassium Chloride/Dextrose/Sod Cl (D5w/1/2ns + Kcl 20 Meq Inj) 1,000 mls @ 100 mls/hr IV.CONT .Q10H [facility] Last Admin: 07/06/18 03:56 Dose: 100 mls/hr Levetiracetam (Keppra 1000 Mg/100 Ml Premix) 100 mls @ 400 mls/hr IV.SIG Q12H [facility] Last Infusion: 07/06/18 01:09 Dose: Infused Lisinopril (Prinivil) 40 mg PO DAILY [facility] Last Admin: 07/06/18 08:14 Dose: 40 mg Lorazepam (Ativan Inj) 1 mg IV.PUSH Q2H PRN PRN Reason: SEIZURES Morphine Sulfate (Morphine Inj) 4 mg IV.PUSH Q4H PRN PRN Reason: pain 3-10 Last Admin: 07/06/18 11:12 Dose: 4 mg Pantoprazole Sodium (Protonix Inj) 40 mg IV.PUSH Q24H [facility] Last Admin: 07/05/18 17:31 Dose: 40 mg Prochlorperazine Edisylate (Compazine Inj) 10 mg IV.PUSH Q6H PRN PRN Reason: NAUSEA Last Admin: 07/06/18 11:13 Dose: 10 mg Senna/Docusate Sodium (Roxanne-Colace) 1 tab PO BID [facility] Last Admin: 07/06/18 08:13 Dose: 1 tab Sodium Chloride (Ns Flush) 2 ml IV.FLUSH PRN PRN PRN Reason: FLUSH AFTER USING IV ACCESS Allergies Allergy/AdvReac Type Severity Reaction Status Date / Time No Known Allergies Allergy Unverified 06/14/18 14:56 Home Medications Medication Instructions Recorded Confirmed Type amlodipine mg PO DAILY 06/14/18 History carvedilol [Coreg] 3.125 mg PO BID 06/14/18 06/14/18 History levetiracetam [Keppra] 1,000 mg PO Q12H 06/14/18 07/05/18 History lisinopril 40 mg PO DAILY 06/14/18 06/14/18 History Exam Vital signs: Vital Signs 07/05/18 12:30 07/05/18 12:33 07/05/18 14:08 Temperature 98.4 F Pulse Rate 77 79 76 Respiratory Rate 18 18 18 Blood Pressure 144/105 H 188/98 H 167/72 H Pulse Oximetry 98 100 100 07/05/18 14:28 07/05/18 19:16 07/05/18 19:31 Temperature Pulse Rate 91 H 81 Respiratory Rate 18 16 Blood Pressure 161/83 H Pulse Oximetry 100 98 100 07/05/18 20:00 07/05/18 22:30 07/06/18 00:00 Temperature 100.3 F H 99.9 F H Pulse Rate 86 86 80 Respiratory Rate 18 18 Blood Pressure 172/96 H 174/102 H Pulse Oximetry 98 97 07/06/18 00:30 07/06/18 04:00 07/06/18 04:30 Temperature 99.0 F Pulse Rate 92 H 81 89 Respiratory Rate 18 Blood Pressure 157/87 H Pulse Oximetry 98 07/06/18 07:01 07/06/18 08:00 07/06/18 09:00 Temperature 98 F Pulse Rate 75 76 Respiratory Rate 12 20 Blood Pressure 124/65 Pulse Oximetry 97 Intake & Output 07/05/18 07/06/18 07/06/18 18:59 06:59 18:59 Intake Total 2200 / 2200 Balance 2200 / 2200 Weight 99.79 kg Intake: IV 2200 / 2200 D5W/1/2NS + KCL 20 mEq Inj 1, 1000 / 1000 000 ML @ 100 mls/hr IV.CONT . Q10H [facility] Rx#:[id number] NS Inj 1,000 ML @ Wide Open IV. 1000 / 1000 SIG BOLUS ONE Rx#:[id number] Keppra 1000 mg/100 mL Premix 200 / 200 100 ML @ 400 mls/hr IV.SIG Q12H [facility] Rx#:[id number] Other: # Voids 1 Date of Last Bowel Movement 07/04/18 07/04/18 - Routine HEENT Exam ENT: Present: mucous membranes moist - Routine Neck Exam Present: supple (Obese) - Routine Respiratory Exam Present: accessory muscle use (No obvious shortness of breath respirations even and unlabored) - Routine Cardiovascular Exam Present: S1, S2 - Routine Abdominal Exam Present: soft (Round, active bowel sounds, some mild epigastric tenderness and generalized bloating), distended (Mild) - Routine Skin Exam Present: intact - Routine Neurological Exam Present: alert Results - Labs CBC & Chem 7: 07/06/18 03:48 07/06/18 03:48 Labs: Laboratory Results - last 24 hr 07/05/18 07/05/18 07/05/18 12:33 12:33 12:33 WBC 8.7 RBC 4.19 Hgb 13.6 Hct 40.4 MCV 96.4 MCH 32.4 MCHC 33.6 RDW 14.2 Plt Count 271 MPV 7.9 Neut % (Auto) 91.7 H Lymph % (Auto) 5.6 L [place] % (Auto) 2.2 Eos % (Auto) 0.0 Baso % (Auto) 0.5 Neut # (Auto) 8.0 H Lymph # (Auto) 0.5 L [place] # (Auto) 0.2 Eos # (Auto) 0.0 Baso # (Auto) 0.0 WBC Differential . Differential Comment Auto diff final Sodium 141 Potassium 3.8 Chloride 109 H Carbon Dioxide 21.0 Anion Gap 11 BUN 10 Creatinine 0.65 Estimated GFR Greater than 89 Random Glucose 135 H Lactic Acid 1.6 Calcium 9.0 Magnesium 1.9 Total Bilirubin 0.4 AST 16 ALT 28 Alkaline Phosphatase 64 Total Protein 8.3 H Albumin 4.1 Lipase 07/05/18 07/06/18 07/06/18 12:33 03:48 03:48 WBC 12.9 H RBC 3.64 L Hgb 11.8 Hct 35.0 MCV 96.0 MCH 32.5 MCHC 33.8 RDW 14.2 Plt Count 296 MPV 7.9 Neut % (Auto) 81.6 H Lymph % (Auto) 11.3 [place] % (Auto) 6.8 Eos % (Auto) 0.0 Baso % (Auto) 0.3 Neut # (Auto) 10.5 H Lymph # (Auto) 1.4 [place] # (Auto) 0.9 Eos # (Auto) 0.0 Baso # (Auto) 0.0 WBC Differential . Differential Comment Auto diff final Sodium 140 Potassium 3.3 L Chloride 107 Carbon Dioxide 23.8 Anion Gap 9 BUN 6 L Creatinine 0.66 Estimated GFR Greater than 89 Random Glucose 131 H Lactic Acid Calcium 8.3 L Magnesium Total Bilirubin 0.5 AST 15 ALT 21 Alkaline Phosphatase 49 Total Protein 7.0 D Albumin 3.5 D Lipase 69 L Assessment and Plan (1) History of gastroesophageal reflux (GERD) Status: Acute Code(s): Z87.19 - Personal history of other diseases of the digestive system (2) Intractable nausea and vomiting Status: Acute Code(s): R11.2 - Nausea with vomiting, unspecified (3) Epigastric pain Status: Acute Code(s): R10.13 - Epigastric pain (4) Epigastric abdominal pain following cholangiogram Status: Acute Code(s): G89.18 - Other acute postprocedural pain; R10.13 - Epigastric pain (5) Gastroparesis Status: Acute Code(s): K31.84 - Gastroparesis - Plan Nausea and vomiting, abdominal bloating, belching, could be related to gastroparesis versus medications versus eating late at night versus patient's reflux. Patient also has nausea and vomiting around her seizures which could be related. History of GERD, patient takes omeprazole and Carafate and states minimal dyspepsia unless she is eating late at night or certain foods currently unknown. Patient did note a burning sensation of dyspepsia in her chest when she was awakened at around 3:00 in the morning before her admission to the hospital. Patient notes occasional constipation but this seems to be related more to her activity and diet, when she is sick patient noted change in her bowel habits back in November 2017 when she was inactive and not eating very much once she got back to her norm she states constipation resolved. Currently patient denies any diarrhea. Epigastric tenderness to light palpation on exam. Could be related to her dyspepsia and GERD Anemia unknown whether acute or chronic but patient currently denies any hematemesis or rectal bleeding. She does note some of her symptoms of nausea vomiting appear to be around her menstrual cycle which could be hormone related. Current labs 11.8 hemoglobin, WBC count 12.9, bilirubin and LFTs normal. Differential diagnosis could be reflux, GERG symptoms, dyspepsia symptoms, hormonal, medications, eating late at night and food related. Plan Diet recommend clear liquids for today, small amounts of food or liquid 4-[address] Abd/Pelvis, routine N.p.o. at midnight Consent for EGD in a.m. PPI As needed Bowel regimen as needed Further recommendations to follow Patient was seen per myself and Dr. Gloria, note was written on his behalf
--- NOTE | 2018-07-06 14:20 | ECG ---
Date Performed: 07/05/2018 Time Performed: 12:13:22 PTAGE: 33 years EKG: Sinus rhythm WITH MARKED SINUS ARRHYTHMIA BORDERLINE ECG Compared to PREVIOUS TRACING , sinus arrhythmia is new. [place] interval is slightly longer. PREVIOUS TRAC IN06/14/2018 15.52 DOCTOR: Maldonado Terrell Interpretating Date/Time 07/06/2018 14:19:43
[2018-07-06] MEDS ORDERED: Metoprolol Tartrate 25 MG Tablet PO SCH (14:45)
[2018-07-06] MEDS ORDERED: Chlorhexidine Gluconate 2% 1 Pack (2 Cloths) TOPICAL SCH (14:45)
[2018-07-06] MEDS ORDERED: Sodium Chlor 0.9% Inj 500 ML IV.SIG SCH (15:00)
[2018-07-06] MEDS ORDERED: Diatrizoate Meglum/Diatrizoate Sod Liq 9 ML UDC PO ONE (15:15)
[2018-07-06] MEDS: Pantoprazole Inj 40 MG Vial IV.PUSH SCH (17:07)
--- NOTE | 2018-07-06 17:21 | P.PN ---
Subjective Interval history: Patient seen by GI, feel weak and tired consulted Neurology. Physical Exam Vital signs: Vital Signs 07/05/18 19:16 07/05/18 19:31 07/05/18 20:00 Temperature 100.3 F H Pulse Rate 91 H 81 86 Respiratory Rate 18 16 18 Blood Pressure 161/83 H 172/96 H Pulse Oximetry 98 100 98 07/05/18 22:30 07/06/18 00:00 07/06/18 00:30 Temperature 99.9 F H Pulse Rate 86 80 92 H Respiratory Rate 18 Blood Pressure 174/102 H Pulse Oximetry 97 07/06/18 04:00 07/06/18 04:30 07/06/18 07:01 Temperature 99.0 F Pulse Rate 81 89 Respiratory Rate 18 12 Blood Pressure 157/87 H Pulse Oximetry 98 07/06/18 08:00 07/06/18 09:00 07/06/18 12:00 Temperature 98 F 98.5 F Pulse Rate 75 76 65 Respiratory Rate 20 20 Blood Pressure 124/65 134/78 Pulse Oximetry 97 99 07/06/18 13:03 07/06/18 13:56 07/06/18 16:00 Temperature 98.6 F Pulse Rate 63 58 L Respiratory Rate 12 20 Blood Pressure 114/74 Pulse Oximetry 100 Intake & Output 07/05/18 07/06/18 07/06/18 18:59 06:59 18:59 Intake Total 2200 / 2200 1580 / 1580 Balance 2200 / 2200 1580 / 1580 Weight 99.79 kg Intake: IV 2200 / 2200 1100 / 1100 D5W/1/2NS + KCL 20 mEq Inj 1, 1000 / 1000 1000 / 1000 000 ML @ 100 mls/hr IV.CONT . Q10H [facility] Rx#:[id number] NS Inj 1,000 ML @ Wide Open IV. 1000 / 1000 SIG BOLUS ONE Rx#:[id number] Keppra 1000 mg/100 mL Premix 200 / 200 100 / 100 100 ML @ 400 mls/hr IV.SIG Q12H [facility] Rx#:[id number] Oral 480 / 480 Other: # Voids 1 Date of Last Bowel Movement 07/04/18 07/04/18 - Constitutional no acute distress - Routine HEENT Exam Head: Present: normocephalic, atraumatic Eye: Present: EOMI, PERRL ENT: Present: mucous membranes moist - Routine Neck Exam Present: supple, full ROM - Routine Respiratory Exam Present: CTA bilaterally - Routine Cardiovascular Exam Present: RRR, S1, S2 - Routine Abdominal Exam Present: soft, normoactive bowel sounds - Routine Extremities Exam Present: full ROM, pulses intact - Routine Skin Exam Present: intact, dry, warm - Routine Neurological Exam Present: alert, oriented X3, CN II-XII intact, normal speech - Detailed Neurological Exam: Coma Scale Eye Opening: Spontaneous Verbal Response: Oriented Motor Response: Obey commands [place] Coma Scale Total: 15 - Routine Psychiatric Exam Present: normal affect, normal thought process Results - Labs CBC & Chem 7: 07/06/18 17:59 07/06/18 17:59 Laboratory Results - last 24 hr 07/06/18 07/06/18 03:48 03:48 WBC 12.9 H RBC 3.64 L Hgb 11.8 Hct 35.0 MCV 96.0 MCH 32.5 MCHC 33.8 RDW 14.2 Plt Count 296 MPV 7.9 Neut % (Auto) 81.6 H Lymph % (Auto) 11.3 [place] % (Auto) 6.8 Eos % (Auto) 0.0 Baso % (Auto) 0.3 Neut # (Auto) 10.5 H Lymph # (Auto) 1.4 [place] # (Auto) 0.9 Eos # (Auto) 0.0 Baso # (Auto) 0.0 WBC Differential . Differential Comment Auto diff final Sodium 140 Potassium 3.3 L Chloride 107 Carbon Dioxide 23.8 Anion Gap 9 BUN 6 L Creatinine 0.66 Estimated GFR Greater than 89 Random Glucose 131 H Calcium 8.3 L Total Bilirubin 0.5 AST 15 ALT 21 Alkaline Phosphatase 49 Total Protein 7.0 D Albumin 3.5 D Assessment and Plan - Plan Assessment and Plan - Plan Seizure disorder Pt has history of seizures during episodes of nausea and vomiting. Consulted neurology. She received IV Keppra in the ED. -continue home seizure regimen. -neuro checks, seizure precautions. -EEG. -Ativan IV as needed. Nausea/ Abdominal pain The pt states these occur with her periods, which she says she is having now. -GI input noted. -pain control and antiemetics as needed. -clear liquid diet. -MJ cessation instruction as may have cyclical vomiting syndrome. HTN Blood pressure has been elevated. -resume home meds. -Vasotec as needed. PPx: SCDs
[2018-07-06 18:50] LABS: Baso # (Auto) 0.1 th/mm3 (0.0-0.2); Baso % (Auto) 0.8 % (0.0-2.0); Eos % (Auto) 0.5 % (0.0-4.0); Hematocrit 34.8 % (35.0-46.0); Hemoglobin 11.7 gm/dL (11.6-15.3); Lymph # (Auto) 2.1 th/mm3 (1.0-4.8); Lymph % (Auto) 21.2 % (9.0-44.0); Mean Corpuscular HGB Conc 33.5 % (32.0-36.0); Mean Corpuscular Hemoglobin 32.6 pg (27.0-34.0); Mean Corpuscular Volume 97.4 fL (80.0-100.0); Mean Platelet Volume 8.2 fL (7.0-11.0); Mono # (Auto) 0.7 th/mm3 (0.0-0.9); Mono % (Auto) 7.3 % (0.0-8.0); Neut # (Auto) 6.8 th/mm3 (1.8-7.7); Neut % (Auto) 70.2 % (16.0-70.0); Platelet Count 280 th/mm3 (150-450); Red Blood Count 3.57 mil/mm3 (4.00-5.30); Red Cell Distribution Width 14.1 % (11.6-17.2); White Blood Count 9.7 th/mm3 (4.0-11.0)
[2018-07-06 19:12] LABS: Alanine Aminotransferase 22 U/L (10-53); Albumin 3.4 g/dL (3.4-5.0); Anion Gap 11 meq/L (5-15); Aspartate Aminotransferase 13 U/L (15-37); Blood Urea Nitrogen 6 mg/dL (7-18); Calcium 8.8 mg/dL (8.5-10.1); Carbon Dioxide 22.1 meq/L (21.0-32.0); Chloride 106 meq/L (98-107); Glomerular Filtration Rate Greater Than 89 mL/min (>89); Glucose,Random 87 mg/dL (74-106); Potassium 3.6 meq/L (3.5-5.1); Sodium 139 meq/L (136-145)
[2018-07-06 19:15] LABS: Alkaline Phosphatase 47 U/L (45-117); Total Protein 6.8 g/dL (6.4-8.2)
--- NOTE | 2018-07-06 19:53 | CT ---
EXAM DATE: 07/06/2018 7:36 PM EDT AGE/SEX: 33 years / Female INDICATIONS: Abdomen pain. CLINICAL DATA: This is the patient's initial encounter. Patient reports that signs and symptoms have been present for 1 day and indicates a pain score of 6/10. MEDICAL/SURGICAL HISTORY: Hypertension. Gastroparesis. Gastroesophageal reflux disease. Alberto stefan section. ORAL CONTRAST: Prescribed oral contrast ingested. RADIATION DOSE: 20.01 CTDI (mGy) COMPARISON: [facility] [place], CT ABDOMEN & PELVIS W CONTRAST, 06/14/2018. . TECHNIQUE: Multiple contiguous axial images were obtained through the abdomen and pelvis following b olus infusion of 96 ml Omnipaque 350 (iohexol) nonionic water-soluble contrast as a single exam dos e. Prescribed oral contrast ingested. Using automated exposure control and adjustment of the mA and/ or kV according to patient size, radiation dose was kept as low as reasonably achievable to obtain op timal diagnostic quality images. DICOM format image data is available electronically for review and comparison. FINDINGS: Lower Lungs: The visualized lower lungs are clear. Liver: The liver has a homogeneous density without space-occupying lesion. There is no dilation of th e biliary tree. No calcified gallstones. Spleen: Homogeneous density without enlargement. Pancreas: Unremarkable without mass or calcification. Kidneys: Normal in size and shape. No evidence of mass or hydronephrosis. Adrenal Glands: Unremarkable. Aorta: The aorta and proximal iliac vessels are grossly unremarkable without aneurysmal dilation. Bowel/Mesentery: No dilated loops of small or large bowel. Oral contrast passes through to the desce nding colon. Abdominal Wall: Intact. Retroperitoneum: No evidence of adenopathy in the retrocrural, para-aortic, or deep pelvic regions. Bladder: Contours are smooth. Reproductive Organs: Anteverted uterus. Low density areas in both adnexa suggesting ovarian cysts. N o evidence of free fluid.. Inguinal: The inguinal region is unremarkable without evidence of adenopathy. Bony Structures: Unremarkable. CONCLUSION: 1. Probable ovarian cysts. 2. Otherwise negative CT abdomen/pelvis with contrast. Electronically signed by: Amauri Yancey MD 07/06/2018 7:52 PM EDT
--- NOTE | 2018-07-06 21:26 | MG ---
cc: John Howe MD, PhD TECHNIQUE: A 17-channel EEG. DESCRIPTION: Background rhythm with symmetrical alpha frequency, 8 Hz, amplitude 20 microvolts. No seizures seen. No epileptiform discharges. Hyperventilation was done with no change in background rhythm. Photic results in a normal driving response. INTERPRETATION: Normal electroencephalogram. John Howe MD, PhD ROLAND/amanda , 09:04 PM , 09:09 PM
[2018-07-07] MEDS: KCL 20 mEq/D5W/NaCl 0.45% Inj 1,000 ML IV.CONT SCH ×3 (00:06→18:26)
[2018-07-07] MEDS: levETIRAcetam 1000mg/100mL Inj 100 ML IV.SIG SCH (00:07)
[2018-07-07] MEDS: Pantoprazole Inj 40 MG Vial IV.PUSH SCH ×2 (05:15→18:16)
[2018-07-07] MEDS: Lisinopril 20 MG Tablet PO SCH (09:29)
[2018-07-07] MEDS: amLODIPine 5 MG Tablet PO SCH (09:29)
--- NOTE | 2018-07-07 09:31 | MB ---
cc: Shailesh Workman MD DATE: 07/07/2018 HISTORY OF PRESENT ILLNESS: The patient is a 33-year-old right-handed woman with hypertension, who has GE reflux, some vomiting around her period every month. She has headaches, not infrequently, although not every day. She has a history of seizure for the last 4 years, I believe she went to see Dr. Carr. She cannot keep down her Keppra when she has the vomiting. Her last seizure was about a month ago, then she had seizure yesterday, and then just had one this morning, grand mal seizures. Given 2 mg of Ativan yesterday. SOCIAL HISTORY: No smoker or drinker. No drugs. Lives with her , not working. Occasionally drives. I told him not to drive or swim alone for the next 6 months in the [facility]. She does understand that. FAMILY HISTORY: Positive for brain cancer in her mother, also aneurysm in her mother and several relatives. Negative for seizure or stroke. MEDICATIONS AT HOME: Keppra 1000 q.12. Also possibly on lisinopril, carvedilol, amlodipine. She was given Keppra 1000 q.12 here. REVIEW OF SYSTEMS: She denied any history of diabetes; hypercholesterolemia; NE; CABG; stent; angioplasty; A-Fib; Coumadin; heart problems; renal, hepatic, or pulmonary disease; thyroid disease; lupus; ulcer; cancer; or stroke. I did see her in 02/2017. She said at that time she had over 100 seizures in the last year, 20 seizures yesterday. Goes to school at [employer]. At that time, she was on Dilantin 200 b.i.d. and Keppra 1000 b.i.d. Again, issues with nausea and vomiting. Her Dilantin level was 0.8. Her LFTs and TSH were normal. Her MRI of the brain prior to that had been normal with and without contrast. EEG had shown some slowing in the past and EEG yesterday was normal. I recommended having GI see her. There was a strong suspicion of pseudoseizures by Dr. Berry and Dr. Howe in the past. She denied any history for video EEG, but I suspected they probably were pseudoseizures at that time. We were going to transfer her out to a video EEG bed. Her EEG in February was normal. In the past, she had a normal sedimentation rate, WENDIE. Sodium had been low in the past but other times normal. LDL cholesterol normal. B6, B12, methylmalonic acid, thyroid all been normal in the past. Brain MRI 03/06/2017 with and without contrast, normal. PHYSICAL EXAMINATION: VITAL SIGNS: On exam now, 99.1, 82, 162/113, 185/114, although admission blood pressure 144/105. NECK: There were no carotid bruits. HEART: Regular rate and rhythm. I did not detect a murmur. GENERAL: She is moderately obese. NEUROLOGIC: Pupils are equal. Visual lozoya are full. Extraocular movements intact without nystagmus. Face was symmetric. Tongue was midline. She has normal strength in upper and lower extremities bilaterally. Toes downgoing bilaterally. DTRs trace throughout. Light touch is intact throughout. She is awake and alert, oriented, gives a fair history. Status post 1 mg of Ativan this morning. DIAGNOSTIC DATA: This morning, CBC normal. Basic metabolic profile normal. LFTs normal. EEG normal. 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 I informed her that if she would have another spell, we would have to send her out to a facility with video EEG for seizure monitoring. She does have a chronic gastrointestinal problem and the med team is taking care of that. I would recommend a UA, hCG, and RPR. The patient is on seizure precautions. She is on tele. Increase her Keppra to 1500 b.i.d. She may benefit from some Depakote for mood . Will start her on that now temporarily, although I would not keep her on that prolonged outpatient. She may do better with Topamax long outpatient as she has a history of headaches, not infrequently, ant that would help that and could also treat any seizures as well as high suspicion for pseudoseizures. MD DEBRA Hilario/jostin , 08:56 AM , 09:08 AM
--- NOTE | 2018-07-07 10:35 | P.PCN ---
Date of procedure: 07/07/18 Pre-op diagnosis: Nausea and vomiting with abdominal pain Procedure: PROCEDURE PERFORMED EGD with biopsy INDICATION FOR PROCEDURE Nausea and vomiting with upper abdominal pain PROCEDURE: The procedure, risks and benefits were discussed with Patient/POA and informed consent was obtained. Anesthesia sedated Patient with Diprivan. Patient was placed in the left lateral decubitus position. EGD: The Pentax videoscope was introduced through the oropharynx and advanced to the second portion of the duodenum under direct visualization. Retroflexion was performed in the stomach. FINDINGS: The esophagus this was normal The stomach there was patchy erythema in the gastric body and cardia probably from heaving and vomiting and there was some mild patchy erythema of the antrum of unclear significance this was biopsied otherwise no ulcerations and no erosions no food residue at this point The duodenum this was normal ESTIMATED BLOOD LOSS: None SPECIMENS REMOVED: Antral biopsies COMPLICATIONS: None IMPRESSION: Mild gastritis PLAN: Await biopsies Continue present management Advance diet as tolerated No further recommendations from a GI perspective we will sign off Anesthesia: ADRIANE Surgeon: Tom Moreno Condition: stable Disposition: floor
[2018-07-07] MEDS ORDERED: Lidocaine PF 1% Inj 5 ML Syringe INFILTRATN ONE (12:00)
--- NOTE | 2018-07-07 12:04 | P.PN ---
Subjective Interval history: Patient have high BP Started on Clonidine o.1 mg PRN Neurology input noted d/w RN at bed side Have seizure episode last night. Physical Exam Vital signs: Vital Signs 07/06/18 12:00 07/06/18 13:03 07/06/18 13:56 Temperature 98.5 F Pulse Rate 65 63 Respiratory Rate 20 12 Blood Pressure 134/78 Pulse Oximetry 99 07/06/18 16:00 07/06/18 17:42 07/06/18 20:00 Temperature 98.6 F 98.8 F Pulse Rate 58 L 57 L 55 L Respiratory Rate 20 18 Blood Pressure 114/74 113/67 Pulse Oximetry 100 98 07/06/18 20:30 07/06/18 20:49 07/07/18 00:00 Temperature 98.6 F Pulse Rate 60 65 Respiratory Rate 18 Blood Pressure 104/55 L Pulse Oximetry 97 97 07/07/18 00:30 07/07/18 01:24 07/07/18 04:00 Temperature 98.9 F Pulse Rate 56 L 70 Respiratory Rate 18 18 Blood Pressure Pulse Oximetry 99 07/07/18 04:30 07/07/18 04:59 07/07/18 05:07 Temperature Pulse Rate 56 L 65 Respiratory Rate 18 Blood Pressure 189/118 H Pulse Oximetry 07/07/18 05:10 07/07/18 07:42 07/07/18 07:45 Temperature Pulse Rate 65 82 Respiratory Rate Blood Pressure 185/114 H 160/105 H Pulse Oximetry 100 100 07/07/18 07:56 07/07/18 08:21 07/07/18 10:46 Temperature 99.1 F 98.6 F Pulse Rate 80 82 89 Respiratory Rate 24 16 18 Blood Pressure 155/113 H 162/113 H 133/78 Pulse Oximetry 100 99 Intake & Output 07/06/18 07/07/18 07/07/18 18:59 06:59 18:59 Intake Total 1580 / 1580 100 / 100 100 / 100 Balance 1580 / 1580 100 / 100 100 / 100 Weight 104.5 kg Intake: IV 1100 / 1100 100 / 100 D5W/1/2NS + KCL 20 mEq Inj 1, 1000 / 1000 000 ML @ 100 mls/hr IV.CONT . Q10H [facility] Rx#:[id number] Keppra 1000 mg/100 mL Premix 100 / 100 100 / 100 100 ML @ 400 mls/hr IV.SIG Q12H [facility] Rx#:[id number] Oral 480 / 480 Anesthesia Amount 100 / 100 Other: # Voids 2 Date of Last Bowel Movement 07/04/18 07/04/18 - Constitutional no acute distress - Routine HEENT Exam Head: Present: normocephalic, atraumatic Eye: Present: PERRL ENT: Present: mucous membranes moist - Routine Neck Exam Present: supple, full ROM - Routine Respiratory Exam Present: CTA bilaterally - Routine Cardiovascular Exam Present: RRR, S1, S2 - Routine Abdominal Exam Present: soft, normoactive bowel sounds - Routine Extremities Exam Present: full ROM, pulses intact - Routine Skin Exam Present: intact, dry, warm - Routine Neurological Exam Present: alert, oriented X3, CN II-XII intact - Detailed Neurological Exam: Coma Scale Eye Opening: Spontaneous Verbal Response: Oriented Motor Response: Obey commands Carlos Manuel Coma Scale Total: 15 - Routine Psychiatric Exam Present: normal affect, normal thought process Results - Labs CBC & Chem 7: 07/06/18 17:59 07/06/18 17:59 Laboratory Results - last 24 hr 07/06/18 07/06/18 07/07/18 17:59 17:59 07:42 WBC 9.7 RBC 3.57 L Hgb 11.7 Hct 34.8 L MCV 97.4 MCH 32.6 MCHC 33.5 RDW 14.1 Plt Count 280 MPV 8.2 Neut % (Auto) 70.2 H Lymph % (Auto) 21.2 [place] % (Auto) 7.3 Eos % (Auto) 0.5 Baso % (Auto) 0.8 Neut # (Auto) 6.8 Lymph # (Auto) 2.1 [place] # (Auto) 0.7 Eos # (Auto) 0.0 Baso # (Auto) 0.1 WBC Differential . Differential Comment Auto diff final Sodium 139 Potassium 3.6 Chloride 106 Carbon Dioxide 22.1 Anion Gap 11 BUN 6 L Creatinine 0.66 Estimated GFR Greater than 89 POC Glucose 139 H Random Glucose 87 Calcium 8.8 Total Bilirubin 0.8 AST 13 L ALT 22 Alkaline Phosphatase 47 Total Protein 6.8 Albumin 3.4 - Imaging Impressions Abdomen/Pelvis CT 07/06/18 00:00 CONCLUSION: 1. Probable ovarian cysts. 2. Otherwise negative CT abdomen/pelvis with contrast. Assessment and Plan - Plan Assessment and Plan - Plan Seizure disorder Pt has history of seizures during episodes of nausea and vomiting. neurology input noted. on Keppra and Ativan. -continue home seizure regimen. -neuro checks, seizure precautions. -EEG. -Ativan IV as needed. Nausea/ Abdominal pain The pt states these occur with her periods, which she says she is having now. -GI input noted. -pain control and antiemetics as needed. -MJ cessation instruction as may have cyclical vomiting syndrome. HTN Blood pressure has been elevated. -resume home meds. -Vasotec as needed. -Clonidine PRN. PPx: SCDs Check CBC with diff and CMP in AM.
[2018-07-07] MEDS: Senna/Docusate Sodium 8.6/50 MG Tablet PO SCH ×2 (12:46→22:09)
[2018-07-07] MEDS: levETIRAcetam Inj 1,500 MG in Sodium Chlor 0.9% Inj 100 ML IV.SIG SCH ×2 (12:46→22:08)
[2018-07-07] MEDS: Valproate Inj 500 MG in Sodium Chlor 0.9% Inj 100 ML IV.SIG SCH ×2 (14:18→18:50)
[2018-07-07] MEDS: Morphine Inj 4 MG/ML Vial IV.PUSH PRN (14:33)
[2018-07-08] MEDS: Valproate Inj 500 MG in Sodium Chlor 0.9% Inj 100 ML IV.SIG SCH ×2 (01:08→10:22)
[2018-07-08] MEDS: KCL 20 mEq/D5W/NaCl 0.45% Inj 1,000 ML IV.CONT SCH (05:14)
[2018-07-08] MEDS: Pantoprazole Inj 40 MG Vial IV.PUSH SCH (05:16)
--- NOTE | 2018-07-08 07:23 | P.PNNEU ---
Subjective Subjective Comments: no more spells stil some nv Active Medications: Active Medications Acetaminophen (Tylenol) 650 mg PO Q4H PRN PRN Reason: Temp > 100.4 Hydrocodone Bitart/Acetaminophen ([place] 5/325) 1 tab PO Q6H PRN PRN Reason: PAIN SCALE 1-5 Last Admin: 07/08/18 05:26 Dose: 1 tab Amlodipine Besylate (Norvasc) 5 mg PO DAILY [facility] Last Admin: 07/07/18 09:29 Dose: 5 mg Carvedilol (Coreg) 3.125 mg PO BID [facility] Last Admin: 07/07/18 22:08 Dose: 3.125 mg Chlorhexidine Gluconate (Chlorhexidine 2% Cloth) 3 pack TOPICAL BODY WIRER [facility] Stop: 07/09/18 14:31 Clonidine HCl (Catapres) 0.1 mg PO Q6H PRN PRN Reason: SBP/DBP > 160/90 Enalaprilat (Vasotec Inj) 1.25 mg IV.PUSH Q6H PRN PRN Reason: SBP> OR = 180, DBP> OR = 100 Last Admin: 07/07/18 05:15 Dose: 1.25 mg Potassium Chloride/Dextrose/Sod Cl (D5w/1/2ns + Kcl 20 Meq Inj) 1,000 mls @ 100 mls/hr IV.CONT .Q10H [facility] Last Admin: 07/08/18 05:14 Dose: Not Given Lactated Ringer's (Lr 1000 Ml Inj) 1,000 mls @ 30 mls/hr IV.SIG .Q24H [facility] Stop: 07/09/18 14:31 Last Admin: 07/07/18 14:18 Dose: Not Given Sodium Chloride (Ns Inj) 500 mls @ 30 mls/hr IV.SIG .Q10H [facility] Stop: 07/09/18 14:31 Levetiracetam 1,500 mg/ Sodium (Chloride) 115 mls @ 405.882 mls/hr IV.SIG Q12H [facility] Last Infusion: 07/07/18 23:37 Dose: Infused Valproate Sodium 500 mg/ (Sodium Chloride) 105 mls @ 105 mls/hr IV.SIG Q8H [facility] Last Infusion: 07/08/18 02:53 Dose: Infused Lisinopril (Prinivil) 40 mg PO DAILY [facility] Last Admin: 07/07/18 09:29 Dose: 40 mg Lorazepam (Ativan Inj) 1 mg IV.PUSH Q2H PRN PRN Reason: SEIZURES Last Admin: 07/07/18 07:38 Dose: 1 mg Metoprolol Tartrate (Lopressor) 25 mg PO BODY WIRER [facility] Stop: 07/09/18 14:31 Morphine Sulfate (Morphine Inj) 4 mg IV.PUSH Q4H PRN PRN Reason: pain 3-10 Last Admin: 07/07/18 14:33 Dose: 4 mg Pantoprazole Sodium (Protonix Inj) 40 mg IV.PUSH Q12H [facility] Last Admin: 07/08/18 05:16 Dose: 40 mg Povidone Iodine (Betadine 5% Antisepsis Kit) 1 applicatio EACH NARE BODY WIRER [facility] Stop: 07/09/18 14:31 Prochlorperazine Edisylate (Compazine Inj) 10 mg IV.PUSH Q6H PRN PRN Reason: NAUSEA Last Admin: 07/07/18 14:18 Dose: 10 mg Senna/Docusate Sodium (Roxanne-Colace) 1 tab PO BID [facility] Last Admin: 07/07/18 22:09 Dose: Not Given Sodium Chloride (Ns Flush) 2 ml IV.FLUSH PRN PRN PRN Reason: FLUSH AFTER USING IV ACCESS Allergies/Adverse Reactions: Allergies Allergy/AdvReac Type Severity Reaction Status Date / Time No Known Allergies Allergy Unverified 06/14/18 14:56 Physical Exam Vital signs: Vital Signs 07/07/18 07:42 07/07/18 07:45 07/07/18 07:56 Temperature Pulse Rate 82 80 Respiratory Rate 24 Blood Pressure 160/105 H 155/113 H Pulse Oximetry 100 100 100 07/07/18 08:00 07/07/18 08:21 07/07/18 10:46 Temperature 99.1 F 98.6 F Pulse Rate 82 82 89 Respiratory Rate 16 16 18 Blood Pressure 162/113 H 133/78 Pulse Oximetry 99 07/07/18 12:00 07/07/18 16:00 07/07/18 20:00 Temperature 99.5 F 98.8 F 100 F H Pulse Rate 81 107 H 82 Respiratory Rate 16 16 18 Blood Pressure 183/110 H 109/70 190/106 H Pulse Oximetry 98 97 94 L 07/08/18 00:00 07/08/18 04:00 Temperature 98.0 F 98.4 F Pulse Rate 81 79 Respiratory Rate 12 12 Blood Pressure 109/56 L 171/81 H Pulse Oximetry 99 100 Intake & Output 07/07/18 07/08/18 07/08/18 18:59 06:59 18:59 Intake Total 1040 / 1040 1325 / 1325 Output Total 2 / 2 Balance 1040 / 1040 1323 / 1323 Intake: IV 220 / 220 1325 / 1325 D5W/1/2NS + KCL 20 mEq Inj 1, 1000 / 1000 000 ML @ 100 mls/hr IV.CONT . Q10H [facility] Rx#:[id number] Depacon Inj 500 MG In NS Inj 105 / 105 210 / 210 100 ML @ 105 mls/hr IV.SIG Q8H [facility] Rx#:[id number] Keppra Inj 1,500 MG In NS Inj 115 / 115 115 / 115 100 ML @ 405.882 mls/hr IV.SIG Q12H [facility] Rx#:[id number] Oral 720 / 720 Anesthesia Amount 100 / 100 Output: Urine 2 / 2 Other: # Voids 4 Date of Last Bowel Movement 07/04/18 07/04/18 Narrative: awake alert nl speech Objective Laboratory Results - last 24 hr 07/07/18 07/07/18 07:42 13:49 POC Glucose 139 H Beta HCG, Quant Less than 1 Review/Management - Review/Management Plan: imp pseudosz suspected can change vpa to po when no n/v her u/a should be checked stable neuro no more spells can dc neurowise
[2018-07-08] MEDS: Senna/Docusate Sodium 8.6/50 MG Tablet PO SCH (10:22)
[2018-07-08] MEDS: Lisinopril 20 MG Tablet PO SCH (10:22)
[2018-07-08] MEDS: amLODIPine 5 MG Tablet PO SCH (10:22)
--- NOTE | 2018-07-08 10:55 | P.PN ---
Subjective Interval history: Patient feel better no acute issue. Physical Exam Vital signs: Vital Signs 07/07/18 12:00 07/07/18 16:00 07/07/18 20:00 Temperature 99.5 F 98.8 F 100 F H Pulse Rate 81 107 H 82 Respiratory Rate 16 16 18 Blood Pressure 183/110 H 109/70 190/106 H Pulse Oximetry 98 97 94 L 07/08/18 00:00 07/08/18 04:00 07/08/18 08:00 Temperature 98.0 F 98.4 F 97.8 F Pulse Rate 81 79 96 H Respiratory Rate 12 12 16 Blood Pressure 109/56 L 171/81 H 128/61 Pulse Oximetry 99 100 98 Intake & Output 07/07/18 07/08/18 07/08/18 18:59 06:59 18:59 Intake Total 1040 / 1040 1325 / 1325 Output Total 2 / 2 Balance 1040 / 1040 1323 / 1323 Intake: IV 220 / 220 1325 / 1325 D5W/1/2NS + KCL 20 mEq Inj 1, 1000 / 1000 000 ML @ 100 mls/hr IV.CONT . Q10H [facility] Rx#:[id number] Depacon Inj 500 MG In NS Inj 105 / 105 210 / 210 100 ML @ 105 mls/hr IV.SIG Q8H [facility] Rx#:[id number] Keppra Inj 1,500 MG In NS Inj 115 / 115 115 / 115 100 ML @ 405.882 mls/hr IV.SIG Q12H [facility] Rx#:[id number] Oral 720 / 720 Anesthesia Amount 100 / 100 Output: Urine 2 / 2 Other: # Voids 4 Date of Last Bowel Movement 07/04/18 07/04/18 - Constitutional no acute distress - Routine HEENT Exam Head: Present: normocephalic, atraumatic ENT: Present: mucous membranes moist - Routine Neck Exam Present: supple, full ROM - Routine Respiratory Exam Present: CTA bilaterally - Routine Cardiovascular Exam Present: RRR, S1, S2 - Routine Abdominal Exam Present: soft, normoactive bowel sounds - Routine Extremities Exam Present: full ROM - Routine Skin Exam Present: intact, dry, warm - Routine Neurological Exam Present: alert, oriented X3, CN II-XII intact, normal speech - Detailed Neurological Exam: Coma Scale Eye Opening: Spontaneous Verbal Response: Oriented Motor Response: Obey commands Carlos Manuel Coma Scale Total: 15 - Routine Psychiatric Exam Present: normal affect Results - Labs CBC & Chem 7: 07/06/18 17:59 07/06/18 17:59 Laboratory Results - last 24 hr 07/07/18 07/07/18 13:49 13:49 Beta HCG, Quant Less than 1 RPR Nonreactive Assessment and Plan - Plan Assessment and Plan - Plan Seizure disorder Pt has history of seizures during episodes of nausea and vomiting. neurology input noted. on Keppra and Ativan. -continue home seizure regimen. -neuro checks, seizure precautions. -EEG. -Ativan IV as needed. Nausea/ Abdominal pain The pt states these occur with her periods, which she says she is having now. -GI input noted. -pain control and antiemetics as needed. -MJ cessation instruction as may have cyclical vomiting syndrome. HTN Blood pressure has been elevated. -resume home meds. -Vasotec as needed. -Clonidine PRN. PPx: SCDs ok to discharge home today
[2018-07-08] MEDS: levETIRAcetam Inj 1,500 MG in Sodium Chlor 0.9% Inj 100 ML IV.SIG SCH (12:00)
--- NOTE | 2018-07-23 10:29 | MD ---
cc: Johann Velasquez MD DATE OF DISCHARGE: 07/08/2018 Okay to discharge the patient home. CONDITION AT THE TIME OF DISCHARGE: Satisfactory. ACTIVITY: As tolerated. DIET: Cardiac diet. ALLERGIES: NO KNOWN DRUG ALLERGIES. MEDICATIONS: Include amlodipine 5 mg p.o. daily, carvedilol 3.25 mg p.o. b.i.d., [place] 5/325 q.6 hours p.r.n. pain, Keppra 1500 mg twice a day, Ativan 0.5 mg p.o. t.i.d. p.r.n. seizures during hospital stay. The Keppra dose increased to 1500 mg twice a day by neurologist. The patient was seen by Dr. Shailesh Workman, the neurologist, for seizure disorder. ADMITTING DIAGNOSES: Seizure episode which turned out to be pseudoseizures, per neurology. The patient got an EEG done during the hospital stay. Patient was given neuro checkup and seizure precaution during the hospital stay and got Ativan during hospital stay. The patient also had nausea and vomiting. GI saw the patient during the hospital stay. The patient had an EGD done with a biopsy. The patient advised to followup with GI. Biopsy report was pending. The patient also has hypertension. The patient was given a blood pressure medicine during the hospital stay. Patient remained stable. No acute event happened. Discharged in a satisfactory condition. Further detail in the medical record. Johann Velasquez MD EA/jostin , 09:50 AM , 09:58 AM
== END 2018-07-08 13:25 | disposition home or self-care (01) ==
LOC: NEPE 11:51 → NEDA 16:14 → N05 20:56
PROVIDERS: ADMIT Family Medicine; ATTEND Family Medicine
PROC: PANENDO (2018-07-07 10:14)

== ENCOUNTER 2018-11-06 18:19 | Inpatient (IN) ==
[2018-11-06] MEDS ORDERED: Sod Chloride 0.9% Inj 1,000 ML IV.SIG ONE (18:31)
--- NOTE | 2018-11-06 18:39 | ED ---
HPI General Chief Complaint: Seizure Stated Complaint: Seizure Time Seen by Provider: 11/06/18 18:31 Source: patient, RN notes reviewed and old records reviewed Mode of arrival: EMS Limitations: other History of Present Illness HPI Narrative: 33-year-old female presents to the emergency department via EMS for evaluation after she had a seizure at home. According to EMS, she was seizing when the fire department arrived and they gave her 2 mg of Valium. She did not have any seizure activity for EMS. However, arrival here, she started with seizure activity again according to the RN. She was given Ativan 2 mg IV. The patient is postictal on my exam. According to chart, she has history of seizures and gastric issues. According to EMS, she was nauseous today and not take her Keppra. Moderate severity. MD complaint: Reports seizure Description of Episode: Reports tonic-clonic movement Trauma: No Seizure History: Reports known seizure disorder and history of non-compliance with treatment Place: home Possible Precipitating Event: Reports none; Denies head injury, fever, drug use , alcohol withdrawal, lack of sleep, stress and medication Associated symptoms: Reports other (Nausea); Denies chest pain, confusion, cough , diaphoresis, fever/chills, loss of appetite, malaise, rash, shortness of breath, syncope and weakness Treatments prior to arrival: Reports benzodiazepines Related Data Previous Rx's Medication Instructions Recorded amlodipine 5 mg PO DAILY #30 tab 10/02/18 carvedilol [Coreg] 3.125 mg PO BID #60 tab 10/02/18 levetiracetam [Keppra] 1,000 mg PO Q12H #60 tab 10/02/18 lisinopril 40 mg PO DAILY #30 tab 10/02/18 omeprazole 40 mg PO DAILY #30 cap 10/02/18 promethazine [Phenergan] 25 mg RECTAL Q6H PRN #12 each 10/02/18 Allergies Allergy/AdvReac Type Severity Reaction Status Date / Time No Known Allergies Allergy Unverified 06/14/18 14:56 Review of Systems ROS: all other systems reviewed are negative [facility] Medical History Medical History Anxiety (Acute) GERD (gastroesophageal reflux disease) (Acute) Hypertension (Acute) Seizures (Acute) Surgical History Surgical History Previous section (Acute) Social History Social History Substance History: Unable to Obtain Second Hand Smoke Exposure: No Smoking Status: Unknown if ever smoked Tobacco Type: Cigarettes How Often Do You Have a Drink Containing Alcohol: 2 to 4 times a month Recent Travel in [facility] within the Last 8 Weeks: No Recent Out of Country Travel within the Last 8 Weeks: No Exam Narrative Exam Narrative: GENERAL: Well-nourished, well-developed female patient, afebrile. Patient is postictal SKIN: Focused skin assessment warm/dry. HEAD: Normocephalic. Atraumatic. ENT: Mucosa pink and moist. No erythema or exudates. No uvular edema. No uvular , palatal, or tonsillar deviation. Airway patent. Nasal turbinates appear normal without nasal blood, purulent drainage or septal hematoma. Bilateral tympanic membranes clear without erythema or perforation. EYES: No scleral icterus. No injection or drainage. NECK: Supple, trachea midline. No JVD or lymphadenopathy. CARDIOVASCULAR: Regular rate and rhythm without murmurs, gallops, or rubs. Bilateral radial and pedal pulses are 2+. RESPIRATORY: Breath sounds equal bilaterally. No accessory muscle use. Lung sounds are clear to auscultation. GASTROINTESTINAL: Abdomen soft, non-tender, nondistended. MUSCULOSKELETAL: No cyanosis, or edema. Patient squeezes hands and wiggles toes to command. BACK: Nontender without obvious deformity. No CVA tenderness. Course Initial Documented Vital Signs Pulse Rate 87 11/06/18 19:05 Respiratory Rate 18 11/06/18 19:05 Blood Pressure 210/113 H 11/06/18 19:05 Pulse Oximetry 98 11/06/18 19:05 Last Documented Vital Signs Temperature 97.4 F L 11/06/18 19:24 Pulse Rate 94 H 11/06/18 19:24 Respiratory Rate 18 11/06/18 19:24 Blood Pressure 166/84 H 11/06/18 20:18 Pulse Oximetry 94 L 11/06/18 19:24 Medical Decision Making EMILIA Attestation EMILIA supervised visit: Yes Attestation: I, Dr. Olivares, have reviewed the advance practice practitioner's documentation and am in agreement, met with the patient face to face, made the diagnosis, and the medical decision making was done by me. *My assessment and Findings: Patient seen and evaluated with PA. History of seizures, forgot to take her medications, Keppra. Has had multiple seizures at home according to the family, had several witnessed seizures here as well. She is started on IV Keppra. She has not completely woken up in between the seizures, and at this point, my plan would be to admit her for further observation, status epilepticus. Case is discussed with Dr. Prater for admission. [facility] Narrative Medical decision making narrative: 33-year-old female presents to the emergency department via EMS for seizure activity. She does have known history of seizures. She apparently started seizing upon arrival. She was given Ativan 2 mg IV. She is postictal on my exam, but is following commands. EKG, CBC, CMP, magnesium, UA, urine test, urine drug screen are ordered and pending. Patient is given Keppra 500 mg IV. CBC shows leukocytosis of 14.8. CMP shows no acute abnormality. Magnesium is 1.8. Upon reevaluation, patient had another seizure. Patient is given Ativan 1 mg IV. Patient will be admitted for status epilepticus. Dr. Prater accepted admission. Medical Screen Exam Complete: Yes Emergency Medical Condition: Yes Differential Diagnosis Differential Diagnosis: Recurrent seizure versus medication noncompliance versus metabolic abnormality Medical Records Medical records reviewed: Yes I reviewed the patient's medical records. Lab Data Result diagrams: 11/06/18 18:46 11/06/18 18:46 Lab Results 11/06/18 11/06/18 11/06/18 Range/Units 18:46 18:46 20:23 WBC 14.8 H (4.0-11.0) th/mm3 RBC 4.74 (4.00-5.30) mil/mm3 Hgb 15.2 (11.6-15.3) gm/dL Hct 45.0 (35.0-46.0) % MCV 94.9 (80.0-100.0) fL MCH 32.0 (27.0-34.0) pg MCHC 33.7 (32.0-36.0) % RDW 14.0 (11.6-17.2) % Plt Count 313 (150-450) th/mm3 MPV 8.4 (7.0-11.0) fL Neut % (Auto) 93.0 H (16.0-70.0) % Lymph % (Auto) 4.3 L (9.0-44.0) % [place] % (Auto) 2.5 (0.0-8.0) % Eos % (Auto) 0.0 (0.0-4.0) % Baso % (Auto) 0.2 (0.0-2.0) % Neut # (Auto) 13.8 H (1.8-7.7) th/mm3 Lymph # (Auto) 0.6 L (1.0-4.8) th/mm3 [place] # (Auto) 0.4 (0.0-0.9) th/mm3 Eos # (Auto) 0.0 (0.0-0.4) th/mm3 Baso # (Auto) 0.0 (0.0-0.2) th/mm3 WBC Differential . Differential Comment Auto diff final Sodium 139 (136-145) meq/L Potassium 4.0 (3.5-5.1) meq/L Chloride 109 H (98-107) meq/L Carbon Dioxide 20.2 L (21.0-32.0) meq/L Anion Gap 10 (5-15) meq/L BUN 8 (7-18) mg/dL Creatinine 0.85 (0.50-1.00) mg/dL Estimated GFR Greater than 89 (>89) mL/min Random Glucose 136 H (74-106) mg/dL Calcium 9.2 (8.5-10.1) mg/dL Magnesium 1.8 (1.5-2.5) mg/dL Total Bilirubin 0.5 (0.2-1.0) mg/dL AST 16 (15-37) U/L ALT 23 (10-53) U/L Alkaline Phosphatase 73 (45-117) U/L Total Protein 8.9 H (6.4-8.2) g/dL Albumin 4.4 (3.4-5.0) g/dL Urine Color Yellow (Yellw/Straw) Urine Clarity Hazy H (Clear) Urine pH 6.0 (5.0-8.5) Ur Specific [place] 1.021 (1.002-1.035) Urine Protein 100 H (Neg-Trace) mg/dL Urine Glucose (UA) Negative (Negative) mg/dL Urine Ketones Trace H (Negative) mg/dL Urine Occult Blood Small H (Negative) Urine Nitrate Negative (Negative) Urine Bilirubin Negative (Negative) Urine Urobilinogen Less than 2 (Less than 2) mg/dL Ur Leukocyte Esterase Negative (Negative) Urine RBC 9 H (0-3) /hpf Urine WBC 1 (0-5) /hpf Ur Squamous Epith Cells 3 (0-5) /hpf Urine Bacteria Rare H (None) /hpf Hyaline Casts 3 (0-3) /lpf Urine Mucus Few H (Occasional) /lpf Micro UA Comment Culture not ind Ur Microscopic Review Not Reportable Urine Culture Comments Culture not ind Discharge Plan Discharge Disposition Patient Disposition: ED Admit(ED Internal Use Only) Discharge Order Discharge Orders: ED Use Only Admit Order (Routine); Ordered 11/06/18 Ordered By: Maya Sewell Discharge Details Diagnosis: Status epilepticus Physicians Team ED Provider: Mason Olivares ED Midlevel Provider: Maya Sewell Primary Care Provider: UNKNOWN, Attending Provider: Lilo Prater Status ED Status: Admitted Patient
[2018-11-06 19:09] LABS: Baso % (Auto) 0.2 % (0.0-2.0); Hemoglobin 15.2 gm/dL (11.6-15.3); Lymph # (Auto) 0.6 th/mm3 (1.0-4.8); Lymph % (Auto) 4.3 % (9.0-44.0); Mean Corpuscular HGB Conc 33.7 % (32.0-36.0); Mean Corpuscular Volume 94.9 fL (80.0-100.0); Mean Platelet Volume 8.4 fL (7.0-11.0); Mono # (Auto) 0.4 th/mm3 (0.0-0.9); Mono % (Auto) 2.5 % (0.0-8.0); Neut # (Auto) 13.8 th/mm3 (1.8-7.7); Platelet Count 313 th/mm3 (150-450); Red Blood Count 4.74 mil/mm3 (4.00-5.30); White Blood Count 14.8 th/mm3 (4.0-11.0)
[2018-11-06 19:18] LABS: Albumin 4.4 g/dL (3.4-5.0); Anion Gap 10 meq/L (5-15); Aspartate Aminotransferase 16 U/L (15-37); Blood Urea Nitrogen 8 mg/dL (7-18); Calcium 9.2 mg/dL (8.5-10.1); Carbon Dioxide 20.2 meq/L (21.0-32.0); Chloride 109 meq/L (98-107); Glomerular Filtration Rate Greater Than 89 mL/min (>89); Glucose,Random 136 mg/dL (74-106); Magnesium 1.8 mg/dL (1.5-2.5); Sodium 139 meq/L (136-145)
[2018-11-06 19:22] LABS: Alanine Aminotransferase 23 U/L (10-53); Alkaline Phosphatase 73 U/L (45-117); Total Protein 8.9 g/dL (6.4-8.2)
[2018-11-06] MEDS ORDERED: Bisacodyl 10 MG Supp RECTAL PRN (20:34)
[2018-11-06] MEDS ORDERED: Acetaminophen 325 MG Tablet PO PRN (20:34)
[2018-11-06 20:49] LABS: Amphetamine Screen,Urine Neg (Neg); Bacteria,Urine Rare /hpf; Barbiturate Screen,Urine Neg (Neg); Bilirubin,Urine Negative (Negative); Cannabinoid Screen,Urine Pos (Neg); Clarity,Urine Hazy (Clear); Cocaine Screen,Urine Neg (Neg); Color,Urine Yellow (Yellw/Straw); Glucose,Urine (UA) Negative (Negative); Hyaline Casts,Urine 3 /lpf (0-3); Leukocyte Esterase,Urine Negative (Negative); Mucus,Urine Few /lpf (Occasional); Nitrite,Urine Negative (Negative); Specific Gravity,Urine 1.021 (1.002-1.035); Squamous Epithelial Cell,Urine 3 /hpf (0-5)
[2018-11-06 20:56] LABS: Opiate Screen,Urine Neg (Neg)
--- NOTE | 2018-11-06 21:07 | P.HPIM ---
History of Present Illness Primary Care Physician: UNKNOWN History of Present Illness: This is a 33-year-old female with a PMH of HTN, Gastroparesis and Seizure Disorder who was brought to the ER by EMS after seizure activity. Per family, pt had multiple seizures at home, they approximate 5, then had 1 seizure w/ EMS and 2 additional seizures in the ER. Pt currently post-ictal, but is able to tell me she's had nausea/vomiting today and missed her dose of Keppra this morning, otherwise is compliant w/ meds. Follows w/ Neurology but unablt to tell me who. On arrival, BP 183/117, HR 94, O2 sat 94% on RA, Afebrile. WBC 14.8 per chemistry essentially unremarkable. A negative for UTI. Urine Drug Screen positive for Benzo and Marijuana. S/p Keppra 500mg IV x1 in ER. Diagnosis (1) HTN (hypertension): (2) Gastroparesis: (3) Seizure: Inpatient Certification Inpatient Certification: I certify that the inpatient services were ordered in accordance with Medicare regulations governing the order. This includes certification that hospital inpatient services are reasonable and necessary and in the case of services not specified as inpatient-only under 42 CFR 419.22(n), that they are appropriately provided as inpatient services in accordance to with the 2-midnight benchmark under 43 CFR 412.3(e) Estimated Total Length of Stay (Days): 2 Plans for Post Hospital Care: Not yet determined Review of Systems PAST FAMILY HISTORY: Reviewed. No h/o DM or CAD ROS Unobtainable: unobtainable due to mental condition [facility] Medical History Medical History Anxiety (Acute) GERD (gastroesophageal reflux disease) (Acute) Hypertension (Acute) Seizures (Acute) Surgical History Surgical History Previous section (Acute) Social History Social History Substance History: Unable to Obtain Second Hand Smoke Exposure: No Smoking Status: Unknown if ever smoked Tobacco Type: Cigarettes How Often Do You Have a Drink Containing Alcohol: 2 to 4 times a month Recent Travel in [facility] within the Last 8 Weeks: No Recent Out of Country Travel within the Last 8 Weeks: No Medications and Allergies Allergies Allergy/AdvReac Type Severity Reaction Status Date / Time No Known Allergies Allergy Unverified 06/14/18 14:56 Active Medications: Active Medications Acetaminophen (Tylenol) 650 mg PO Q4H PRN PRN Reason: Temp > 100.4 Al Hydroxide/Mg Hydroxide (Milk Of Magnesia Liq) 30 ml PO Q12H PRN PRN Reason: Mild Constipation Bisacodyl (Dulcolax Supp) 10 mg RECTAL DAILY PRN PRN Reason: SEVERE CONSITIPATION Sodium Chloride (Ns Inj) 1,000 mls @ 100 mls/hr IV.CONT .Q10H BINDU Levetiracetam 500 mg/ Sodium (Chloride) 105 mls @ 400 mls/hr IV.SIG ONCE ONE Stop: 11/06/18 21:15 Levetiracetam 500 mg/ Sodium (Chloride) 105 mls @ 400 mls/hr IV.SIG Q12H BINDU Lactulose (Lactulose Liq) 30 ml PO DAILY PRN PRN Reason: SEVERE CONSITIPATION Lorazepam (Ativan Inj) 1 mg IV.PUSH Q5M PRN PRN Reason: SEIZURES Ondansetron HCl (Zofran Inj) 4 mg IV.PUSH Q6H PRN PRN Reason: NAUSEA OR VOMITING Senna/Docusate Sodium (Roxanne-Colace) 1 tab PO BID BINDU Sennosides (Senokot) 17.2 mg PO Q12H PRN PRN Reason: Moderate Constipation Sodium Chloride (Ns Flush) 2 ml IV.FLUSH PRN PRN PRN Reason: FLUSH AFTER USING IV ACCESS Sodium Chloride (Ns Flush) 2 ml IV.FLUSH BID BINDU Sodium Chloride (Ns Flush) 2 ml IV.FLUSH PRN PRN PRN Reason: FLUSH AFTER USING IV ACCESS Physical Exam Vital signs: Last Vital Signs Temp 97.4 F L 11/06/18 19:24 Pulse 94 H 11/06/18 19:24 Resp 18 11/06/18 19:24 BP 166/84 H 11/06/18 20:18 Pulse Ox 100 11/06/18 20:53 Intake & Output 11/04/18 11/05/18 11/06/18 11/07/18 06:59 06:59 06:59 06:59 Weight 99.79 kg Narrative: PE: GENERAL: Young black female in no acute distress, post-ictal, lethargic but answering few questions. SKIN: Focused skin assessment warm and dry. HEENT: PERRLA, EOMI. No scleral icterus or conjunctival pallor. No lid lag or facial droop. CARDIOVASCULAR: Regular rate and rhythm. No obvious murmurs to auscultation. No chest tenderness to palpation. RESPIRATORY: No obvious rhonchi or wheezing. Clear to auscultation. Breath sounds equal bilaterally. GASTROINTESTINAL: Abdomen soft, non-tender, nondistended. BS normal. MUSCULOSKELETAL: Extremities without clubbing, cyanosis, or edema. No obvious deformities. NEUROLOGICAL: Post ictal, lethargic. No focal neurologic deficits. Moving both upper and lower extremities spontaneously. PSYCHIATRIC: Appropriate mood and affect. Insight and judgment normal. Results Labs CBC & Chem 7: 11/06/18 18:46 12 18:46 Caprini VTE Risk Assessment Caprini VTE Risk Assessment: No/Low Risk (score <= 1) Caprini Risk Assessment Model: Point Value = 1 Point Value = 2 Point Value = 3 Point Value = 5 Age 41-60 Minor surgery BMI > 25 kg/m2 Swollen legs Varicose veins or History of unexplained or recurrent spontaneous Oral contraceptives or hormone replacement Sepsis (< 1 month) Serious lung disease, including pneumonia (< 1 month) Abnormal pulmonary function Acute myocardial infarction Congestive heart failure (< 1 month) History of inflammatory bowel disease Medical patient at bed rest Age 61-74 Arthroscopic surgery Major open surgery (> 45 min) Laparoscopic surgery (> 45 min) Malignancy Confined to bed (> 72 hours) Immobilizing plaster cast Central venous access Age >= 75 History of VTE Family history of VTE Factor V Leiden Prothrombin [id number] Lupus anticoagulant Anticardiolipin antibodies Elevated serum homocysteine Heparin-induced thrombocytopenia Other congenital or acquired thrombophilia Stroke (< 1 month) Elective arthroplasty Hip, pelvis, or leg fracture Acute spinal cord injury (< 1 month) Prophylaxis Regimen: Total Risk Factor Score Risk Level Prophylaxis Regimen 0-1 Low Early ambulation 2 Moderate Order ONE of the following: *Sequential Compression Device (SCD) *Heparin 5000 units SQ BID 3-4 Higher Order ONE of the following medications: *Heparin 5000 units SQ TID *Enoxaparin/Lovenox 40 mg SQ daily (WT < 150 kg, CrCl > 30 mL/min) *Enoxaparin/Lovenox 30 mg SQ daily (WT < 150 kg, CrCl > 10-29 mL/min) *Enoxaparin/Lovenox 30 mg SQ BID (WT < 150 kg, CrCl > 30 mL/min) AND/OR *Sequential Compression Device (SCD) 5 or more Highest Order ONE of the following medications: *Heparin 5000 units SQ TID (Preferred with Epidurals) *Enoxaparin/Lovenox 40 mg SQ daily (WT < 150 kg, CrCl > 30 mL/min) *Enoxaparin/Lovenox 30 mg SQ daily (WT < 150 kg, CrCl > 10-29 mL/min) *Enoxaparin/Lovenox 30 mg SQ BID (WT < 150 kg, CrCl > 30 mL/min) AND *Sequential Compression Device (SCD) Assessment and Plan (1) HTN (hypertension): Code(s): I10 - Essential (primary) hypertension Status: Acute (2) Gastroparesis: Code(s): K31.84 - Gastroparesis Status: Acute (3) Seizure: Code(s): R56.9 - Unspecified convulsions Status: Acute Plan A/P: 1. Seizure: h/o Seizure Disorder, multiple episodes of seizure activity today per family, approximately 5 at home, in addition to 1 en route to ER and 2 witnessed seizures here. On Keppra 500mg bid, missed today's dose due to nausea /vomiting. S/p Keppra 500mg IV in ER, will give additional 500mg IV Keppra for total loading dose of 1gm, continue w/ home regimen. Consult Neurology for further recommendations. Seizure Precautions. Ativan prn. 2. HTN: Uncontrolled. BP 180-190's, antihypertensives as needed for BP >180 3. DVT Prophylaxis: SCD/Teds 4. Social work for d/c planning as needed. 5. Case discussed w/ ER physician at length, labs/records/imaging reviewed by me.
[2018-11-06] MEDS: Senna/Docusate Sodium 8.6/50 MG Tablet PO SCH (22:19)
[2018-11-07] MEDS: Labetalol HCl Inj 100 MG/20 ML Vial IV.PUSH PRN ×9 (01:51→23:20)
[2018-11-07] MEDS: Sod Chloride 0.9% Inj 1,000 ML IV.CONT SCH ×4 (02:40→23:51)
[2018-11-07 05:53] LABS: Baso # (Auto) 0.1 th/mm3 (0.0-0.2); Baso % (Auto) 0.3 % (0.0-2.0); Hematocrit 41.1 % (35.0-46.0); Lymph # (Auto) 1.6 th/mm3 (1.0-4.8); Lymph % (Auto) 7.6 % (9.0-44.0); Mean Corpuscular HGB Conc 33.9 % (32.0-36.0); Mean Corpuscular Hemoglobin 32.4 pg (27.0-34.0); Mean Corpuscular Volume 95.4 fL (80.0-100.0); Mean Platelet Volume 8.4 fL (7.0-11.0); Mono # (Auto) 1.3 th/mm3 (0.0-0.9); Mono % (Auto) 6.2 % (0.0-8.0); Neut # (Auto) 17.5 th/mm3 (1.8-7.7); Neut % (Auto) 85.9 % (16.0-70.0); Platelet Count 265 th/mm3 (150-450); Red Blood Count 4.31 mil/mm3 (4.00-5.30); Red Cell Distribution Width 14.1 % (11.6-17.2); White Blood Count 20.4 th/mm3 (4.0-11.0)
[2018-11-07 06:11] LABS: Alanine Aminotransferase 20 U/L (10-53); Albumin 3.9 g/dL (3.4-5.0); Anion Gap 9 meq/L (5-15); Aspartate Aminotransferase 11 U/L (15-37); Blood Urea Nitrogen 7 mg/dL (7-18); Calcium 8.8 mg/dL (8.5-10.1); Carbon Dioxide 21.8 meq/L (21.0-32.0); Chloride 109 meq/L (98-107); Glomerular Filtration Rate Greater Than 89 mL/min (>89); Glucose,Random 112 mg/dL (74-106); Potassium 3.6 meq/L (3.5-5.1); Sodium 140 meq/L (136-145)
[2018-11-07 06:14] LABS: Alkaline Phosphatase 65 U/L (45-117); Total Protein 7.9 g/dL (6.4-8.2)
[2018-11-07] MEDS: Senna/Docusate Sodium 8.6/50 MG Tablet PO SCH ×2 (09:17→20:26)
--- NOTE | 2018-11-07 09:35 | P.CONNEU ---
History of Present Illness Service: Neurology Primary Care Provider: UNKNOWN Chief Complaint: Seizure History of Present Illness: 33-year-old female admitted for witnessed seizure activity at home. She states she is compliantly been taking her Keppra. Glucose greater than 100. CT brain scan negative for any acute lesion. Urine drug screen positive for benzodiazepines. She was seen June 2018 Depakote was added for recurrent spells she states she has been unable to afford this medication. 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 States she began having seizures 4 years ago. No clear trigger or etiology. Denies any history of concussion febrile seizures or any family history of seizures. Denies any aura. States she will use a foam at the mouth and shake. She has been seen by neurology this year and also in 2017 there is been suspicion that the patient has been having nonepileptic spells. She also states she has migraine headaches worse with photophobia phonophobia at the frequent number of years several times a month. She is not on any prophylactic agent. 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 - Medical History Medical History: Medical History (Last Reviewed 11/06/18 @ 18:43 by WELLINGTON Baeza) Anxiety GERD (gastroesophageal reflux disease) Hypertension Seizures - Surgical History Surgical History: Surgical History (Last Reviewed 11/06/18 @ 18:43 by WELLINGTON Baeza) Previous section - Tobacco History Second Hand Smoke Exposure: No Smoking Status: Unknown if ever smoked Tobacco Type: Cigarettes - Alcohol History How Often Do You Have a Drink Containing Alcohol: 2 to 4 times a month - Substance Use History Substance History: Unable to Obtain - Travel History Recent Travel in the [place] Within the Last 8 Weeks: No Recent Travel Out of the Country Within the Last 8 Weeks: No Medications and Allergies Active Medications: Active Medications Acetaminophen (Tylenol) 650 mg PO Q4H PRN PRN Reason: Temp > 100.4 Al Hydroxide/Mg Hydroxide (Milk Of Magnshayna Liq) 30 ml PO Q12H PRN PRN Reason: Mild Constipation Bisacodyl (Dulcolax Supp) 10 mg RECTAL DAILY PRN PRN Reason: SEVERE CONSITIPATION Enalaprilat (Vasotec Inj) 1.25 mg IV.PUSH Q6H PRN PRN Reason: SBP>160, DBP>90 Last Admin: 11/07/18 00:01 Dose: 1.25 mg Sodium Chloride (Ns Inj) 1,000 mls @ 100 mls/hr IV.CONT .Q10H REPLACED BY [facility] Last Admin: 11/07/18 06:46 Dose: Not Given Levetiracetam 500 mg/ Sodium (Chloride) 105 mls @ 400 mls/hr IV.SIG Q12H REPLACED BY [facility] Last Infusion: 11/07/18 09:05 Dose: Infused Labetalol HCl (Trandate Inj) 10 mg IV.PUSH Q1H PRN PRN Reason: SBP> OR = 180, DBP> OR = 100 Last Admin: 11/07/18 09:07 Dose: 10 mg Lactulose (Lactulose Liq) 30 ml PO DAILY PRN PRN Reason: SEVERE CONSITIPATION Lorazepam (Ativan Inj) 1 mg IV.PUSH Q15M PRN PRN Reason: SEIZURES Last Admin: 11/07/18 00:01 Dose: 1 mg Ondansetron HCl (Zofran Inj) 4 mg IV.PUSH Q6H PRN PRN Reason: NAUSEA OR VOMITING Senna/Docusate Sodium (Roxanne-Colace) 1 tab PO BID REPLACED BY [facility] Last Admin: 11/07/18 09:17 Dose: Not Given Sennosides (Senokot) 17.2 mg PO Q12H PRN PRN Reason: Moderate Constipation Sodium Chloride (Ns Flush) 2 ml IV.FLUSH PRN PRN PRN Reason: FLUSH AFTER USING IV ACCESS Sodium Chloride (Ns Flush) 2 ml IV.FLUSH BID REPLACED BY [facility] Last Admin: 11/07/18 09:17 Dose: 2 ml Sodium Chloride (Ns Flush) 2 ml IV.FLUSH PRN PRN PRN Reason: FLUSH AFTER USING IV ACCESS Allergies Allergy/AdvReac Type Severity Reaction Status Date / Time No Known Allergies Allergy Unverified 06/14/18 14:56 Exam Vital signs: Vital Signs 11/06/18 19:05 11/06/18 19:16 11/06/18 19:24 Temperature 97.4 F L Pulse Rate 87 87 94 H Respiratory Rate 18 18 Blood Pressure 210/113 H 183/117 H Pulse Oximetry 98 98 94 L 11/06/18 19:31 11/06/18 20:18 11/06/18 20:53 Temperature Pulse Rate Respiratory Rate Blood Pressure 157/109 H 166/84 H Pulse Oximetry 100 11/06/18 23:47 11/06/18 23:56 11/07/18 00:00 Temperature 99.1 F 98.8 F Pulse Rate 97 H 109 H Respiratory Rate 20 22 Blood Pressure 190/110 H 209/120 H Pulse Oximetry 97 98 100 11/07/18 00:10 11/07/18 00:21 11/07/18 00:23 Temperature 100.0 F H Pulse Rate 105 H 107 H Respiratory Rate 20 Blood Pressure 175/116 H 183/110 H 171/117 H Pulse Oximetry 100 99 11/07/18 00:28 11/07/18 00:31 11/07/18 00:51 Temperature Pulse Rate 104 H 104 H 105 H Respiratory Rate 24 26 H Blood Pressure 183/99 H Pulse Oximetry 100 100 100 11/07/18 01:00 11/07/18 01:26 11/07/18 01:33 Temperature Pulse Rate 100 H 102 H 93 H Respiratory Rate 24 29 H 26 H Blood Pressure 155/100 H 180/113 H 203/99 H Pulse Oximetry 100 100 100 11/07/18 02:00 11/07/18 02:30 11/07/18 03:00 Temperature Pulse Rate 94 H 95 H 96 H Respiratory Rate 22 22 21 Blood Pressure 182/99 H 158/84 H Pulse Oximetry 100 100 100 11/07/18 04:00 11/07/18 05:00 11/07/18 05:57 Temperature 98.1 F Pulse Rate 90 95 H 97 H Respiratory Rate 22 22 Blood Pressure 158/96 H 171/96 H Pulse Oximetry 100 11/07/18 06:00 11/07/18 07:47 11/07/18 09:09 Temperature Pulse Rate 91 H 82 82 Respiratory Rate 20 22 Blood Pressure 123/62 180/99 H Pulse Oximetry 11/07/18 09:13 11/07/18 09:15 Temperature Pulse Rate Respiratory Rate 22 Blood Pressure Pulse Oximetry 100 100 Intake & Output 11/06/18 11/07/18 11/07/18 18:59 06:59 18:59 Intake Total 1210 / 1210 105 / 105 Balance 1210 / 1210 105 / 105 Weight 110.5 kg Intake: IV 1210 / 1210 105 / 105 NS Inj 1,000 ML @ Wide Open IV. 1000 / 1000 SIG [facility] Rx#:[id number] Keppra Inj 500 MG In NS Inj 100 210 / 210 105 / 105 ML @ 400 mls/hr IV.SIG Q12H [facility] Rx#:[id number] Oral 0 / 0 Other: # Voids 1 Weight On Admission 107 kg Narrative: GENERAL: in NAD, obese SKIN: Warm and dry. HEAD: Atraumatic. Normocephalic. EYES: Pupils equal and round. No scleral icterus. ENT: No nasal bleeding or discharge. RESPIRATORY: No accessory muscle use. MUSCULOSKELETAL: Extremities without clubbing, cyanosis, or edema. NEUROLOGICAL: Mildly somnolent easily arousable oriented x3 poor eye contact at times articulate no gaze deviation visual lozoya full pupils 4 3 mm bilaterally no facial asymmetry moves all 4 extremity gravity no obvious neglect gait not assessed secondary fall risk PSYCHIATRIC: Calm monotone speech - Constitutional no acute distress - Routine HEENT Exam Head: Present: normocephalic Eye: Present: EOMI Results - Labs CBC & Chem 7: 11/07/18 05:20 11/07/18 05:20 Labs: Laboratory Results - last 24 hr 11/06/18 11/06/18 11/06/18 18:46 18:46 20:23 WBC 14.8 H RBC 4.74 Hgb 15.2 Hct 45.0 MCV 94.9 MCH 32.0 MCHC 33.7 RDW 14.0 Plt Count 313 MPV 8.4 Neut % (Auto) 93.0 H Lymph % (Auto) 4.3 L [place] % (Auto) 2.5 Eos % (Auto) 0.0 Baso % (Auto) 0.2 Neut # (Auto) 13.8 H Lymph # (Auto) 0.6 L [place] # (Auto) 0.4 Eos # (Auto) 0.0 Baso # (Auto) 0.0 WBC Differential . Differential Comment Auto diff final Sodium 139 Potassium 4.0 Chloride 109 H Carbon Dioxide 20.2 L Anion Gap 10 BUN 8 Creatinine 0.85 Estimated GFR Greater than 89 POC Glucose Random Glucose 136 H Calcium 9.2 Magnesium 1.8 Total Bilirubin 0.5 AST 16 ALT 23 Alkaline Phosphatase 73 Total Protein 8.9 H Albumin 4.4 Urine Color Urine Clarity Urine pH Ur Specific [place] Urine Protein Urine Glucose (UA) Urine Ketones Urine Occult Blood Urine Nitrate Urine Bilirubin Urine Urobilinogen Ur Leukocyte Esterase Urine RBC Urine WBC Ur Squamous Epith Cells Urine Bacteria Hyaline Casts Urine Mucus Micro UA Comment Ur Microscopic Review Urine Culture Comments Nasal Screen MRSA (PCR) Urine Opiates Screen Neg Ur Barbiturates Screen Neg Ur Amphetamines Screen Neg U Benzodiazepines Scrn Pos H Urine Cocaine Screen Neg U Cannabinoids Screen Pos H 11/06/18 11/07/18 11/07/18 20:23 00:13 01:05 WBC RBC Hgb Hct MCV MCH MCHC RDW Plt Count MPV Neut % (Auto) Lymph % (Auto) [place] % (Auto) Eos % (Auto) Baso % (Auto) Neut # (Auto) Lymph # (Auto) [place] # (Auto) Eos # (Auto) Baso # (Auto) WBC Differential Differential Comment Sodium Potassium Chloride Carbon Dioxide Anion Gap BUN Creatinine Estimated GFR POC Glucose 123 H Random Glucose Calcium Magnesium Total Bilirubin AST ALT Alkaline Phosphatase Total Protein Albumin Urine Color Yellow Urine Clarity Hazy H Urine pH 6.0 Ur Specific [place] 1.021 Urine Protein 100 H Urine Glucose (UA) Negative Urine Ketones Trace H Urine Occult Blood Small H Urine Nitrate Negative Urine Bilirubin Negative Urine Urobilinogen Less than 2 Ur Leukocyte Esterase Negative Urine RBC 9 H Urine WBC 1 Ur Squamous Epith Cells 3 Urine Bacteria Rare H Hyaline Casts 3 Urine Mucus Few H Micro UA Comment Culture not ind Ur Microscopic Review Not Reportable Urine Culture Comments Culture not ind Nasal Screen MRSA (PCR) Not detected Urine Opiates Screen Ur Barbiturates Screen Ur Amphetamines Screen U Benzodiazepines Scrn Urine Cocaine Screen U Cannabinoids Screen 11/07/18 11/07/18 05:20 05:20 WBC 20.4 H RBC 4.31 Hgb 14.0 Hct 41.1 MCV 95.4 MCH 32.4 MCHC 33.9 RDW 14.1 Plt Count 265 MPV 8.4 Neut % (Auto) 85.9 H Lymph % (Auto) 7.6 L [place] % (Auto) 6.2 Eos % (Auto) 0.0 Baso % (Auto) 0.3 Neut # (Auto) 17.5 H Lymph # (Auto) 1.6 [place] # (Auto) 1.3 H Eos # (Auto) 0.0 Baso # (Auto) 0.1 WBC Differential . Differential Comment Auto diff final Sodium 140 Potassium 3.6 Chloride 109 H Carbon Dioxide 21.8 Anion Gap 9 BUN 7 Creatinine 0.76 Estimated GFR Greater than 89 POC Glucose Random Glucose 112 H Calcium 8.8 Magnesium Total Bilirubin 0.6 AST 11 L ALT 20 Alkaline Phosphatase 65 Total Protein 7.9 D Albumin 3.9 Urine Color Urine Clarity Urine pH Ur Specific Mead Urine Protein Urine Glucose (UA) Urine Ketones Urine Occult Blood Urine Nitrate Urine Bilirubin Urine Urobilinogen Ur Leukocyte Esterase Urine RBC Urine WBC Ur Squamous Epith Cells Urine Bacteria Hyaline Casts Urine Mucus Micro UA Comment Ur Microscopic Review Urine Culture Comments Nasal Screen MRSA (PCR) Urine Opiates Screen Ur Barbiturates Screen Ur Amphetamines Screen U Benzodiazepines Scrn Urine Cocaine Screen U Cannabinoids Screen Review/Management - Diagnosis (1) Migraine Code(s): G43.909 - Migraine, unspecified, not intractable, without status migrainosus Status: Acute Current Visit: Yes (2) Spells of decreased attentiveness Code(s): R68.89 - Other general symptoms and signs Status: Acute Current Visit: Yes (3) Seizure Code(s): R56.9 - Unspecified convulsions Status: Acute Current Visit: Yes - Review/Management Plan: Recurrent episodes. Epileptic versus nonepileptic spells Concerns for patient having nonepileptic spells and previous evaluations Recommendation EEG add Topamax 50 twice daily for migraines as well as an additional agent for the possibility of seizures. Side effects benefits discussed with patient. Agrees to treatment. There is no history of nephrolithiasis. Risk benefits for neural tube defect discussed with patient as well. Check Keppra level Therapy No spells If no episodes in the next 24 hours she can be discharged home No driving, operating any heavy machinery or dangerous machinery, swimming alone for at least 6 months of being seizure, spell free.
[2018-11-07] MEDS: Topiramate 25 MG Tablet PO SCH ×2 (10:00→20:26)
--- NOTE | 2018-11-07 10:43 | P.PNIM ---
Subjective Interval history: 33-year-old female admitted following 5 seizures yesterday with one more seizure overnight. She was started on Keppra and given multiple doses of Ativan. She has not had a seizure since last night. She was able to awaken and give me further history that states she has not been able to obtain Keppra in the last 2 months and therefore has not been taking her Keppra at all at home. She denies any recent illness, denies fevers, denies urinary tract symptoms. Physical Exam Vital signs: Last Vital Signs Temp 98.2 F 11/07/18 08:00 Pulse 78 11/07/18 10:32 Resp 22 11/07/18 09:15 BP 174/86 H 11/07/18 08:00 Pulse Ox 100 11/07/18 09:15 Intake & Output 11/05/18 11/06/18 11/07/18 11/08/18 06:59 06:59 06:59 06:59 Intake Total 1210 / 1210 105 / 105 Balance 1210 / 1210 105 / 105 Weight 110.5 kg Narrative: GENERAL: in NAD, obese SKIN: Warm and dry. HEAD: Atraumatic. Normocephalic. EYES: Pupils equal and round. No scleral icterus. ENT: No nasal bleeding or discharge. RESPIRATORY: No accessory muscle use. MUSCULOSKELETAL: Extremities without clubbing, cyanosis, or edema. NEUROLOGICAL: Mildly somnolent easily arousable oriented x3 poor eye contact at times articulate no gaze deviation visual lozoya full pupils 4 3 mm bilaterally no facial asymmetry moves all 4 extremity gravity no obvious neglect gait not assessed secondary fall risk PSYCHIATRIC: Calm monotone speech Results Labs CBC & Chem 7: 11/07/18 05:20 11/07/18 05:20 Assessment and Plan (1) Migraine: Code(s): G43.909 - Migraine, unspecified, not intractable, without status migrainosus Status: Acute (2) Spells of decreased attentiveness: Code(s): R68.89 - Other general symptoms and signs Status: Acute (3) Seizure: Code(s): R56.9 - Unspecified convulsions Status: Acute Plan Acute on chronic seizures Patient states she has been out of her Keppra for 2 months, this is the likely cause of yesterday's seizures Continue Keppra IV, continue Ativan as needed Patient has had no seizures today She should remain in ICU until she is seizure free for 24 hours Appreciate neurology consult Hypertension Patient remains hypertensive systolic in the 170s this morning Restart home dose amlodipine and Coreg Follow vital signs DVT prophylaxis SCDs _ (1) Migraine Qualifiers: Migraine type: Status migrainosus presence: Intractability:
[2018-11-07] MEDS: amLODIPine 5 MG Tablet PO SCH (11:27)
--- NOTE | 2018-11-07 13:30 | ECG ---
Date Performed: 11/06/2018 Time Performed: 18:34:45 PTAGE: 33 years EKG: Sinus rhythm POSSIBLE RIGHT ATRIAL ENLARGEMENT BORDERLINE ECG PREVIOUS TRACING : 10/02/2018 20.36 DOCTOR: Jesse Kerr Interpretating Date/Time 11/07/2018 13:27:46
--- NOTE | 2018-11-07 16:54 | MG ---
cc: William Staley MD EEG #[id number] Appearance of sleep state, generalized theta activity and spindles, 20-50 microvolts, K complexes. Good EEG variability reactivity. Limited driving during photic stimulation. During arousal, background incremented up to 7-8 Hz. Single lead EKG showing sinus rhythm. INTERPRETATION: Normal mainly stage II sleep electroencephalogram. Clinical correlation. William Staley MD MG/sb , 04:29 PM , 04:34 PM
[2018-11-07] MEDS ORDERED: Gadobutrol PF 10 MMOL/10 ML Vial (for RAD) IV.SIG ONE (18:01)
--- NOTE | 2018-11-07 18:39 | MR ---
EXAM DATE: 11/07/2018 6:29 PM EST AGE/SEX: 33 years / Female INDICATIONS: Epilepsy. CLINICAL DATA: This is the patient's initial encounter. Patient reports that signs and symptoms have been present for 1 day and indicates a pain score of 8/10. MEDICAL/SURGICAL HISTORY: Seizures. Hypertension. section. [place] [facility] [place]06[place] [facility] [place] 01/02. . TECHNIQUE: Multiplanar, multisequence examination of the brain was performed without and with 10 ml G adavist (gadobutrol) contrast as a single exam dose. FINDINGS: Cerebrum: The ventricles are normal for age. No evidence of midline shift, mass lesion, hemorrhage or acute infarction. No extraaxial fluid collections are seen. The pituitary gland and suprasellar cistern are normal in configuration. White Matter: No significant signal abnormalities are seen in the white matter. Posterior Fossa: The cerebellum and brainstem are intact. The 4th ventricle is midline. The cerebel lopontine angle is unremarkable. The cerebellar tonsils are normal in position. Diffusion Imaging: No focal areas of restricted diffusion are seen. No evidence of acute infarction . Extracranial: The visualized portions of the orbits and paranasal sinuses are unremarkable. Post Contrast: No abnormal areas of parenchymal or dural enhancement. No evidence of blood-brain ba rrier breakdown. CONCLUSION: 1. Negative MR Brain with and without contrast. Electronically signed by: Asad Marcelo MD Board Certified Radiologist 11/07/2018 6:37 PM EST
[2018-11-08] MEDS: Sod Chloride 0.9% Inj 1,000 ML IV.CONT SCH ×3 (02:05→21:47)
[2018-11-08] MEDS: Labetalol HCl Inj 100 MG/20 ML Vial IV.PUSH PRN ×5 (04:19→10:45)
--- NOTE | 2018-11-08 08:19 | P.PNNEU ---
Subjective Subjective Comments: No acute events, short nausea, no focal weakness vision loss or headache Active Medications: Active Medications Acetaminophen (Tylenol) 650 mg PO Q4H PRN PRN Reason: Temp > 100.4 Al Hydroxide/Mg Hydroxide (Milk Of Magnesia Liq) 30 ml PO Q12H PRN PRN Reason: Mild Constipation Amlodipine Besylate (Norvasc) 5 mg PO DAILY [facility] Last Admin: 11/07/18 11:27 Dose: 5 mg Bisacodyl (Dulcolax Supp) 10 mg RECTAL DAILY PRN PRN Reason: SEVERE CONSITIPATION Carvedilol (Coreg) 3.125 mg PO BID [facility] Last Admin: 11/07/18 20:26 Dose: 3.125 mg Enalaprilat (Vasotec Inj) 1.25 mg IV.PUSH Q6H PRN PRN Reason: SBP>160, DBP>90 Last Admin: 11/07/18 00:01 Dose: 1.25 mg Sodium Chloride (Ns Inj) 1,000 mls @ 100 mls/hr IV.CONT .Q10H [facility] Last Admin: 11/08/18 02:05 Dose: Not Given Levetiracetam 1,000 mg/ Sodium (Chloride) 110 mls @ 400 mls/hr IV.SIG Q12H [facility] Last Infusion: 11/07/18 21:50 Dose: Infused Labetalol HCl (Trandate Inj) 10 mg IV.PUSH Q1H PRN PRN Reason: SBP> OR = 180, DBP> OR = 100 Last Admin: 11/08/18 06:44 Dose: 10 mg Lactulose (Lactulose Liq) 30 ml PO DAILY PRN PRN Reason: SEVERE CONSITIPATION Lorazepam (Ativan Inj) 1 mg IV.PUSH Q15M PRN PRN Reason: SEIZURES Last Admin: 11/07/18 23:41 Dose: 1 mg Ondansetron HCl (Zofran Inj) 4 mg IV.PUSH Q6H PRN PRN Reason: NAUSEA OR VOMITING Last Admin: 11/08/18 01:14 Dose: 4 mg Senna/Docusate Sodium (Roxanne-Colace) 1 tab PO BID [facility] Last Admin: 11/07/18 20:26 Dose: 1 tab Sennosides (Senokot) 17.2 mg PO Q12H PRN PRN Reason: Moderate Constipation Sodium Chloride (Ns Flush) 2 ml IV.FLUSH PRN PRN PRN Reason: FLUSH AFTER USING IV ACCESS Sodium Chloride (Ns Flush) 2 ml IV.FLUSH BID [facility] Last Admin: 11/07/18 20:26 Dose: 2 ml Sodium Chloride (Ns Flush) 2 ml IV.FLUSH PRN PRN PRN Reason: FLUSH AFTER USING IV ACCESS Topiramate (Topamax) 50 mg PO BID [facility] Last Admin: 11/07/18 20:26 Dose: 50 mg Allergies/Adverse Reactions: Allergies Allergy/AdvReac Type Severity Reaction Status Date / Time No Known Allergies Allergy Unverified 06/14/18 14:56 Review of Systems All other systems reviewed negative except as stated in HPI Physical Exam Vital signs: Vital Signs 11/07/18 09:00 11/07/18 09:09 11/07/18 09:13 Temperature Pulse Rate 83 82 Respiratory Rate 27 H Blood Pressure 212/97 H Pulse Oximetry 100 100 11/07/18 09:15 11/07/18 10:00 11/07/18 10:04 Temperature Pulse Rate 79 85 Respiratory Rate 22 26 H 21 Blood Pressure 151/93 H 151/93 H Pulse Oximetry 100 100 99 11/07/18 10:32 11/07/18 11:00 11/07/18 11:02 Temperature Pulse Rate 78 89 74 Respiratory Rate 24 18 Blood Pressure 210/115 H 210/115 H Pulse Oximetry 100 100 11/07/18 12:00 11/07/18 12:05 11/07/18 12:30 Temperature 98.3 F Pulse Rate 95 H 79 Respiratory Rate 22 18 Blood Pressure 140/76 Pulse Oximetry 99 11/07/18 13:00 11/07/18 14:00 11/07/18 14:05 Temperature Pulse Rate 76 77 77 Respiratory Rate 23 22 25 H Blood Pressure 190/100 H 144/72 H Pulse Oximetry 100 98 100 11/07/18 15:00 11/07/18 15:19 11/07/18 15:29 Temperature Pulse Rate 75 77 76 Respiratory Rate 23 25 H Blood Pressure 188/113 H 199/100 H Pulse Oximetry 100 100 11/07/18 16:00 11/07/18 17:00 11/07/18 17:45 Temperature Pulse Rate 93 H 77 88 Respiratory Rate 46 H 24 41 H Blood Pressure 182/83 H 218/93 H Pulse Oximetry 100 100 98 11/07/18 18:04 11/07/18 18:34 11/07/18 18:35 Temperature Pulse Rate 77 Respiratory Rate Blood Pressure 184/96 H Pulse Oximetry 100 11/07/18 19:00 11/07/18 19:31 11/07/18 20:00 Temperature 98.5 F Pulse Rate 103 H 93 H 79 Respiratory Rate 84 H 28 H 16 Blood Pressure 136/80 Pulse Oximetry 91 L 100 100 11/07/18 20:10 11/07/18 20:22 11/07/18 20:50 Temperature Pulse Rate 84 82 77 Respiratory Rate 23 24 24 Blood Pressure 204/108 H 199/115 H Pulse Oximetry 100 100 100 11/07/18 21:00 11/07/18 21:10 11/07/18 21:44 Temperature Pulse Rate 76 74 81 Respiratory Rate 21 24 24 Blood Pressure 193/93 H 144/86 H Pulse Oximetry 100 100 100 11/07/18 22:00 11/07/18 22:18 11/07/18 23:00 Temperature Pulse Rate 79 77 92 H Respiratory Rate 24 24 22 Blood Pressure 199/102 H Pulse Oximetry 100 100 100 11/07/18 23:18 11/07/18 23:32 11/07/18 23:49 Temperature Pulse Rate 78 89 84 Respiratory Rate 17 25 H 22 Blood Pressure 218/112 H 178/98 H Pulse Oximetry 100 100 100 11/08/18 00:00 11/08/18 00:05 11/08/18 01:00 Temperature 98.7 F Pulse Rate 82 76 89 Respiratory Rate 24 24 Blood Pressure 178/95 H 117/65 Pulse Oximetry 100 100 11/08/18 02:00 11/08/18 02:06 11/08/18 03:00 Temperature Pulse Rate 87 76 78 Respiratory Rate 23 24 Blood Pressure 108/61 184/101 H Pulse Oximetry 100 100 11/08/18 03:09 11/08/18 04:00 11/08/18 04:09 Temperature 98.7 F Pulse Rate 74 78 73 Respiratory Rate 24 25 H 25 H Blood Pressure 164/96 H 184/108 H 193/119 H Pulse Oximetry 100 100 100 11/08/18 04:12 11/08/18 05:00 11/08/18 05:11 Temperature Pulse Rate 73 79 79 Respiratory Rate 18 26 H 27 H Blood Pressure 195/110 H 215/104 H Pulse Oximetry 100 100 100 11/08/18 05:20 11/08/18 05:40 11/08/18 05:48 Temperature Pulse Rate 78 80 78 Respiratory Rate 23 24 23 Blood Pressure 210/95 H Pulse Oximetry 100 100 100 11/08/18 06:00 Temperature Pulse Rate 75 Respiratory Rate 23 Blood Pressure 183/104 H Pulse Oximetry 100 Intake & Output 11/07/18 11/08/18 11/08/18 18:59 06:59 18:59 Intake Total 1205 / 1205 1460 / 1460 Output Total 1000 / 1000 300 / 300 Balance 205 / 205 1160 / 1160 Weight 110.5 kg Intake: IV 1105 / 1105 1220 / 1220 NS Inj 1,000 ML @ 100 mls/hr IV 1000 / 1000 1000 / 1000 .CONT .Q10H [facility] Rx#:[id number] Keppra Inj 1,000 MG In NS Inj 105 / 105 220 / 220 100 ML @ 400 mls/hr IV.SIG Q12H [facility] Rx#:[id number] Oral 100 / 100 240 / 240 Output: Urine 1000 / 1000 Emesis 300 / 300 Other: # Voids 1 Date of Last Bowel Movement 11/05/18 # Emeses 3 Narrative: GENERAL: in NAD, obese, looks well SKIN: Warm and dry. HEAD: Atraumatic. Normocephalic. EYES: Pupils equal and round. No scleral icterus. ENT: No nasal bleeding or discharge. RESPIRATORY: No accessory muscle use. MUSCULOSKELETAL: Extremities without clubbing, cyanosis, or edema. NEUROLOGICAL: Alert, oriented x3 poor eye contact, neck supple, articulate no gaze deviation visual lozoya full pupils 4 3 mm bilaterally no facial asymmetry moves all 4 extremity gravity no obvious neglect gait not assessed secondary fall risk, no involuntary movement PSYCHIATRIC: Calm monotone speech - Constitutional no acute distress - Routine HEENT Exam Head: Present: normocephalic Eye: Present: EOMI Review/Management - Diagnosis (1) Migraine Code(s): G43.909 - Migraine, unspecified, not intractable, without status migrainosus Status: Acute Current Visit: Yes (2) Spells of decreased attentiveness Code(s): R68.89 - Other general symptoms and signs Status: Acute Current Visit: Yes (3) Seizure Code(s): R56.9 - Unspecified convulsions Status: Acute Current Visit: Yes - Review/Management Plan: Recurrent episodes. Epileptic versus nonepileptic spells Concerns for patient having nonepileptic spells and previous evaluations Apparently had extensive continuous monitoring of [facility]; apparently negative for epileptic activity Recommendation EEG; negative seizure activity Continue Keppra and Topamax Blood pressure control Stress reduction Start Zoloft 25 daily Discharge planning once blood pressure controlled and nausea control No driving, operating any heavy machinery or dangerous machinery, swimming alone for at least 6 months of being seizure, spell free.
[2018-11-08] MEDS: Senna/Docusate Sodium 8.6/50 MG Tablet PO SCH ×2 (09:30→20:15)
[2018-11-08] MEDS ORDERED: Lisinopril 20 MG Tablet PO PRN (09:32)
[2018-11-08] MEDS: Topiramate 25 MG Tablet PO SCH ×2 (09:39→20:15)
--- NOTE | 2018-11-08 09:46 | P.PNIM ---
Subjective Interval history: 33-year-old female admitted for 6 seizures within 24 hours. Last night she had recurrent nausea and vomiting. She has a history of gastroparesis but denies any acute pain associated with her vomiting overnight. She denies any fevers but does demonstrate an elevated leukocyte count. Staff witnessed seizure-like activity this morning that was atypical, she looked over at staff fdc through her seizure, did not exhibit any post ictal affect. She reports that she has stomach aches and associated nausea depending on the types of food she eats, she blames spices but also agrees that the pattern is consistent with eating greasy food. Location of her pain is in the epigastrium, on exam she was not tender. Physical Exam Vital signs: Last Vital Signs Temp 98.5 F 11/08/18 08:00 Pulse 69 11/08/18 09:00 Resp 27 H 11/08/18 09:00 BP 172/91 H 11/08/18 09:00 Pulse Ox 100 11/08/18 09:00 Intake & Output 11/06/18 11/07/18 11/08/18 11/09/18 06:59 06:59 06:59 06:59 Intake Total 1210 / 1210 2665 / 2665 Output Total 1300 / 1300 Balance 1210 / 1210 1365 / 1365 Weight 110.5 kg 110.5 kg Narrative: GENERAL: in NAD, obese SKIN: Warm and dry. HEAD: Atraumatic. Normocephalic. EYES: Pupils equal and round. No scleral icterus. ENT: No nasal bleeding or discharge. RESPIRATORY: No accessory muscle use. MUSCULOSKELETAL: Extremities without clubbing, cyanosis, or edema. NEUROLOGICAL: Mildly somnolent easily arousable oriented x3 poor eye contact at times articulate no gaze deviation visual lozoya full pupils 4 3 mm bilaterally no facial asymmetry moves all 4 extremity gravity no obvious neglect gait not assessed secondary fall risk PSYCHIATRIC: Calm monotone speech Results Labs CBC & Chem 7: 11/07/18 05:20 11/07/18 05:20 Imaging Imaging: Impressions Head MRI 11/07/18 11:29 CONCLUSION: 1. Negative MR Brain with and without contrast. Assessment and Plan (1) Migraine: Code(s): G43.909 - Migraine, unspecified, not intractable, without status migrainosus Status: Acute (2) Spells of decreased attentiveness: Code(s): R68.89 - Other general symptoms and signs Status: Acute (3) Seizure: Code(s): R56.9 - Unspecified convulsions Status: Acute Plan Acute on chronic seizures Patient states she has been out of her Keppra for 2 months, this is the likely cause of yesterday's seizures Continue Keppra IV, continue Ativan as needed Exhibiting seizure versus pseudoseizure activity overnight Retaining patient in the ICU due to seizure-like activity Appreciate neurology consult Nausea & vomiting, leukocytosis Nonspecific, history of gastroparesis, not associated with any acute pain currently Leukocytosis is unexplained outside of seizure activity, should be trending downward, but is trending upward Ordering test STAT Ultrasound of gallbladder Chest x-ray Blood cultures Hypertension Patient remains hypertensive systolic in the 170s this morning Continue home dose amlodipine and Coreg Clonidine patch ordered Home dose lisinopril for breakthrough hypertension Follow vital signs DVT prophylaxis SCDs _ (1) Migraine Qualifiers: Migraine type: Status migrainosus presence: Intractability:
[2018-11-08] MEDS: amLODIPine 5 MG Tablet PO SCH (10:39)
--- NOTE | 2018-11-08 11:25 | US ---
EXAM DATE: 11/08/2018 11:05 AM EST AGE/SEX: 33 years / Female INDICATIONS: Abdominal pain. CLINICAL DATA: This is the patient's initial encounter. Patient reports that signs and symptoms have been present for 1 week and indicates a pain score of 7/10. MEDICAL/SURGICAL HISTORY: Gastroesophageal reflux disease. Hypertension. Anxiety. Seizures. C esarean section. COMPARISON: [facility] [place], CT ABDOMEN & PELVIS W CONTRAST, 10/02/2018. . MEASUREMENTS: Liver:__ 15.3 cm. Common Bile Duct:__ 6mm. Right Kidney:__ 10.3 x 4.2 x 4.6 cm. FINDINGS: Liver: There is mild increased echogenicity to the liver without focal lesion or ductal dilatation. Portal Vein: Hepatopedal flow seen in portal vein. Common Duct: No intraluminal mass or stone visualized. Gallbladder: Demonstrates no wall thickening or pericholecystic fluid. No stones visualized. Pancreas: Not well visualized. Right Kidney: Normal echogenicity and cortical thickness. No mass or hydronephrosis. Other: None. CONCLUSION: Suspected hepatic steatosis. Electronically signed by: Kumar Mitchell MD Board Certified Radiologist 11/08/2018 11:23 AM EST
--- NOTE | 2018-11-08 11:30 | XR ---
EXAM DATE: 11/08/2018 11:07 AM EST AGE/SEX: 33 years / Female INDICATIONS: Cough, chest pain, and shortness of breath. CLINICAL DATA: This is the patient's initial encounter. Patient reports that signs and symptoms have been present for 2 days and indicates a pain score of 8/10. MEDICAL/SURGICAL HISTORY: Hypertension. Gastroesophageal reflux disease. Gastroparesis. None. COMPARISON: [facility], RIBS LEFT(W PA CXR MIN 3VWS), 03/09/2018. . FINDINGS: A single AP view of the chest demonstrates the lungs to be symmetrically aerated without evidence of mass, infiltrate or effusion. The cardiomediastinal contours are unremarkable. Osseous structures a re intact. CONCLUSION: No acute cardiopulmonary process. Electronically signed by: Kumar Mitchell MD Board Certified Radiologist 11/08/2018 11:28 AM EST
[2018-11-08] MEDS: Sertraline 50 MG Tablet PO SCH (13:30)
[2018-11-09 04:06] LABS: Hematocrit 38.3 % (35.0-46.0); Hemoglobin 13.2 gm/dL (11.6-15.3); Mean Corpuscular HGB Conc 34.6 % (32.0-36.0); Mean Corpuscular Hemoglobin 32.8 pg (27.0-34.0); Mean Corpuscular Volume 94.8 fL (80.0-100.0); Mean Platelet Volume 8.3 fL (7.0-11.0); Platelet Count 255 th/mm3 (150-450); Red Blood Count 4.04 mil/mm3 (4.00-5.30); Red Cell Distribution Width 13.8 % (11.6-17.2); White Blood Count 11.9 th/mm3 (4.0-11.0)
[2018-11-09 04:46] LABS: Calcium 8.8 mg/dL (8.5-10.1); Carbon Dioxide 21.3 meq/L (21.0-32.0); Potassium 3.4 meq/L (3.5-5.1)
[2018-11-09 06:09] VITALS: TEMP 97.9
[2018-11-09] MEDS: Topiramate 25 MG Tablet PO SCH (08:51)
[2018-11-09] MEDS: Sertraline 50 MG Tablet PO SCH (08:52)
[2018-11-09] MEDS: amLODIPine 5 MG Tablet PO SCH (08:54)
[2018-11-09] MEDS: Senna/Docusate Sodium 8.6/50 MG Tablet PO SCH (08:55)
[2018-11-09 09:10] VITALS: O2SAT 97
[2018-11-09 10:40] VITALS: BP 104/62
[2018-11-09 10:52] LABS: Bacteria,Urine Moderate /hpf; Bilirubin,Urine Negative (Negative); Clarity,Urine Cloudy (Clear); Color,Urine Amber (Yellw/Straw); Glucose,Urine (UA) Negative (Negative); Hyaline Casts,Urine 155 /lpf (0-3); Leukocyte Esterase,Urine Negative (Negative); Mucus,Urine Many /lpf (Occasional); Nitrite,Urine Negative (Negative); Specific Gravity,Urine 1.028 (1.002-1.035); Squamous Epithelial Cell,Urine 14 /hpf (0-5)
[2018-11-09 11:20] VITALS: PULSE 64; RESP 12
[2018-11-09 11:34] LABS: Calcium 8.9 mg/dL (8.5-10.1); Carbon Dioxide 20.8 meq/L (21.0-32.0); Potassium 3.6 meq/L (3.5-5.1)
--- NOTE | 2018-11-09 11:47 | P.PNNEU ---
Subjective Subjective Comments: No cp, no dyspnea, no nur, no focal weakness, no vision loss. daniele po. no sz. wants to go home Active Medications: Active Medications Acetaminophen (Tylenol) 650 mg PO Q4H PRN PRN Reason: Temp > 100.4 Al Hydroxide/Mg Hydroxide (Milk Of Magnesia Liq) 30 ml PO Q12H PRN PRN Reason: Mild Constipation Amlodipine Besylate (Norvasc) 5 mg PO DAILY [facility] Last Admin: 11/09/18 08:54 Dose: Not Given Bisacodyl (Dulcolax Supp) 10 mg RECTAL DAILY PRN PRN Reason: SEVERE CONSITIPATION Carvedilol (Coreg) 3.125 mg PO BID [facility] Last Admin: 11/09/18 08:54 Dose: Not Given Enalaprilat (Vasotec Inj) 1.25 mg IV.PUSH Q6H PRN PRN Reason: SBP>160, DBP>90 Last Admin: 11/07/18 00:01 Dose: 1.25 mg Sodium Chloride (Ns Inj) 1,000 mls @ 100 mls/hr IV.CONT .Q10H [facility] Last Infusion: 11/09/18 09:23 Dose: 0 mls/hr Levetiracetam 1,000 mg/ Sodium (Chloride) 110 mls @ 400 mls/hr IV.SIG Q12H [facility] Last Infusion: 11/09/18 11:41 Dose: Infused Labetalol HCl (Trandate Inj) 10 mg IV.PUSH Q1H PRN PRN Reason: SBP> OR = 180, DBP> OR = 100 Last Admin: 11/08/18 10:45 Dose: 10 mg Lactulose (Lactulose Liq) 30 ml PO DAILY PRN PRN Reason: SEVERE CONSITIPATION Lisinopril (Prinivil) 40 mg PO DAILY PRN PRN Reason: SBP>160, DBP>90 Lorazepam (Ativan Inj) 1 mg IV.PUSH Q15M PRN PRN Reason: SEIZURES Last Admin: 11/08/18 23:39 Dose: 1 mg Ondansetron HCl (Zofran Inj) 4 mg IV.PUSH Q6H PRN PRN Reason: NAUSEA OR VOMITING Last Admin: 11/08/18 21:47 Dose: 4 mg Pantoprazole Sodium (Protonix) 40 mg PO DAILY [facility] Last Admin: 11/09/18 08:52 Dose: 40 mg Patch Removal (Remove Old Patch) 1 each T-DERMAL Q7D [facility] Senna/Docusate Sodium (Roxanne-Colace) 1 tab PO BID [facility] Last Admin: 11/09/18 08:55 Dose: Not Given Sennosides (Senokot) 17.2 mg PO Q12H PRN PRN Reason: Moderate Constipation Sertraline HCl (Zoloft) 25 mg PO DAILY [facility] Last Admin: 11/09/18 08:52 Dose: 25 mg Sodium Chloride (Ns Flush) 2 ml IV.FLUSH PRN PRN PRN Reason: FLUSH AFTER USING IV ACCESS Sodium Chloride (Ns Flush) 2 ml IV.FLUSH BID [facility] Last Admin: 11/09/18 08:55 Dose: 2 ml Sodium Chloride (Ns Flush) 2 ml IV.FLUSH PRN PRN PRN Reason: FLUSH AFTER USING IV ACCESS Topiramate (Topamax) 50 mg PO BID [facility] Last Admin: 11/09/18 08:51 Dose: 50 mg Allergies/Adverse Reactions: Allergies Allergy/AdvReac Type Severity Reaction Status Date / Time No Known Allergies Allergy Unverified 06/14/18 14:56 Review of Systems All other systems reviewed negative except as stated in HPI Physical Exam Vital signs: Vital Signs 11/08/18 12:00 11/08/18 12:18 11/08/18 13:00 Temperature 98.2 F Pulse Rate 69 66 69 Respiratory Rate 24 23 Blood Pressure 189/91 H 177/94 H Pulse Oximetry 100 100 11/08/18 14:00 11/08/18 15:00 11/08/18 16:00 Temperature 97.8 F Pulse Rate 72 74 68 Respiratory Rate 24 22 23 Blood Pressure 164/95 H 164/70 H Pulse Oximetry 100 100 11/08/18 16:05 11/08/18 17:04 11/08/18 17:12 Temperature Pulse Rate 72 83 76 Respiratory Rate 11 L 15 Blood Pressure 161/106 H Pulse Oximetry 11/08/18 18:00 11/08/18 18:02 11/08/18 18:08 Temperature Pulse Rate 81 80 83 Respiratory Rate 23 23 Blood Pressure 122/82 122/82 Pulse Oximetry 11/08/18 18:50 11/08/18 19:00 11/08/18 19:50 Temperature Pulse Rate 82 76 78 Respiratory Rate 18 23 21 Blood Pressure 124/79 124/79 118/72 Pulse Oximetry 11/08/18 20:00 11/08/18 20:22 11/08/18 20:49 Temperature 98.6 F Pulse Rate 75 72 Respiratory Rate 21 24 Blood Pressure Pulse Oximetry 100 99 11/08/18 20:50 11/08/18 21:00 11/08/18 21:50 Temperature Pulse Rate 73 77 76 Respiratory Rate 23 23 20 Blood Pressure 106/65 Pulse Oximetry 11/08/18 22:00 11/08/18 22:50 11/08/18 22:53 Temperature Pulse Rate 77 75 77 Respiratory Rate 23 22 21 Blood Pressure 90/57 L 93/54 L Pulse Oximetry 11/08/18 23:00 11/08/18 23:50 11/08/18 23:53 Temperature 98.3 F Pulse Rate 75 76 78 Respiratory Rate 23 21 21 Blood Pressure 92/52 L 92/52 L Pulse Oximetry 98 11/09/18 00:00 11/09/18 00:50 11/09/18 01:00 Temperature Pulse Rate 78 77 83 Respiratory Rate 22 22 22 Blood Pressure 92/53 L Pulse Oximetry 11/09/18 01:50 11/09/18 01:58 11/09/18 02:00 Temperature Pulse Rate 74 74 74 Respiratory Rate 21 19 22 Blood Pressure 95/58 L Pulse Oximetry 11/09/18 02:50 11/09/18 02:56 11/09/18 02:57 Temperature Pulse Rate 72 70 71 Respiratory Rate 21 21 20 Blood Pressure 94/51 L Pulse Oximetry 11/09/18 03:00 11/09/18 03:50 11/09/18 04:00 Temperature 97.9 F Pulse Rate 75 72 71 Respiratory Rate 24 22 22 Blood Pressure 100/57 L Pulse Oximetry 11/09/18 04:50 11/09/18 04:52 11/09/18 05:00 Temperature Pulse Rate 69 67 74 Respiratory Rate 21 21 22 Blood Pressure 90/53 L 106/58 L Pulse Oximetry 11/09/18 05:50 11/09/18 05:56 11/09/18 06:00 Temperature Pulse Rate 69 72 70 Respiratory Rate 20 22 22 Blood Pressure 93/59 L Pulse Oximetry 99 11/09/18 06:50 11/09/18 07:00 11/09/18 07:50 Temperature Pulse Rate 71 72 72 Respiratory Rate 19 19 21 Blood Pressure 104/55 L 102/56 L Pulse Oximetry 11/09/18 08:00 11/09/18 08:50 11/09/18 09:00 Temperature Pulse Rate 71 70 76 Respiratory Rate 20 14 22 Blood Pressure 103/61 Pulse Oximetry 97 11/09/18 09:50 11/09/18 10:00 11/09/18 11:00 Temperature Pulse Rate 71 71 64 Respiratory Rate 16 17 12 Blood Pressure 104/62 Pulse Oximetry 97 Intake & Output 11/08/18 11/09/18 11/09/18 18:59 06:59 18:59 Intake Total 1590 / 1590 2270 / 2270 110 / 110 Output Total 1400 / 1400 Balance 190 / 190 2270 / 2270 110 / 110 Weight 106.8 kg Intake: IV 1110 / 1110 1310 / 1310 110 / 110 NS Inj 1,000 ML @ 100 mls/hr IV 1000 / 1000 1200 / 1200 0 / 0 .CONT .Q10H [facility] Rx#:[id number] Keppra Inj 1,000 MG In NS Inj 110 / 110 110 / 110 110 / 110 100 ML @ 400 mls/hr IV.SIG Q12H [facility] Rx#:[id number] Oral 480 / 480 960 / 960 Output: Urine 800 / 800 Emesis 600 / 600 Other: # Voids 3 Date of Last Bowel Movement 11/05/18 11/08/18 11/08/18 # Bowel Movements 1 Narrative: GENERAL: in NAD, mildly obese, looks well SKIN: Warm and dry. HEAD: Atraumatic. Normocephalic. EYES: Pupils equal and round. No scleral icterus. ENT: No nasal bleeding or discharge. RESPIRATORY: No accessory muscle use. MUSCULOSKELETAL: Extremities without clubbing, cyanosis, or edema. NEUROLOGICAL: Alert, oriented x3, neck supple, articulate no gaze deviation visual lozoya full pupils 4 3 mm bilaterally no facial asymmetry moves all 4 extremity gravity no obvious neglect gait not assessed secondary fall risk, no involuntary movement PSYCHIATRIC: mood brighter - Constitutional no acute distress - Routine HEENT Exam Head: Present: normocephalic Objective Laboratory Results - last 24 hr 11/07/18 11/08/18 11/09/18 11:00 10:25 03:28 WBC 11.9 H RBC 4.04 Hgb 13.2 Hct 38.3 MCV 94.8 MCH 32.8 MCHC 34.6 RDW 13.8 Plt Count 255 MPV 8.3 Sodium Potassium Chloride Carbon Dioxide Anion Gap BUN Creatinine Estimated GFR Random Glucose Calcium Beta HCG, Qual Less than 1.0 Urine Color Urine Clarity Urine pH Ur Specific [place] Urine Protein Urine Glucose (UA) Urine Ketones Urine Occult Blood Urine Nitrate Urine Bilirubin Urine Urobilinogen Ur Leukocyte Esterase Urine RBC Urine WBC Ur Squamous Epith Cells Urine Bacteria Hyaline Casts Urine Mucus Micro UA Comment Ur Microscopic Review Urine Culture Comments Levetiracetam 12.8 11/09/18 11/09/18 11/09/18 03:28 10:20 10:45 WBC RBC Hgb Hct MCV MCH MCHC RDW Plt Count MPV Sodium 138 136 Potassium 3.4 L 3.6 Chloride 105 104 Carbon Dioxide 21.3 20.8 L Anion Gap 12 11 BUN 19 H 22 H Creatinine 1.54 H 1.34 H Estimated GFR 46 L 54 L Random Glucose 104 101 Calcium 8.8 8.9 Beta HCG, Qual Urine Color Isa Urine Clarity Cloudy H Urine pH 5.0 Ur Specific [place] 1.028 Urine Protein 30 H Urine Glucose (UA) Negative Urine Ketones Trace H Urine Occult Blood Negative Urine Nitrate Negative Urine Bilirubin Negative Urine Urobilinogen Less than 2 Ur Leukocyte Esterase Negative Urine RBC Less than 1 Urine WBC 4 Ur Squamous Epith Cells 14 Urine Bacteria Moderate H Hyaline Casts 155 Urine Mucus Many H Micro UA Comment Culture indicated Ur Microscopic Review Not Reportable Urine Culture Comments Culture indicated Levetiracetam Microbiology 11/08/18 10:25 Aerobic Blood Culture - Preliminary Blood - Peripheral No growth in 1 day Anaerobic Blood Culture - Preliminary No growth in 1 day 11/08/18 10:29 Aerobic Blood Culture - Preliminary Blood - Peripheral No growth in 1 day Anaerobic Blood Culture - Preliminary No growth in 1 day Review/Management - Diagnosis (1) Migraine Code(s): G43.909 - Migraine, unspecified, not intractable, without status migrainosus Status: Acute Current Visit: Yes (2) Spells of decreased attentiveness Code(s): R68.89 - Other general symptoms and signs Status: Acute Current Visit: Yes (3) Seizure Code(s): R56.9 - Unspecified convulsions Status: Acute Current Visit: Yes - Review/Management Plan: Recurrent episodes. Epileptic versus nonepileptic spells Concerns for patient having nonepileptic spells and previous evaluations Apparently had extensive continuous monitoring of [facility]; apparently negative for epileptic activity Recommendation EEG; negative seizure activity Continue Keppra and Topamax Blood pressure control Stress reduction Zoloft 25 daily Discharge planning today from neuro f/u with her pcp No driving, operating any heavy machinery or dangerous machinery, swimming alone for at least 6 months of being seizure, spell free.
== END 2018-11-09 13:06 | disposition home or self-care (01) ==
LOC: NEPC 18:19 → NEDA 20:31 → N06 23:30 → N03 11-07 00:20
PROVIDERS: ADMIT Hospitalist; ATTEND Hospitalist
DX: E66.9 Obesity, unspecified; Z79.899 Other long term (current) drug therapy; Z68.41 Body mass index [BMI] 40.0-44.9, adult; R56.9 Unspecified convulsions; K21.9 Gastro-esophageal reflux disease without esophagitis; D72.829 Elevated white blood cell count, unspecified; G43.909 Migraine, unspecified, not intractable, without status migrainosus; K31.84 Gastroparesis; I10 Essential (primary) hypertension